=== PATIENT | male | born 1955 | race Caucasian/White ===

== ENCOUNTER 2019-05-27 17:24 | Inpatient (IN) | payer OTHER ==
[2019-05-27] MEDS ORDERED: CEFEPIME/SWI 2gm 2 GM/20 ML SYR IVP ONE (17:45)
[2019-05-27] MEDS ORDERED: VANCOMYCIN/NS 1 gm 1 GM/250 ML BAG IV ONE (17:45)
[2019-05-27 18:10] LABS: Basophils % 0.4 % (0-1.3); Hematocrit 23.3 % (39.6-49.0); Lymphocytes % 7.9 % (15.3-44.8); MPV 7.8 fL (7.6-11.3); RBC Red Blood Cell Count 2.83 M/uL (4.33-5.43)
--- NOTE | 2019-05-27 18:11 | ER ---
Nurse's Notes [facility] Name: Vikas Sharma Age: 63 yrs Sex: Male : 1955 Arrival Date: 05/27/2019 Time: 17:33 Bed 15 Private MD: Diagnosis: Severe sepsis without septic shock;Pneumonia, unspecified organism;Unspecified bacterial pneumonia;Hypotension;Anemia, unspecified;Gastrointestinal hemorrhage, unspecified Presentation: 05/27 17:30 Presenting complaint: EMS states: Decreased appetite, productive cough, generalized jl7 weakness x 2 to 3 weeks. Transition of care: patient was not received from another setting of care. Onset of symptoms was May 06, 2019. Risk Assessment: Do you want to hurt yourself or someone else? Patient reports no desire to harm self or others. Initial Sepsis Screen: Does the patient meet any 2 criteria? RR > 20 per min. HR > 90 bpm. Yes Does the patient have a suspected source of infection? Yes: Productive cough/pneumonia If YES to both, name of provider notified: Pablo Jack MD 17:30 Method Of Arrival: EMS: [facility] 7 17:30 Acuity: DAPHNE 2 jl7 17:30 Care prior to arrival: Medication(s) given: Normal saline infusion, 100 ml IV jl7 initiated. 18 GA, in the left antecubital area, Glucose check: 150. Triage Assessment: 17:30 General: Appears distressed, uncomfortable, ill, slender, Behavior is cooperative, jl7 restless. Pain: Complains of pain in all over Quality of pain is described as aching. Neuro: Level of Consciousness is awake, alert, obeys commands, Oriented to person, place, time, situation. Cardiovascular: Patient's skin is warm and dry. Respiratory: Airway is patent Respiratory effort is even, labored, with nasal flaring, Respiratory pattern is symmetrical, tachypnea Sputum is thick, Breath sounds are diminished in right middle lobe, right lower lobe and left posterior lower lobe. GI: Reports diarrhea. Derm: Skin is dry, Skin is pale, Skin temperature is warm. Historical: - Allergies: 19:14 No Known Allergies; jl7 - PMHx: 19:14 High Cholesterol; Hypertension; Psoriatic arthritis; jl7 - Immunization history:: Pneumococcal vaccine is up to date, Flu vaccine is up to date. - Coronavirus screen:: The patient has NOT traveled to [place] in the past 14 days. Proceed with normal triage process as indicated. - Family history:: not pertinent. - Social history:: Smoking status: Patient reports the use of cigarette tobacco products, smokes one pack cigarettes per day. "I quit 3 weeks ago.". - Ebola Screening: : No symptoms or risks identified at this time. Screenin:30 Abuse screen: Denies threats or abuse. Denies injuries from another. Nutritional jl7 screening: Had unintentional weight loss of 10 pounds or more. Intervention for positive screen: ED Physician notified. Tuberculosis screening: No symptoms or risk factors identified. 17:30 Fall Risk No fall in past 12 months (0 pts). No secondary diagnosis (0 pts). IV access jl7 (20 points). Ambulatory Aid- None/Bed Rest/Nurse Assist (0 pts). Gait- Weak (10 pts.). Mental Status- Oriented to own ability (0 pts). Total Liu Fall Scale indicates Low Risk Score (25-44 pts). Fall prevention measures have been instituted. Side Rails Up X 2 Placed close to Nursing Station Frequent Obs/Assesments occuring Family Present and informed to notify staff if they need to leave bedside As available Patient and Family Educated on Fall Prevention Program and strategies. Assessment: 17:30 General: See triage assessment. jl7 18:30 Reassessment: Patient appears in no apparent distress at this time. No changes from jl7 previously documented assessment. Patient and/or family updated on plan of care and expected duration. Pain level reassessed. Patient is alert, oriented x 3, equal unlabored respirations, skin warm/dry/pink. 20:21 Reassessment: ultrasound was done before taking the patient in the ICU. antibiotics are rv still infusing upon transfer. for blood transfusion after the antibiotics. patient is alert and oriented, GCS [address] Jack ordered additional medications and left, unable to verify the orders. Vital Signs: 17:30 BP 107 / 67; Pulse 109; Resp 28 S; Temp 98.6(O); Pulse Ox 95% on R/A; Weight 72.57 kg jl7 (R); 17:45 BP 99 / 60; Pulse 106; Resp 29 S; Pulse Ox 95% on R/A; jl7 19:00 BP 105 / 70; Pulse 93; Resp 18; Pulse Ox 100% on R/A; rv 20:00 BP 131 / 62; Pulse 104; Resp 24; Pulse Ox 99% on R/A; rv ED Course: 17:30 Arm band placed on right wrist. jl7 17:30 Patient has correct armband on for positive identification. Placed in gown. Bed in low jl7 position. Call light in reach. Side rails up X2. vehicle monitor technician on. Pulse ox on. NIBP on. Warm blanket given. 17:33 Patient arrived in ED. ae4 17:33 Pablo Jack MD is Attending Physician. ute 17:45 Initial lab(s) drawn, by wv, sent to lab. First set of blood cultures drawn by me. jl7 17:54 Sandro Infante RN is Primary Nurse. jl7 18:00 Second set of blood cultures drawn by lab staff. EKG done, by ED staff, reviewed by xiomy Jack MD. Maintain EMS IV. Dressing intact. Good blood return noted. Site clean \\T\\ dry. Gauge \\T\\ site: 18 left AC. 18:05 Radiology exam delayed due to lab results not completed at this time. (BUN/Creatinine). bq 18:07 Joel Manzano MD is Hospitalizing Provider. ute 18:15 Notified ED physician of a critical lab result(s). WBC 25.5, Hbg 7.5. sg 18:20 Notified ED physician of a critical lab result(s). Lac 2.2, AST 118, ALT 399. sg 18:35 Triage completed. jl7 18:35 Blood Blank, Deysi that orders for blood have been faxed, awaiting results from confirmation ABO/RH at this time per Katty. 19:00 Report given to EVELINA Thakur. jl7 19:00 Inserted saline lock: 20 gauge in right forearm, using aseptic technique. Blood jl7 collected. 19:02 CT completed. Patient tolerated procedure well. Patient moved back from CT. mw3 20:25 No provider procedures requiring assistance completed. Patient admitted, IV remains in rv place. Administered Medications: 17:58 Not Given (Duplicate Order): Cefepime 2 grams IVPB at 200 ml/hr once over 30 mins; (mix ute in NS 100 mL) 18:10 Drug: vancoMYCIN 1 grams Route: IVPB; Infused Over: 2 hrs; Site: right forearm; jl7 20:20 Follow up: IV Status: Infusion continued upon admission rv 18:15 Drug: Pepcid 20 mg Route: IVP; Site: left antecubital; jl7 19:12 Follow up: Response: No adverse reaction jl7 18:15 Drug: Xopenex 2.5 mg Route: Inhalation; jl7 18:15 Drug: AtroVENT Aerosol 0.5 mg Route: Inhalation; jl7 19:12 Follow up: Response: No adverse reaction jl7 18:20 Drug: NS 0.9% (30 ml/kg) 30 ml/kg Route: IV; Rate: bolus; Site: left antecubital; jl7 20:20 Follow up: IV Status: Completed infusion; IV Intake: 2000ml rv 18:20 Drug: Solu-CORTEF 100 mg Route: IVP; Site: right forearm; jl7 20:18 Follow up: Response: No adverse reaction rv 19:23 Drug: Zosyn 3.375 grams Route: IVPB; Infused Over: 60 mins; Site: left antecubital; rv 20:18 Follow up: IV Status: Infusion continued upon admission rv 19:44 Drug: ProTONIX 40 mg Route: IVP; Site: left antecubital; rv 20:15 Follow up: Response: No adverse reaction rv 19:46 Drug: Thiamine 100 mg Route: IV; Rate: per protocol; Site: right forearm; rv 20:17 Follow up: IV Status: Completed infusion rv 20:15 Not Given (unable to verify): vancoMYCIN 500 mg IVPB once over 1 hrs rv 20:17 Not Given (unable to verify): ProTONIX 40 mg IVP once rv Intake: 20:20 IV: 2000ml; Total: 2000ml. rv Outcome: 18:09 Decision to Hospitalize by Provider. ute 20:26 Admitted to Med/surg accompanied by nurse, via stretcher, room 3, on monitor, with rv chart, Report called to NATALI HOYT 20:26 Condition: stable 20:26 Discharge instructions given to patient, family, Instructed on the need for admit, Demonstrated understanding of instructions. 20:27 Patient left the ED. rv Signatures: Riaz Bolivar RN RN sg Anderson, Corey, MD MD cha Quilty, Betty bq Leal, Jahala, RN RN jl7 Roxanne Alvarez mw3 Clayton Modi, RN RN rv Mohan Wagner RN RN ae4
[2019-05-27] MEDS ORDERED: LEVALBUTEROL 1.25 MG/3 ML NEB ONE (18:12)
[2019-05-27] MEDS ORDERED: PIPER/TAZO/NS 3.375gm 3.375 GM/100 ML BAG ONE (18:12)
[2019-05-27] MEDS ORDERED: FAMOTIDINE 20 MG/2 ML VIAL IV ONE (18:12)
[2019-05-27] MEDS ORDERED: HYDROCORTISONE SUC 100 MG INJ ONE (18:12)
[2019-05-27] MEDS ORDERED: IPRATROPIUM BROM 0.5MG/2.5ML ONE (18:12)
[2019-05-27] MEDS ORDERED: NA CHLORIDE 0.9% 2,000 ML ONE (18:12)
--- NOTE | 2019-05-27 18:12 | EDPHYS ---
Physician Documentation [facility] Name: Vikas Sharma Age: 63 yrs Sex: Male : 1955 Arrival Date: 05/27/2019 Time: 17:33 Bed 15 Private MD: ED Physician Pablo Jack HPI: 05/27 17:36 This 63 yrs old Male presents to ER via Unassigned with complaints of weak, ute cough, anorexia and wt loss. 17:36 The patient or guardian reports cough, flu symptoms. Onset: The symptoms/episode ute began/occurred 14 day(s) ago. Modifying factors: The symptoms are alleviated by changing position, the symptoms are aggravated by nothing. fever, weak , hypotension x 14 days. Severity of symptoms: At their worst the symptoms were moderate, in the emergency department the symptoms are unchanged. Associated signs and symptoms: Pertinent positives: fever, rhinorrhea, sore throat. Historical: - Allergies: 19:14 No Known Allergies; jl7 - PMHx: 19:14 High Cholesterol; Hypertension; Psoriatic arthritis; jl7 - Immunization history:: Pneumococcal vaccine is up to date, Flu vaccine is up to date. - Coronavirus screen:: The patient has NOT traveled to [place] in the past 14 days. Proceed with normal triage process as indicated. - Family history:: not pertinent. - Social history:: Smoking status: Patient reports the use of cigarette tobacco products, smokes one pack cigarettes per day. "I quit 3 weeks ago.". - Ebola Screening: : No symptoms or risks identified at this time. ROS: 17:36 Constitutional: Negative for fever, chills, and weight loss, Eyes: Negative for injury, ute pain, redness, and discharge, ENT: Negative for injury, pain, and discharge, Neck: Negative for injury, pain, and swelling, Abdomen/GI: Negative for abdominal pain, nausea, vomiting, diarrhea, and constipation, Back: Negative for injury and pain, : Negative for injury, bleeding, discharge, and swelling, MS/Extremity: Negative for injury and deformity, Neuro: Negative for headache, weakness, numbness, tingling, and seizure. 17:36 Cardiovascular: Positive for palpitations. 17:36 Respiratory: Positive for cough, shortness of breath, at rest. Exam: 17:36 Constitutional: This is a well developed, well nourished patient who is awake, alert, ute and in no acute distress. Head/Face: Normocephalic, atraumatic. Eyes: Pupils equal round and reactive to light, extra-ocular motions intact. Lids and lashes normal. Conjunctiva and sclera are non-icteric and not injected. Cornea within normal limits. Periorbital areas with no swelling, redness, or edema. ENT: Nares patent. No nasal discharge, no septal abnormalities noted. Tympanic membranes are normal and external auditory canals are clear. Oropharynx with no redness, swelling, or masses, exudates, or evidence of obstruction, uvula midline. Mucous membranes moist. Neck: Trachea midline, no thyromegaly or masses palpated, and no cervical lymphadenopathy. Supple, full range of motion without nuchal rigidity, or vertebral point tenderness. No Meningismus. Chest/axilla: Normal chest wall appearance and motion. Nontender with no deformity. No lesions are appreciated. Abdomen/GI: Soft, non-tender, with normal bowel sounds. No distension or tympany. No guarding or rebound. No evidence of tenderness throughout. Back: No spinal tenderness. No costovertebral tenderness. Full range of motion. Male : Normal genitalia with no discharge or lesions. MS/ Extremity: Pulses equal, no cyanosis. Neurovascular intact. Full, normal range of motion. Neuro: Awake and alert, GCS 15, oriented to person, place, time, and situation. Cranial nerves II-XII grossly intact. Motor strength 5/5 in all extremities. Sensory grossly intact. Cerebellar exam normal. Normal gait. Psych: Awake, alert, with orientation to person, place and time. Behavior, mood, and affect are within normal limits. 17:36 Cardiovascular: Rate: tachycardic, Rhythm: regular, Pulses: Pulses are 4+ in bilateral radial, brachial, femoral, popliteal, posterior tibial and and dorsalis pedis arteries.. Heart sounds: normal, Edema: is not appreciated, JVD: is not appreciated. 18:07 Respiratory: the patient does not display signs of respiratory distress, Respirations: ute labored breathing, that is mild, Breath sounds: decreased breath sounds, rhonchi, that are moderate, are heard in the right middle lobe, right lower lobe, right posterior middle lobe and right posterior lower lobe, wheezing: expiratory 19:20 Abdomen/GI: Inspection: abdomen appears normal, Bowel sounds: normal, Palpation: soft, ute nontender, in all quadrants, Rectal exam: Stool: guaiac positive, hemorrhoid(s), are not appreciated, mass, is not appreciated, swelling, is not appreciated, tenderness, is not appreciated, fecal impaction, is not appreciated, the exam is chaperoned by the nurse, Liver: no appreciated palpable abnormalities, tenderness, is not appreciated, Hernia: not appreciated, no melena, no coffee ground emesis. Vital Signs: 17:30 BP 107 / 67; Pulse 109; Resp 28 S; Temp 98.6(O); Pulse Ox 95% on R/A; Weight 72.57 kg jl7 (R); 17:45 BP 99 / 60; Pulse 106; Resp 29 S; Pulse Ox 95% on R/A; jl7 19:00 BP 105 / 70; Pulse 93; Resp 18; Pulse Ox 100% on R/A; rv 20:00 BP 131 / 62; Pulse 104; Resp 24; Pulse Ox 99% on R/A; rv MDM: 17:39 Data reviewed: vital signs, nurses notes, old medical records, EKG, radiologic studies, [facility] CT scan, plain films. 17:39 Patient medically screened. [facility] 05/27 17:34 Order name: Basic Metabolic Panel [facility] 05/27 17:34 Order name: CBC with Diff [facility] 05/27 17:34 Order name: LFT's 05/27 17:34 Order name: Magnesium [facility] 05/27 17:34 Order name: NT PRO-BNP 05/27 17:34 Order name: PT-INR [facility] 05/27 17:34 Order name: Troponin (emerg Dept Use Only) ute 05/27 17:34 Order name: Amylase, Serum [facility] 05/27 17:34 Order name: Blood Culture Adult (2) [facility] 05/27 17:34 Order name: Ckmb [facility] 05/27 17:34 Order name: CPK [facility] 05/27 17:34 Order name: Lactate [facility] 05/27 17:34 Order name: Lipase [facility] 05/27 17:34 Order name: Procalcitonin 05/27 17:34 Order name: Ptt, Activated [facility] 05/27 17:34 Order name: Urine Microscopic Only 05/27 17:36 Order name: Flu [facility] 05/27 17:36 Order name: Type And Screen [facility] 05/27 18:02 Order name: Glucose, Ancillary Testing; Complete Time: 18:07 [facility] 05/27 18:22 Order name: Protime (+INR); Complete Time: 18:24 [facility] 05/27 18:22 Order name: PTT, Activated Partial Thromb; Complete Time: 18:24 [facility] 05/27 18:26 Order name: CBC with Automated Diff; Complete Time: 19:20 [facility] 05/27 18:29 Order name: Influenza Screen (A ; Complete Time: 18:31 [facility] 05/27 18:34 Order name: AMMONIA [facility] 05/27 18:39 Order name: Basic Metabolic Panel; Complete Time: 19:03 [facility] 05/27 18:39 Order name: Liver (Hepatic) Function; Complete Time: 19:03 [facility] 05/27 18:39 Order name: Creatine Phosphokinase; Complete Time: 19:03 [facility] 05/27 18:39 Order name: CKMB Creatine Kinase MB; Complete Time: 19:03 [facility] 05/27 18:39 Order name: Troponin (Emerg Dept Use Only); Complete Time: 19:03 [facility] 05/27 18:39 Order name: NT PRO-BNP; Complete Time: 19:03 [facility] 05/27 17:34 Order name: XRAY Chest (1 view) [facility] 05/27 17:34 Order name: EKG; Complete Time: 17:39 [facility] 05/27 17:34 Order name: Cardiac monitoring; Complete Time: 17:55 [facility] 05/27 18:00 Order name: CT Chest W/ Con [facility] 05/27 18:37 Order name: CT Abd/Pelvis - IV Contrast Only [facility] 05/27 18:39 Order name: Magnesium; Complete Time: 19:03 [facility] 05/27 18:39 Order name: Amylase Level; Complete Time: 19:03 [facility] 05/27 18:39 Order name: Lipase; Complete Time: 19:03 [facility] 05/27 18:39 Order name: Lactate; Complete Time: 19:03 [facility] 05/27 18:52 Order name: Type and Screen [facility] 05/27 18:52 Order name: Procalcitonin; Complete Time: 19:03 [facility] 05/27 18:55 Order name: ABO/RH no charge; Complete Time: 19:03 [facility] 05/27 19:06 Order name: US Abdomen Limited [facility] 05/27 19:16 Order name: Manual Differential; Complete Time: 19:20 [facility] 05/27 19:37 Order name: CT [facility] 05/27 19:47 Order name: RAD [facility] 05/27 20:01 Order name: Ammonia [facility] 05/27 20:06 Order name: Urine Dipstick--Ancillary (enter results) nj 05/27 20:16 Order name: Urine Dipstick-Ancillary [facility] 05/27 20:20 Order name: Urine Microscopic Only [facility] 05/27 17:34 Order name: EKG - Nurse/Tech; Complete Time: 18:36 [facility] 05/27 17:34 Order name: IV Saline Lock; Complete Time: 17:55 [facility] 05/27 17:34 Order name: Labs collected and sent; Complete Time: 17:55 [facility] 05/27 17:34 Order name: O2 Per Protocol; Complete Time: 17:55 [facility] 05/27 17:34 Order name: O2 Sat Monitoring; Complete Time: 17:55 [facility] 05/27 17:34 Order name: Accucheck; Complete Time: 17:55 [facility] 05/27 17:34 Order name: IV Saline Lock - Large Bore; Complete Time: 17:55 [facility] 05/27 17:34 Order name: Urine Dipstick-Ancillary (obtain specimen); Complete Time: 20:21 [facility] 05/27 18:25 Order name: Transfuse [facility] 05/27 18:38 Order name: IV Saline Lock - Large Bore; Complete Time: 19:01 [facility] Administered Medications: 17:58 Not Given (Duplicate Order): Cefepime 2 grams IVPB at 200 ml/hr once over 30 mins; (mix ute in NS 100 mL) 18:10 Drug: vancoMYCIN 1 grams Route: IVPB; Infused Over: 2 hrs; Site: right forearm; jl7 20:20 Follow up: IV Status: Infusion continued upon admission rv 18:15 Drug: Pepcid 20 mg Route: IVP; Site: left antecubital; jl7 19:12 Follow up: Response: No adverse reaction jl7 18:15 Drug: Xopenex 2.5 mg Route: Inhalation; jl7 18:15 Drug: AtroVENT Aerosol 0.5 mg Route: Inhalation; jl7 19:12 Follow up: Response: No adverse reaction jl7 18:20 Drug: NS 0.9% (30 ml/kg) 30 ml/kg Route: IV; Rate: bolus; Site: left antecubital; jl7 20:20 Follow up: IV Status: Completed infusion; IV Intake: 2000ml rv 18:20 Drug: Solu-CORTEF 100 mg Route: IVP; Site: right forearm; jl7 20:18 Follow up: Response: No adverse reaction rv 19:23 Drug: Zosyn 3.375 grams Route: IVPB; Infused Over: 60 mins; Site: left antecubital; rv 20:18 Follow up: IV Status: Infusion continued upon admission rv 19:44 Drug: ProTONIX 40 mg Route: IVP; Site: left antecubital; rv 20:15 Follow up: Response: No adverse reaction rv 19:46 Drug: Thiamine 100 mg Route: IV; Rate: per protocol; Site: right forearm; rv 20:17 Follow up: IV Status: Completed infusion rv 20:15 Not Given (unable to verify): vancoMYCIN 500 mg IVPB once over 1 hrs rv 20:17 Not Given (unable to verify): ProTONIX 40 mg IVP once rv Disposition: 05/27/19 18:09 Hospitalization ordered by Joel Manzano for Inpatient Admission. Preliminary diagnosis are Severe sepsis without septic shock, Pneumonia, unspecified organism, Unspecified bacterial pneumonia, Hypotension, Anemia, unspecified, Gastrointestinal hemorrhage, unspecified. - Bed requested for Intensive Care Unit. - Status is Inpatient Admission. rv - Condition is Fair. - Problem is new. - Symptoms have improved. Signatures: Dispatcher [employer] EDMS Gabby Franklin RN RN mw Anderson, Corey, MD MD cha Leal, Jahala, RN RN jl7 Clayton Modi RN RN rv Corrections: (The following items were deleted from the chart) 18:26 18:09 Hospitalization Ordered by Joel Manzano MD for Inpatient Admission. Preliminary [facility] diagnosis is Severe sepsis without septic shock; Pneumonia, unspecified organism; Unspecified bacterial pneumonia; Hypotension. Bed requested for Telemetry/MedSurg (Inpatient). Status is Inpatient Admission. Condition is Fair. Problem is new. Symptoms have improved. ute 18:38 18:26 05/27/2019 18:09 Hospitalization Ordered by Joel Manzano MD for Inpatient [facility] Admission. Preliminary diagnosis is Severe sepsis without septic shock; Pneumonia, unspecified organism; Unspecified bacterial pneumonia; Hypotension; Anemia, unspecified. Bed requested for Telemetry/MedSurg (Inpatient). Status is Inpatient Admission. Condition is Fair. Problem is new. Symptoms have improved. [facility] 19:07 18:38 05/27/2019 18:09 Hospitalization Ordered by Joel Manzano MD for Inpatient mw Admission. Preliminary diagnosis is Severe sepsis without septic shock; Pneumonia, unspecified organism; Unspecified bacterial pneumonia; Hypotension; Anemia, unspecified; Gastrointestinal hemorrhage, unspecified. Bed requested for Intensive Care Unit. Status is Inpatient Admission. Condition is Fair. Problem is new. Symptoms have improved. [facility] 20:27 19:07 05/27/2019 18:09 Hospitalization Ordered by Joel Manzano MD for Inpatient rv Admission. Preliminary diagnosis is Severe sepsis without septic shock; Pneumonia, unspecified organism; Unspecified bacterial pneumonia; Hypotension; Anemia, unspecified; Gastrointestinal hemorrhage, unspecified. Bed requested for Intensive Care Unit. Status is Inpatient Admission. Condition is Fair. Problem is new. Symptoms have improved. mw
[2019-05-27 18:13] LABS: Protime INR 1.65
[2019-05-27 18:33] LABS: Albumin 1.2 g/dL (3.4-5.0); Alkaline Phosphatase 446 U/L (45-117); Amylase Level 30 U/L (25-115); BUN Blood Urea Nitrogen 31 mg/dL (7-18); Bicarbonate 26 mmol/L (21-32); Bilirubin Direct 0.3 mg/dL (0-0.2); Bilirubin Total 0.5 mg/dL (0.2-1.0); CKMB Creatine Kinase MB < 1.0 ng/mL (0.3-3.6); Creatine Phosphokinase 22 U/L (39-308); Glucose Level 124 mg/dL (74-106); Lipase 101 U/L (73-393); Magnesium 2.2 mg/dL (1.8-2.4); NT PRO-BNP 426 pg/mL (<125); Potassium 3.7 mmol/L (3.5-5.1); Sodium Level 135 mmol/L (136-145); Troponin (Emerg Dept Use Only) < 0.02 ng/mL (0.0-0.045)
[2019-05-27 18:34] LABS: ALT/SGPT 399 U/L (12-78); AST/SGOT 518 U/L (15-37)
[2019-05-27 19:15] LABS: Anisocytosis 2+; Blood Morphology Comment NOTED (NOT SEEN); Platelet Estimate INCR
--- NOTE | 2019-05-27 19:30 | RAD REPORT ---
EXAM DESCRIPTION: CT - Chest Abdomen Pelvis W Cont - 05/27/2019 7:02 pm CLINICAL HISTORY: Chest and abdominal pain COMPARISON: None TECHNIQUE: Computed axial tomography of the chest, abdomen and pelvis was obtained. 100 cc Isovue-30 0 was administered intravenously. Oral contrast was not requested. This limits evaluation of bowel. All CT scans are performed using dose optimization technique as appropriate and may include automated exposure control or mA/KV adjustment according to patient size. FINDINGS: 12 centimeter right lower lobe opacity contains several small cavities can fluid. There is surrounding alveolar opacities. 5 centimeter right upper lobe opacity. Right lower lobe volume loss. Occlusion of a right lower lobe bronchus Calcified hilar and mediastinal lymph nodes. Several small noncalcified mediastinal and hilar lymph n odes are also present. No pericardial effusion. No pleural effusion Hepatic and splenic granulomata. The pancreas, adrenals and kidneys unremarkable Normal appendix. Bilateral hip arthroplasties. Artifact from the prostheses obscures adjacent detail. Moderate right inguinal hernia contains fat. IMPRESSION: 12 centimeter right lower lobe opacity may represent cavitary pneumonia. Neoplasm can al so have this appearance. Additional right lower lobe opacities may represent pneumonia or postobstruc tive pneumonitis. 5 centimeter right upper lobe opacity probably pneumonia. Again neoplasm can have this appearance. The right lung opacities should be followed until they have cleared to help exclude underlying mass.
--- NOTE | 2019-05-27 19:31 | RAD REPORT ---
EXAM DESCRIPTION: [place] Single View05/27/2019 5:50 pm CLINICAL HISTORY: cough COMPARISON: 2017 FINDINGS: A large right basilar opacity Moderate additional right lung opacities. Right lung volume loss Left lung appears clear. Heart is normal size IMPRESSION: Right lung opacities may represent pneumonia or mass with postobstructive atelectasis
[2019-05-27] MEDS ORDERED: PANTOPRAZOLE 40 MG INJ ONE (19:41)
[2019-05-27] MEDS ORDERED: THIAMINE 200 MG/2 ML INJ ONE (19:41)
[2019-05-27] MEDS ORDERED: SODIUM CHLORIDE 0.9% 10ML INJ IV PRN (19:45)
[2019-05-27] MEDS ORDERED: IPRATROPIUM BROM 0.5MG/2.5ML NEB PRN (19:45)
[2019-05-27] MEDS ORDERED: ONDANSETRON 4 MG/2 ML VIAL IV PRN (19:45)
[2019-05-27] MEDS ORDERED: ACETAMINOPHEN 500 MG TAB PO PRN (19:45)
[2019-05-27] MEDS ORDERED: VANCOMYCIN/NS 1 gm 1 GM/250 ML BAG IVPB SCH (19:45)
[2019-05-27] MEDS ORDERED: NA CHLORIDE 0.9% 1,000 ML IV SCH (19:45)
[2019-05-27] MEDS ORDERED: ALBUTEROL 2.5 MG/3 ML NEB SOL NEB PRN (19:45)
[2019-05-27 20:13] LABS: Urine Blood NEGATIVE (NEG); Urine Glucose NEGATIVE (NEG); Urine Protein 1+ (NEG); Urine Specific Gravity 1.015 (1.005-1.030)
[2019-05-27 20:19] LABS: Urine Amorphous Sediment 1+ /HPF (NONE SEEN); Urine Bacteria <20 /HPF (NONE SEEN); Urine Culture Reflex Order NOT NEEDED; Urine RBC NONE SEEN /HPF (NONE SEEN)
[2019-05-27] MEDS ORDERED: NA CHLORIDE 0.9% 250 ML ONE ×2 (20:51→23:05)
[2019-05-27 20:59] LABS: RBC Red Blood Cell Count 2.52 M/uL (4.33-5.43)
[2019-05-27] MEDS ORDERED: FAMOTIDINE 20 MG/2 ML VIAL IV SCH (21:00)
[2019-05-27] MEDS: HYDROCODONE/APAP 5/325 MG TAB PO PRN (21:10)
[2019-05-27 21:26] LABS: Transferrin 115 mg/dL (200-360); Troponin I < 0.02 ng/mL (0.0-0.045)
[2019-05-27] MEDS ORDERED: VANCOMYCIN 750 MG in NA CHLORIDE 0.9% 150 ML IVPB ONE (22:45)
[2019-05-27] MEDS ORDERED: VANCOMYCIN 1 GM/VIAL ONE (23:05)
[2019-05-27] MEDS ORDERED: NA CHLORIDE 0.9% 100 ML ONE (23:39)
[2019-05-27] MEDS ORDERED: PIPERACIL/TAZO 3.375 GM VIAL IV ONE (23:39)
[2019-05-28] MEDS: PIPER/TAZO/NS 3.375gm 3.375 GM/100 ML BAG IVPB SCH ×3 (00:14→17:01)
[2019-05-28] MEDS ORDERED: METHYLPREDNISOLONE 40 MG INJ IV SCH (01:00)
[2019-05-28 05:03] LABS: Absolute Lymphocytes (CBC) 1.2 K/uL (0.7-4.9); Basophils % 0.1 % (0-1.3); Hematocrit 23.4 % (39.6-49.0); Lymphocytes % 4.9 % (15.3-44.8); MPV 7.6 fL (7.6-11.3); RBC Red Blood Cell Count 2.79 M/uL (4.33-5.43)
[2019-05-28 05:20] LABS: BUN Blood Urea Nitrogen 18 mg/dL (7-18); Bicarbonate 25 mmol/L (21-32); Glucose Level 109 mg/dL (74-106); NT PRO-BNP 539 pg/mL (<125); Potassium 3.7 mmol/L (3.5-5.1); Sodium Level 138 mmol/L (136-145)
[2019-05-28] MEDS: HYDROCODONE/APAP 5/325 MG TAB PO PRN ×5 (05:20→23:10)
[2019-05-28 05:33] VITALS: BMI 26.3
[2019-05-28] MEDS ORDERED: NA CHLORIDE 0.9% 100 ML ONE (05:52)
[2019-05-28] MEDS ORDERED: PIPERACIL/TAZO 3.375 GM VIAL IV ONE (05:52)
--- NOTE | 2019-05-28 07:49 | RAD REPORT ---
EXAM DESCRIPTION: US - Abdomen Exam Limited - 05/27/2019 8:03 pm CLINICAL HISTORY: Abdominal pain. COMPARISON: None. FINDINGS: The gallbladder is mildly contracted. Gallbladder wall borderline thickened. A gallstone i s not seen The biliary tree is normal caliber. IMPRESSION: Mildly contracted gallbladder. Borderline gallbladder wall thickening may be the sequela of the gallbladder being contracted. Less likely patient has acalculous cholecystitis. This can be m onitored on a subsequent exam
--- NOTE | 2019-05-28 08:05 | P.CNS ---
Date of Consult: 05/28/19 Reason for Consult: Abnormal chest x-ray pneumonia Chief Complaint: Weakness cough chest pain History of Present Illness: Patient is 63 years of age admitted with a 3 week history of progressive weakness was not eating cough right-sided chest pain denies any fever or chills patient is an active smoker quit 2 weeks ago patient denies any history of hematemesis hematuria for any GI bleeding this found to have pneumonia on the right side Allergies No Known Allergies Allergy (Verified 05/04/16 08:26) Home Medications: Adalimumab [Humira 40 MG/0.8 ML] 40 mg SQ SEECOM 05/27/19 Celecoxib [Celebrex] 200 mg PO BID 05/27/19 Gabapentin [Neurontin] 800 mg PO TID 05/27/19 Hydrocodone Bit/Acetaminophen [Hydrocodon-Acetaminophn 10-325] 1 each PO QIDP PRN 05/27/19 Pravastatin Sodium [Pravachol] 40 mg PO BEDTIME 05/27/19 lisinopriL [Lisinopril] 10 mg PO DAILY 05/27/19 - Past Medical/Surgical History Diabetic: No -: Htn -: high Cholesterol -: psoriatic arthritis -: R Knee Surgery -: Gideon Hip repalcement -: Hernia Repair x2 - Social History Smoking Status: Current every day smoker Alcohol use: No CD- Drugs: No Caffeine use: Yes Place of Residence: Home Review of Systems 10-point ROS is otherwise unremarkable General: Weakness Respiratory: Cough, Shortness of Breath Physical Examination Temp Pulse Resp BP Pulse Ox 98 F 96 H 22 H 128/69 97 05/28/19 04:00 05/28/19 05:00 05/28/19 05:00 05/28/19 05:00 05/28/19 05:00 General: Alert, Oriented x3 HEENT: Normocephalic Neck: Supple Respiratory: Crackles/rales (Some crackles on the right side) Cardiovascular: No edema, Regular rate/rhythm, Normal S1 S2 Laboratory Data (last 24 hrs) 05/27/19 17:35: PT 19.1 H, INR 1.65, APTT 27.7 05/27/19 17:35: WBC 25.5 H*, Hgb 7.5 L*, Hct 23.3 L, Plt Count 693 H 05/27/19 17:35: Sodium 135 L, Potassium 3.7, BUN 31 H, Creatinine 0.89, Glucose 124 H, Magnesium 2.2, Total Bilirubin 0.5, AST 518 H*, ALT 399 H*, Alkaline Phosphatase 446 H, Amylase 30, Lipase 101 05/27/19 17:34: Lipase Cancelled - Problems (1) Pneumonia Current Visit: Yes Status: Acute Plan: Patient is 63 years of age admitted with weakness shortness of breath cough active smoker quit 2 weeks ago found to have consolidation pneumonia on the right side elevated white count continue with vancomycin and Zosyn for now cultures are pending is not any bronchodilators appears to have some volume loss on the right side appears to have necrosis in the right lower lobe may be an element of post obstruction continue with antibiotics he may need a bronchoscopy later pro calcitonin level elevated (2) Anemia Current Visit: Yes Status: Acute Plan: Patient has normocytic anemia with normal retic count was likely hypo proliferative type denies any evidence of bleeding is ferritin count is elevated reviewed related to his underlying illness Юлия function is normal Qualifiers: Anemia type: unspecified type Qualified Code(s): D64.9 - Anemia, unspecified
--- NOTE | 2019-05-28 08:09 | EKG ---
Test Date: 2019-05-28 Test Time: 08:01:02 Day Care Home Mother: STEVIE MEASUREMENT RESULTS: Intervals: Rate: 85 NC: 164 QRSD: 108 QT: 410 QTc: 487 [place]: P: 65 NC: 164 QRS: 57 T: 43 INTERPRETIVE STATEMENTS: Normal sinus rhythm Prolonged QT Abnormal ECG Compared to ECG 05/27/2019 18:36:35 No significant changes Electronically Signed On 05-28-19 08:08:28 COUNTRY MANAGER by Jonh Garnica
--- NOTE | 2019-05-28 08:10 | EKG ---
Test Date: 2019-05-27 Test Time: 18:36:35 Hand Sole Sewer: BRYANT MEASUREMENT RESULTS: Intervals: Rate: 92 NH: 154 QRSD: 106 QT: 418 QTc: 516 [place]: P: 64 NH: 154 QRS: 64 T: 70 INTERPRETIVE STATEMENTS: Normal sinus rhythm Prolonged QT Abnormal ECG Compared to ECG 05/04/2016 08:38:45 Prolonged QT interval now present Myocardial infarct finding no longer present Electronically Signed On 05-28-19 08:09:18 OUTDOOR ADVENTURE LEADER by Jonh Garnica
[2019-05-28] MEDS ORDERED: ALBUTEROL 2.5 MG/3 ML NEB SOL NEB PRN ×2 (08:11→18:00)
--- NOTE | 2019-05-28 08:12 | RAD REPORT ---
EXAM DESCRIPTION: [place] Single View05/28/2019 5:32 am CLINICAL HISTORY: Chest pain COMPARISON: May 27 FINDINGS: No change in the right lung opacities with volume loss Left lung appears clear. Heart is normal size IMPRESSION: No change in the right lung opacities with volume loss
[2019-05-28] MEDS ORDERED: PANTOPRAZOLE 40 MG INJ IVP SCH (09:00)
[2019-05-28] MEDS: ENOXAPARIN 40 MG/0.4 ML SQ SCH (09:32)
[2019-05-28] MEDS ORDERED: PIPER/TAZO/NS 3.375gm 3.375 GM/100 ML BAG IVPB SCH (11:00)
[2019-05-28] MEDS: VANCOMYCIN 1.25 GM in NA CHLORIDE 0.9% 250 ML IVPB SCH ×2 (11:21→22:14)
[2019-05-28] MEDS: ARFORMOTEROL TARTRATE 15 MCG/2 ML VIAL.NEB NEB SCH ×2 (13:59→19:25)
[2019-05-28] MEDS ORDERED: ACETAMINOPHEN 325 MG TABLET PO PRN ×2 (14:00→18:00)
[2019-05-28] MEDS ORDERED: VANCOMYCIN 1.25 GM in NA CHLORIDE 0.9% 250 ML IVPB SCH (16:00)
[2019-05-28] MEDS: PANTOPRAZOLE 40MG TABLET PO SCH (17:44)
[2019-05-28] MEDS ORDERED: ADALIMUMAB 40 MG SQ SCH (17:45)
--- NOTE | 2019-05-28 17:58 | P.HP ---
Certification for Inpatient Patient admitted to: Inpatient With expected LOS: >2 Midnights Practitioner: I am a practitioner with admitting privileges, knowledge of patient current condition, hospital course, and medical plan of care. Services: Services provided to patient in accordance with Admission requirements found in Title 42 Section 412.3 of the Code of Federal Regulations Patient History Date of Service: 05/28/19 Reason for admission: Weakness cough chest pain History of Present Illness: MR. SMITH IS A CHRONIC PAIN PATIENT WHO GOES TO PAIN MD REGULARLY, COMES TO HOSPITAL HE IS SICK FOR 3 WEEKS. HE HAS BEEN COUGHING, DYSPNEIC AND WHEN CAME TO ER HIS WBC IS 25K. HE HAS MULTIFOCAL LOBAR PNEUMONIA. HE DID NOT WANT TO COME TO ANYONE BUT HIS INSISTED. HE IS NOW IN ICU. Allergies No Known Allergies Allergy (Verified 05/04/16 08:26) Home Medications: Adalimumab [Humira 40 MG/0.8 ML] 40 mg SQ SEECOM 05/27/19 Celecoxib [Celebrex] 200 mg PO BID 05/27/19 Gabapentin [Neurontin] 800 mg PO TID 05/27/19 Hydrocodone Bit/Acetaminophen [Hydrocodon-Acetaminophn 10-325] 1 each PO QIDP PRN 05/27/19 Pravastatin Sodium [Pravachol] 40 mg PO BEDTIME 05/27/19 lisinopriL [Lisinopril] 10 mg PO DAILY 05/27/19 - Past Medical/Surgical History Has patient received pneumonia vaccine in the past: No Diabetic: No -: Htn -: high Cholesterol -: psoriatic arthritis -: R Knee Surgery -: Gideon Hip repalcement -: Hernia Repair x2 - Social History Smoking Status: Former smoker Alcohol use: No CD- Drugs: No Caffeine use: Yes Place of Residence: Home Review of Systems 10-point ROS is otherwise unremarkable General: Weakness, Malaise Respiratory: Shortness of Breath Physical Examination - Vital Signs Temperature: 98.5 F Blood Pressure: 106/55 Pulse: 105 Respirations: 18 Pulse Ox (%): 93 - Physical Exam General: Mild distress, Moderate distress HEENT: Atraumatic, PERRLA, Mucous membr. moist/pink, EOMI, Sclerae nonicteric Neck: Supple, 2+ carotid pulse no bruit, No LAD, Without JVD or thyroid abnormality Respiratory: Diminished Cardiovascular: Regular rate/rhythm, Normal S1 S2 Gastrointestinal: Normal bowel sounds, No tenderness Musculoskeletal: No tenderness Integumentary: No rashes Neurological: Normal gait, Normal speech, Normal strength at 5/5 x4 extr, Normal tone, Normal affect Lymphatics: No axilla or inguinal lymphadenopathy - Studies Laboratory Data (last 24 hrs) 05/27/19 17:35: PT 19.1 H, INR 1.65, APTT 27.7 05/27/19 17:35: WBC 25.5 H*, Hgb 7.5 L*, Hct 23.3 L, Plt Count 693 H 05/27/19 17:35: Sodium 135 L, Potassium 3.7, BUN 31 H, Creatinine 0.89, Glucose 124 H, Magnesium 2.2, Total Bilirubin 0.5, AST 518 H*, ALT 399 H*, Alkaline Phosphatase 446 H, Amylase 30, Lipase 101 05/27/19 17:34: Lipase Cancelled Microbiology Data (last 24 hrs): 05/27/19 17:50 Nasopharnyx Influenza Type A Antigen Screen - Final 05/27/19 17:50 Nasopharnyx Influenza Type B Antigen Screen - Final Assessment and Plan - Problems (Diagnosis) (1) Anemia Current Visit: Yes Status: Acute Plan: THIS IS NEW FOR HIM. HG WAS NORMAL LAST YEAR. HE HAS ANEMIA OF CHRONIC DISEASE. LOW IRON, LOW TIBC, VERY HIGH FERRITIN. CHECK SONYA AND RF. GI ANSARI WHEN IS STABLE. Qualifiers: Anemia type: unspecified type Qualified Code(s): D64.9 - Anemia, unspecified (2) Pneumonia Current Visit: Yes Status: Acute Plan: IV ABX VANCOMYCIN AND ZOSYN. IT IS A SEVERE PNEUMONIA AND SO NEED DUAL COVERAGE UNTIL ANY ANSWER FROM SPUTUM CULTURE. NEBS. DC STEROIDS. DR. SEGURA ON CASE. - Advance Directives Does patient have a Living Will: No Does patient have a Durable POA for Healthcare: No
[2019-05-28] MEDS ORDERED: IPRATROPIUM BROM 0.5MG/2.5ML NEB PRN (18:00)
[2019-05-28] MEDS: GABAPENTIN 400 MG CAP PO SCH (20:21)
[2019-05-28] MEDS ORDERED: HOME MED 1 EA UNK (Gabapentin [Neurontin] 800 MG) PO SCH (21:00)
[2019-05-28] MEDS ORDERED: NA CHLORIDE 0.9% 250 ML ONE (21:27)
[2019-05-28] MEDS ORDERED: VANCOMYCIN 1 GM/VIAL ONE (21:44)
[2019-05-29] MEDS: HYDROCODONE/APAP 5/325 MG TAB PO PRN ×2 (04:53→23:29)
[2019-05-29 06:29] LABS: Absolute Lymphocytes (CBC) 1.7 K/uL (0.7-4.9); Basophils % 1.2 % (0-1.3); Hematocrit 23.5 % (39.6-49.0); Lymphocytes % 7.3 % (15.3-44.8); MPV 7.8 fL (7.6-11.3); RBC Red Blood Cell Count 2.78 M/uL (4.33-5.43)
[2019-05-29 06:41] LABS: BUN Blood Urea Nitrogen 10 mg/dL (7-18); Bicarbonate 26 mmol/L (21-32); Glucose Level 86 mg/dL (74-106); Potassium 3.9 mmol/L (3.5-5.1); Sodium Level 135 mmol/L (136-145)
[2019-05-29] MEDS: GABAPENTIN 400 MG CAP PO SCH ×3 (08:21→21:08)
[2019-05-29] MEDS: PANTOPRAZOLE 40MG TABLET PO SCH (08:21)
[2019-05-29] MEDS: PIPER/TAZO/NS 3.375gm 3.375 GM/100 ML BAG IVPB SCH ×3 (08:21→16:46)
[2019-05-29] MEDS: ENOXAPARIN 40 MG/0.4 ML SQ SCH (08:21)
--- NOTE | 2019-05-29 08:49 | P.PN ---
Subjective Date of Service: 05/29/19 Chief Complaint: Pneumonia Subjective: Improving (Patient is improving feeling better denies any chest pain cough sputum hemoptysis no fever or chills) Review of Systems General: Weakness Respiratory: Shortness of Breath Physical Examination - Vital Signs Temperature: 99.4 F Blood Pressure: 112/61 Pulse: 90 Respirations: 20 Pulse Ox (%): 94 - Physical Exam General: Oriented x3 Respiratory: Diminished (Diminished air entry in the right side with crackles) Cardiovascular: No edema, Normal S1 S2 Assessment & Plan - Problems (Diagnosis) (1) Pneumonia Current Visit: Yes Status: Acute Plan: Patient is 63 years of age admitted with necrotizing pneumonia surprisingly has minimal symptoms white count is still elevated patient is on Zosyn vancomycin as a normocytic anemia probably anemia of chronic disorders patient has an autoimmune arthritis repeat chest x-ray schedule patient for bronchoscopy to rule out endobronchial obstruction chest x-ray shows some volume loss on the right side blood pressure is little low discuss with the patient start on IV fluids Qualifiers: Pneumonia type: due to unspecified organism (2) Anemia Current Visit: Yes Status: Acute Plan: Patient has normocytic anemia with normal retic count was likely hypo proliferative type denies any evidence of bleeding is ferritin count is elevated reviewed related to his underlying illness Юлия function is normal Qualifiers: Anemia type: unspecified type Qualified Code(s): D64.9 - Anemia, unspecified
[2019-05-29 09:40] LABS: Platelet Estimate INCR; Platelets, Giant PRESENT; Urine White Blood Cell Casts OK
[2019-05-29 09:41] LABS: Anisocytosis 2+; Blood Morphology Comment NOTED (NOT SEEN); Hypochromasia 1+
[2019-05-29] MEDS: NA CHLORIDE 0.9% 1,000 ML IV SCH ×2 (10:30→19:00)
--- NOTE | 2019-05-29 10:30 | RAD REPORT ---
EXAM DESCRIPTION: RAD - Chest Pa And Lat (2 Views) - 05/29/2019 10:14 am CLINICAL HISTORY: Pneumonia COMPARISON: Chest Single View dated 05/28/2019; Chest Single View dated 05/27/2019; Chest Abdomen Pelv is W Cont dated 05/27/2019 TECHNIQUE: Frontal and lateral views of the chest were obtained. FINDINGS: The lungs are normal volume. Left lung remains clear. Extensive right lung base opacificat ion is present. Cavitation component in the mid chest has not changed. Right hemidiaphragm is partial ly obscured. Opacification extending into the upper right lung field has not changed. Cavitary pneum onia remains a primary consideration. A cavitary or necrotic malignancy cannot be excluded until afte r medical management and clearing of the lung parenchymal opacities. Right upper lobe opacification h as not changed. Heart size is normal and central vasculature is within normal limits. No pleural effusion or pneumo thorax seen. No acute bony finding noted. No aortic abnormality. IMPRESSION: Extensive right lung parenchymal opacification with central right lung cavitation not gottlieb bstantially different from comparison imaging.
[2019-05-29] MEDS: HYDROCODONE/APAP 10/325 TAB PO PRN ×2 (11:07→17:05)
[2019-05-29] MEDS: VANCOMYCIN 1.25 GM in NA CHLORIDE 0.9% 250 ML IVPB SCH ×2 (11:50→23:29)
[2019-05-29] MEDS: ARFORMOTEROL TARTRATE 15 MCG/2 ML VIAL.NEB NEB SCH ×2 (14:42→19:55)
[2019-05-29] MEDS ORDERED: NA CHLORIDE 0.9% 250 ML IV ONE (20:32)
[2019-05-29] MEDS ORDERED: Meropenem 1000 MG/VIAL IV SCH (21:00)
[2019-05-29] MEDS: ALPRAZOLAM 0.25 MG TABLET PO PRN (21:22)
--- NOTE | 2019-05-29 23:03 | PN ---
Subjective: Mr. Dempsey is feeling lot better. Eating lot better now. Denies any chest pain, naus ea, vomiting. Objective: Vital Signs: Blood pressure 145/68, pulse is 103, temperature 98.5. HEENT: No JVD. No carotid bruits. Lungs: Decreased breath sounds bilaterally. Heart: Regular. Abdomen: No guardi ng. No rebound. No rigidity. Laboratory Data: White count is down to 23,000 from 25,000. Hemoglobin is stable at 7.5. Hypochrom ic anisocytosis in the peripheral smear. Reticulocyte count is low at 0.03. On further investigatio n of anemia, patient has low iron, low TIBC, low transferrin, low transferrin saturation, and high fe rritin level. SGOT, SGPT have been high and will be rechecked again. Procalcitonin 0.75. Assessment And Plan: 1.Large pneumonia. Consult Dr. Vidal. Patient is on medications, Zosyn and vancomycin. Sputum c ultures pending. Malignancy cannot be ruled out. He has been a heavy smoker all his life. We will have to follow with bronchoscopy per Dr. Vidal. 2.Anemia of chronic disease. The patient has been on Humira before for rheumatoid arthritis and rhe umatoid arthritis can give the anemia of chronic disease, but at the same time this hemoglobin is kyra n compared to about 6 or 8 months ago down from normal to this level. He needs upper and lower endos copy, which he has refused before and Dr. Mayfield has seen him. When clinically stable, he can do e ndoscopies. Currently, he is quite stable, hypoxic, and has a large pneumonia. Prognosis overall guarded. Patient does not really care much about his condition. He does not reall y want to evaluate anemia any further. I am going to get a automation qa analyst to see him if he is willing to. RVD/MODL Voice ID: [id number] Report ID: [id number]
[2019-05-29] MEDS ORDERED: NA CHLORIDE 0.9% 1,000 ML IV ONE (23:08)
[2019-05-30] MEDS: NA CHLORIDE 0.9% 1,000 ML IV SCH ×2 (05:00→14:07)
[2019-05-30] MEDS: HYDROCODONE/APAP 5/325 MG TAB PO PRN ×4 (05:27→23:27)
[2019-05-30 06:23] LABS: Absolute Lymphocytes (CBC) 1.9 K/uL (0.7-4.9); Basophils % 0.4 % (0-1.3); Hematocrit 22.3 % (39.6-49.0); Lymphocytes % 10.1 % (15.3-44.8); MPV 7.6 fL (7.6-11.3); RBC Red Blood Cell Count 2.64 M/uL (4.33-5.43)
[2019-05-30 06:38] LABS: BUN Blood Urea Nitrogen 8 mg/dL (7-18); Bicarbonate 27 mmol/L (21-32); Glucose Level 89 mg/dL (74-106); Potassium 3.7 mmol/L (3.5-5.1); Sodium Level 139 mmol/L (136-145)
[2019-05-30] MEDS ORDERED: Phenylephrine HCl 10 MG/ML 1 ML VIAL ONE (07:11)
[2019-05-30] MEDS ORDERED: GLYCOPYRROLATE 0.2 MG/ML SYR ONE (07:12)
[2019-05-30] MEDS: PANTOPRAZOLE 40MG TABLET PO SCH (07:30)
[2019-05-30] MEDS ORDERED: LIDOCAINE 1% MPF 30 ML VIAL ONE (07:32)
[2019-05-30] MEDS ORDERED: LIDOCAINE VISCOUS 2% SOLN 15 ML UDC ONE (07:32)
[2019-05-30] MEDS ORDERED: EPINEPHRINE/PF 1 MG/ML AMP ONE (07:32)
[2019-05-30] MEDS ORDERED: Ringers Lactate 1,000 ML IV ONE (07:39)
[2019-05-30] MEDS: GABAPENTIN 400 MG CAP PO SCH ×3 (07:46→20:14)
[2019-05-30] MEDS: Meropenem 1,000 MG in NA CHLORIDE 0.9% 100 ML IV SCH ×3 (07:46→20:14)
[2019-05-30] MEDS: ARFORMOTEROL TARTRATE 15 MCG/2 ML VIAL.NEB NEB SCH ×2 (08:06→19:55)
[2019-05-30] MEDS ORDERED: LIDOCAINE 1% MPF 5 ML VIAL ONE (08:21)
[2019-05-30] MEDS ORDERED: FENTANYL CITR 100 MCG/2 ML ONE (08:21)
[2019-05-30] MEDS ORDERED: propofoL 200 MG/20 ML VIAL IV ONE ×2 (08:21)
--- NOTE | 2019-05-30 08:46 | P.OP ---
Date of Service: 05/30/19 (Bronchoscopy with BAL and transbronchial biopsy) Findings and Operative Technique Patient is 63 years of age admitted with necrotizing pneumonia om volume loss on the right side bronchoscopy was done to rule out an obstruction Findings normal vocal cords normal trachea normal left-sided bronchial anatomy is some thickening of the right lower lobe naresh minor naresh in addition considerable amount of past was found bruising from the superior segment and the lower lobes no obvious mass multiple biopsies is specimens were obtained specimens were sent off for cytology and cultures Patient did not experience any hypertension or hypoxemia
--- NOTE | 2019-05-30 09:27 | RAD REPORT ---
EXAM DESCRIPTION: RAD - FLUORO-GUIDE FOR BRONCH UPT1HR - 05/30/2019 9:15 am CLINICAL HISTORY: RT LUNG BX COMPARISON: Chest Abdomen Pelvis W Cont dated 05/27/2019 FINDINGS: Fluoroscopy time 1.9 minutes.
[2019-05-30] MEDS ORDERED: NA CHLORIDE 0.9% 250 ML ONE ×2 (10:20→17:33)
--- NOTE | 2019-05-30 10:23 | RAD REPORT ---
EXAM DESCRIPTION: [place] Single View05/30/2019 9:56 am CLINICAL HISTORY: Bronchoscopy IMPRESSION: A right pneumothorax is not seen status post bronchoscopy
[2019-05-30] MEDS: VANCOMYCIN 1.25 GM in NA CHLORIDE 0.9% 250 ML IVPB SCH ×2 (11:00→15:32)
--- NOTE | 2019-05-30 17:40 | PN ---
Subjective: Mr. Sharma is doing lot better since here last night. Denies any chest pain, nausea, vomiting. He had an episode of low blood pressure down to 90 systolic and temperature elevation 101 last night when we switched his antibiotics from Zosyn to meropenem. He looks better already compare d to last night and described. Objective: Vital Signs: Blood pressure 117/68, pulse 104 which is after bronchoscopy today, and tem perature 98.7. HEENT: No JVD. No carotid bruits. Chest: Clear. Heart: Regular. Abdomen: No guarding, rebound, rigidity. Laboratory Data: White count 18,000 down from 23,000; hemoglobin down from 7.5 down to 7.1 g. Assessment: 1.Bacterial pneumonia. Bronchoscopy reveals the same. There are no signs of tumor according to Dr. Benjamin on bronchoscopy. Again, the visualization is poor because of extreme amount of pus. Dorothy nue vancomycin and meropenem currently. When able, will be discharging home with Levaquin and clinda mycin, may take a couple of more days to get him there. 2.Heavy smoker and rheumatoid patient. He does not do much preventive work except for going to pain management doctor. Sputum cultures negative so far. RVD/MODL Voice ID: [id number] Report ID: [id number]
[2019-05-30 23:52] LABS: Hematocrit 27.6 % (39.6-49.0)
[2019-05-31] MEDS: NA CHLORIDE 0.9% 1,000 ML IV SCH (01:00)
[2019-05-31] MEDS: VANCOMYCIN 1.25 GM in NA CHLORIDE 0.9% 250 ML IVPB SCH (02:28)
[2019-05-31] MEDS: HYDROCODONE/APAP 5/325 MG TAB PO PRN ×4 (05:22→23:10)
[2019-05-31 05:38] LABS: Absolute Lymphocytes (CBC) 1.7 K/uL (0.7-4.9); Basophils % 0.5 % (0-1.3); Hematocrit 27.5 % (39.6-49.0); Lymphocytes % 9.7 % (15.3-44.8); MPV 7.5 fL (7.6-11.3)
[2019-05-31 06:08] LABS: BUN Blood Urea Nitrogen 6 mg/dL (7-18); Bicarbonate 31 mmol/L (21-32); Glucose Level 96 mg/dL (74-106); Potassium 3.7 mmol/L (3.5-5.1); Sodium Level 135 mmol/L (136-145)
[2019-05-31] MEDS: PANTOPRAZOLE 40MG TABLET PO SCH ×2 (07:30→08:18)
[2019-05-31] MEDS: GABAPENTIN 400 MG CAP PO SCH ×3 (08:19→21:40)
[2019-05-31] MEDS: Meropenem 1,000 MG in NA CHLORIDE 0.9% 100 ML IV SCH ×2 (08:19→21:40)
[2019-05-31] MEDS: ENOXAPARIN 40 MG/0.4 ML SQ SCH (08:20)
[2019-05-31] MEDS: ARFORMOTEROL TARTRATE 15 MCG/2 ML VIAL.NEB NEB SCH ×2 (08:50→20:30)
--- NOTE | 2019-05-31 09:08 | P.PN ---
Subjective Date of Service: 05/31/19 Chief Complaint: Pneumonia shortness of breath Subjective: Improving (Patient is improving feels a whole lot better since admission although he complains of severe weakness and shortness of breath on mild exertion) Review of Systems General: Weakness, Malaise Respiratory: Shortness of Breath Physical Examination - Vital Signs Temperature: 97.0 F Blood Pressure: 126/70 Pulse: 104 Respirations: 17 Pulse Ox (%): 91 - Physical Exam General: Alert, In no apparent distress, Oriented x3 Respiratory: Clear to auscultation bilaterally Cardiovascular: No edema, Regular rate/rhythm, Normal S1 S2 Assessment & Plan - Problems (Diagnosis) (1) Pneumonia Current Visit: Yes Status: Acute Plan: Patient is 63 years of age admitted with a necrotizing and pneumonia of the right lower lobe is white count is declining possible anaerobic aspiration pneumonia he needs to see a dentist white count declining patient was transfused vital signs stable he remains afebrile plan for discharge tomorrow on levofloxacin and clindamycin his antibiotics will be adjusted according to sensitivities in my clinic follow-up with me next week Dc vancomycin evaluate for home O2 also fax in a prescription for Advair Qualifiers: Pneumonia type: due to unspecified organism (2) Anemia Current Visit: Yes Status: Acute Plan: Patient has normocytic anemia with normal retic count was likely hypo proliferative type denies any evidence of bleeding is ferritin count is elevated reviewed related to his underlying illness Юлия function is normal Qualifiers: Anemia type: unspecified type Qualified Code(s): D64.9 - Anemia, unspecified
--- NOTE | 2019-05-31 22:57 | PN ---
Subjective: Mr. Dempsey is doing really well. He is cranky as usual. He complains about everythin g around him. He complains about the telemetry wires and everything hooked up on him, which is imped ing his mobility. So, I am stopping his telemetry. He has been stable so far. I am stopping his IV to saline lock now. He is eating well, hydrating well and we will let him ambulate in the room at [facility]. Objective: Vital Signs: Blood pressure 117/72, pulse 118, temperature 100.9, which has worsened comp ared to last 24 to 48 hours. Chest: Clear. Heart: Regular. General: He is a cachectic gentleman, who has lost lot of weight recently since he has been sick for about 3 weeks. Laboratory Examination: White count is 17,200, down from 18,000 yesterday. Hemoglobin is up to 8.8 g, now up from 7.1 after 2 units of packed RBCs. Assessment And Plan: Severe lobar pneumonia. Continue antibiotics. Increasing fever today, slightl y concerning with that is after blood transfusion and that could be the cause of transfusion itself. I suspect clinically he is gradually improving. We will plan to discharge him on Levaquin and clind amycin once I see a white count down to normal. He also has anemia, which looks like anemia of chron ic disease. According to numbers of low iron, low TIBC, low iron saturation, high ferritin level. A fter transfusion, we will have to see how long his number stays stable and he will need an endoscopy later on outpatient basis. So far, he has refused to do so for last few years. GURDEEPD/MODL Voice ID: [id number] Report ID: [id number]
[2019-06-01 05:43] LABS: Absolute Lymphocytes (CBC) 1.6 K/uL (0.7-4.9); Basophils % 0.4 % (0-1.3); Hematocrit 28.2 % (39.6-49.0); Lymphocytes % 11.1 % (15.3-44.8); MPV 7.3 fL (7.6-11.3); RBC Red Blood Cell Count 3.35 M/uL (4.33-5.43)
[2019-06-01] MEDS: HYDROCODONE/APAP 10/325 TAB PO PRN ×4 (05:52→22:58)
[2019-06-01 06:03] LABS: BUN Blood Urea Nitrogen 6 mg/dL (7-18); Bicarbonate 32 mmol/L (21-32); Glucose Level 85 mg/dL (74-106); Sodium Level 137 mmol/L (136-145)
[2019-06-01] MEDS: PANTOPRAZOLE 40MG TABLET PO SCH (07:30)
[2019-06-01] MEDS: GABAPENTIN 400 MG CAP PO SCH ×3 (10:10→20:36)
[2019-06-01] MEDS: ENOXAPARIN 40 MG/0.4 ML SQ SCH (10:10)
[2019-06-01] MEDS: Meropenem 1,000 MG in NA CHLORIDE 0.9% 100 ML IV SCH ×2 (10:11→20:36)
[2019-06-01] MEDS: ARFORMOTEROL TARTRATE 15 MCG/2 ML VIAL.NEB NEB SCH (10:50)
--- NOTE | 2019-06-01 12:58 | P.PN ---
Subjective Date of Service: 06/01/19 Chief Complaint: Pneumonia shortness of breath Subjective: Improving (Patient is improving a 75% better since is being to the hospital still has some cough and congestion) Review of Systems General: Weakness Respiratory: Shortness of Breath Physical Examination - Vital Signs Temperature: 98.3 F Blood Pressure: 128/74 Pulse: 106 Respirations: 18 Pulse Ox (%): 98 - Physical Exam General: Alert, In no apparent distress, Oriented x3 Respiratory: Crackles/rales (Crackles at the right base) Cardiovascular: No edema, Regular rate/rhythm Assessment & Plan - Problems (Diagnosis) (1) Pneumonia Current Visit: Yes Status: Acute Plan: Patient admitted with severe necrotizing pneumonia is doing much better white count is declining the new with clindamycin and meropenem room-air sats a satisfactory will not qualify for home O2 although he is dyspnea on mild exertion vital signs stable change to her inhaled Dulera which she can go home on he will need an outpatient bronchodilator Qualifiers: Pneumonia type: due to unspecified organism (2) Anemia Current Visit: Yes Status: Acute Plan: Patient has normocytic anemia with normal retic count was likely hypo proliferative type denies any evidence of bleeding is ferritin count is elevated reviewed related to his underlying illness Юлия function is normal Qualifiers: Anemia type: unspecified type Qualified Code(s): D64.9 - Anemia, unspecified
[2019-06-01] MEDS: DULERA 200/5 (MOMETASONE/FORMOTEROL) INHALER IH SCH (20:35)
--- NOTE | 2019-06-02 01:20 | PN ---
Subjective: Mr. Dempsey is doing very well. Denies any chest pain, nausea, vomiting. He is still coughing and has short of breath, but is able to ambulate without much assistance now. Physical Examination: Vital Signs: Blood pressure 117/60, pulse is 98, temperature 98.6. HEENT: No JVD. No carotid bruits. Chest: Clear. Heart: Regular. Abdomen: No guarding. No rebound. No rigidity. [place]: [place] [address], hemoglobin 9, hematocrit 28, platelets 463,000. Assessment: Major pneumonia. Plan: Continue antibiotics IV for couple of more days and send him home on Levaquin, clindamycin p.o . Currently stable. With the extensiveness of the pneumonia, he is kept in hospital longer. Also w meliton count is not back to normal yet. SHANNAN/MODL Voice ID: [id number] Report ID: [id number]
[2019-06-02] MEDS: ALPRAZOLAM 0.25 MG TABLET PO PRN ×2 (04:08→21:14)
[2019-06-02] MEDS: HYDROCODONE/APAP 10/325 TAB PO PRN ×4 (05:06→23:40)
[2019-06-02 06:15] LABS: BUN Blood Urea Nitrogen 7 mg/dL (7-18); Bicarbonate 33 mmol/L (21-32); Glucose Level 100 mg/dL (74-106); Potassium 3.6 mmol/L (3.5-5.1); Sodium Level 136 mmol/L (136-145)
[2019-06-02 06:28] LABS: Absolute Lymphocytes (CBC) 1.5 K/uL (0.7-4.9); Basophils % 0.4 % (0-1.3); Hematocrit 25.9 % (39.6-49.0); Lymphocytes % 11.7 % (15.3-44.8); MPV 7.8 fL (7.6-11.3); RBC Red Blood Cell Count 3.08 M/uL (4.33-5.43)
[2019-06-02] MEDS: PANTOPRAZOLE 40MG TABLET PO SCH (08:22)
[2019-06-02] MEDS: DULERA 200/5 (MOMETASONE/FORMOTEROL) INHALER IH SCH ×2 (08:22→21:12)
[2019-06-02] MEDS: GABAPENTIN 400 MG CAP PO SCH ×3 (08:22→21:14)
[2019-06-02] MEDS: Meropenem 1,000 MG in NA CHLORIDE 0.9% 100 ML IV SCH (08:23)
[2019-06-02] MEDS: ENOXAPARIN 40 MG/0.4 ML SQ SCH (08:23)
[2019-06-02 11:29] LABS: Anisocytosis 1+; Blood Morphology Comment NOTED (NOT SEEN); Hypochromasia 1+; Platelet Estimate ADEQ; Urine White Blood Cell Casts OK
--- NOTE | 2019-06-02 11:32 | PN ---
Subjective: Mr. Dempsey is doing lot better. He is still coughing up sputum, but a lot lesser. Th is will get short of breath while eating food. Physical Examination: Vital Signs: Blood pressure 118/75, pulse 101, temperature 98.4. HEENT: No JVD. No carotid bruits. Chest: Left side clear. Right side has diffuse rales. Coarse crackles. Abdomen: No guarding, no rebound, no rigidity. Laboratory Data: White count is down to 12,000, hemoglobin 8.4, slightly lower than yesterday. Assessment And Plan: Extensive pneumonia. Dr. Vidal is planning to keep him on Augmentin and doxy cycline for home. This was provided coverage for anaerobic and methicillin-resistant Staphylococcus aureus, which he does not have. So far, oxygen requirement, will depend on oxygen saturations tomorr ow. SHANNAN/MODArianna Voice ID: [id number] Report ID: [id number]
[2019-06-02] MEDS: AMOX/K CLAV 875 MG TAB PO SCH (21:13)
[2019-06-02] MEDS: DOXYCYCLINE 100 MG CAP PO SCH (21:14)
[2019-06-03] MEDS: HYDROCODONE/APAP 10/325 TAB PO PRN ×4 (05:13→22:57)
[2019-06-03 06:01] LABS: Absolute Lymphocytes (CBC) 1.4 K/uL (0.7-4.9); Basophils % 0.8 % (0-1.3); Hematocrit 26.2 % (39.6-49.0); MPV 7.5 fL (7.6-11.3); RBC Red Blood Cell Count 3.18 M/uL (4.33-5.43)
[2019-06-03 07:06] LABS: BUN Blood Urea Nitrogen 7 mg/dL (7-18); Bicarbonate 33 mmol/L (21-32); Glucose Level 96 mg/dL (74-106); Potassium 4.1 mmol/L (3.5-5.1); Sodium Level 136 mmol/L (136-145)
[2019-06-03 07:47] LABS: Albumin 1.2 g/dL (3.4-5.0); Bilirubin Direct 0.1 mg/dL (0-0.2); Bilirubin Total 0.2 mg/dL (0.2-1.0); Protein, Total 6.8 g/dL (6.4-8.2)
[2019-06-03] MEDS: ENOXAPARIN 40 MG/0.4 ML SQ SCH (09:24)
[2019-06-03] MEDS: AMOX/K CLAV 875 MG TAB PO SCH ×2 (09:24→21:22)
[2019-06-03] MEDS: GABAPENTIN 400 MG CAP PO SCH ×3 (09:24→21:21)
[2019-06-03] MEDS: PANTOPRAZOLE 40MG TABLET PO SCH (09:24)
[2019-06-03] MEDS: DOXYCYCLINE 100 MG CAP PO SCH ×2 (09:24→21:21)
[2019-06-03] MEDS: DULERA 200/5 (MOMETASONE/FORMOTEROL) INHALER IH SCH ×2 (09:25→21:21)
--- NOTE | 2019-06-03 11:14 | P.PN ---
Subjective Date of Service: 06/03/19 Chief Complaint: Pneumonia shortness of breath [facility] HIS LABS ARE BETTER, HE IS STILL VERY FATIGUED AND GETS DYSPNEIC WHILE TALKING TO ME. Review of Systems 10-point ROS is otherwise unremarkable General: Weakness, Malaise Respiratory: Shortness of Breath Physical Examination - Vital Signs Temperature: 97.6 F Blood Pressure: 106/60 Pulse: 95 Respirations: 18 Pulse Ox (%): 95 - Physical Exam General: Mild distress, Moderate distress HEENT: Atraumatic, PERRLA, EOMI Neck: Supple, JVD not distended Respiratory: Diminished, Crackles/rales (R SIDE WHOLE LUNG HAS DIFFUSE COARSE RALES. ) Cardiovascular: Regular rate/rhythm, Normal S1 S2 Gastrointestinal: Normal bowel sounds, No tenderness Musculoskeletal: No tenderness Integumentary: No rashes Neurological: Normal speech, Normal tone, Normal affect Lymphatics: No axilla or inguinal lymphadenopathy - Studies Medications List Reviewed: Yes Assessment And Plan - Current Problems (Diagnosis) (1) Anemia Current Visit: Yes Status: Acute Plan: THIS IS NEW FOR HIM. HG WAS NORMAL LAST YEAR. HE HAS ANEMIA OF CHRONIC DISEASE. LOW IRON, LOW TIBC, VERY HIGH FERRITIN. CHECK SONYA AND RF. GI ANSARI WHEN IS STABLE. Qualifiers: Anemia type: unspecified type Qualified Code(s): D64.9 - Anemia, unspecified (2) Pneumonia Current Visit: Yes Status: Acute Plan: IV ABX VANCOMYCIN AND ZOSYN. IT IS A SEVERE PNEUMONIA AND SO NEED DUAL COVERAGE UNTIL ANY ANSWER FROM SPUTUM CULTURE. NEBS. DC STEROIDS. DR. SEGURA ON CASE. R UPPER AND LOWER LOBE CAVITARY PNEUMONIA. HOLD ONE MORE DAY AT [facility]. CT ANGIO ORDER GIVEN. HE IS VERY FATIGUED AND STAYS DYSPNEIC WITH ANY ACTIVITY LIKE TALKING. HE MAY DO FINE WITH ORAL ANTIBIOTICS BUT NEED TO REASSURE. Qualifiers: Pneumonia type: due to unspecified organism
--- NOTE | 2019-06-03 12:10 | RAD REPORT ---
EXAM DESCRIPTION: CT - Chest For Pe Angio - 06/03/2019 11:52 am CLINICAL HISTORY: cough COMPARISON: May 27, 2019 TECHNIQUE: Dynamically enhanced axial 3 mm thick images of the chest were obtained during administra tion of <100> mL Isovue 370 IV contrast. Coronal and oblique reconstruction images were generated and reviewed. Exam utilizes a protocol for optimal evaluation of pulmonary arterial tree. Maximum intensity projections 3D imaging was utilized All CT scans are performed using dose optimization technique as appropriate and may include automated exposure control or mA/KV adjustment according to patient size. FINDINGS: A pulmonary embolus is not seen. A thoracic aortic aneurysm is not noted. A minimal right pleural effusion. A pericardial effusion is not seen. Posterior right upper lobe consolidation mildly increased in size. Right lower lobe consolidation mil dly decreased in size. Mild progression in additional right lung opacities. Occlusion of a right lowe r lobe bronchus Mild mediastinal and hilar lymphadenopathy. Calcified hilar and calcified mediastinal lymph nodes. IMPRESSION: Negative for a pulmonary embolism. Mild increase in the size of the right upper lobe consolidation. Mild decrease in size of the right l ower lobe consolidation
[2019-06-03] MEDS: ALPRAZOLAM 0.25 MG TABLET PO PRN (21:20)
[2019-06-04 04:16] LABS: Absolute Lymphocytes (CBC) 1.7 K/uL (0.7-4.9); Basophils % 0.4 % (0-1.3); Hematocrit 26.3 % (39.6-49.0); Lymphocytes % 14.9 % (15.3-44.8); RBC Red Blood Cell Count 3.18 M/uL (4.33-5.43)
[2019-06-04 04:38] LABS: BUN Blood Urea Nitrogen 7 mg/dL (7-18); Bicarbonate 35 mmol/L (21-32); Glucose Level 110 mg/dL (74-106); Potassium 3.7 mmol/L (3.5-5.1); Sodium Level 138 mmol/L (136-145)
[2019-06-04] MEDS: HYDROCODONE/APAP 10/325 TAB PO PRN ×2 (04:48→10:58)
[2019-06-04] MEDS: GABAPENTIN 400 MG CAP PO SCH ×2 (08:23→13:14)
[2019-06-04] MEDS: DOXYCYCLINE 100 MG CAP PO SCH (08:23)
[2019-06-04] MEDS: AMOX/K CLAV 875 MG TAB PO SCH (08:23)
[2019-06-04] MEDS: PANTOPRAZOLE 40MG TABLET PO SCH (08:24)
[2019-06-04] MEDS: ENOXAPARIN 40 MG/0.4 ML SQ SCH (08:24)
[2019-06-04] MEDS: DULERA 200/5 (MOMETASONE/FORMOTEROL) INHALER IH SCH (08:29)
--- NOTE | 2019-06-04 08:51 | P.PN ---
Subjective Date of Service: 06/04/19 Chief Complaint: Pneumonia shortness of breath Subjective: Improving (Patient is improving still has dyspnea on exertion low saturation) Review of Systems Unremarkable General: Weakness Respiratory: Shortness of Breath Physical Examination - Vital Signs Temperature: 98.6 F Blood Pressure: 118/59 Pulse: 100 Respirations: 18 Pulse Ox (%): 95 - Physical Exam General: Alert, Oriented x3, Mild distress Respiratory: Expiratory wheezes Cardiovascular: No edema, Normal S1 S2 - Studies Medications List Reviewed: Yes Assessment & Plan - Problems (Diagnosis) (1) Pneumonia Current Visit: Yes Status: Acute Plan: Patient is 63 years of age admitted with chronic necrotizing right lower lobe pneumonia is clinically improving white count declining cultures all negative bronchoscopy shows neutrophilic predominance no evidence of cancer Qualifiers: Pneumonia type: due to unspecified organism (2) Anemia Current Visit: Yes Status: Acute Plan: Anemia stable Qualifiers: Anemia type: unspecified type Qualified Code(s): D64.9 - Anemia, unspecified (3) COPD (chronic obstructive pulmonary disease) Current Visit: Yes Status: Acute Plan: I strongly suspect that patient has underlying COPD he is an active smoker currently stable will need to be evaluated as an outpatient with pulmonary function testing the also need bronchodilators at home Qualifiers: Chronic bronchitis type: unspecified
[2019-06-04 09:03] VITALS: O2SAT 2
[2019-06-04 10:41] LABS: Arterial Blood Carboxyhemoglob 1.2 % (0-1.5); Blood Gas Oxyhemoglobin 90.4 % (94-97); Blood O2 Saturation 92.2 % (92-98.5)
[2019-06-04 13:37] VITALS: BP 117/65; TEMP 99.2
--- NOTE | 2019-06-04 18:08 | P.DS ---
Admission Date: 05/27/19 Discharge Date: 06/04/19 Disposition: ROUTINE DISCHARGE Discharge Condition: FAIR Reason for Admission: Pneumonia shortness of breath - Problems (1) Anemia Status: Acute Qualifiers: Anemia type: unspecified type Qualified Code(s): D64.9 - Anemia, unspecified (2) Pneumonia Status: Acute Qualifiers: Pneumonia type: due to unspecified organism Brief History of Present Illness: MR. SMITH IS A CHRONIC PAIN PATIENT WHO GOES TO PAIN MD REGULARLY, COMES TO HOSPITAL HE IS SICK FOR 3 WEEKS. HE HAS BEEN COUGHING, DYSPNEIC AND WHEN CAME TO ER HIS WBC IS 25K. HE HAS MULTIFOCAL LOBAR PNEUMONIA. HE DID NOT WANT TO COME TO ANYONE BUT HIS INSISTED. HE IS NOW IN ICU. Hospital Course: CESAR HAD SEVERE PNEUMONIA ON R SIDE. HE RECEIVED IV MERREM AND THAT HELPED. HE IS SENT HOME ON AUGMENTIN AND DOXYCYCLIN PER. DR LONDON. HE HAS SEVERE COPD AND IMMUNOSUPPRESSED STATUS FROM BEING ON HUMIRA. HE TOOK 7 DAYS TO IMPROVE. HE HAD BRONCHOSCOPY TO SEE IF HAS ANY CANCER AND NONE WAS VISIBLE. HE IS STABLE WITH FRAIL CONDITION. Vital Signs/Physical Exam: Temp Pulse Resp BP Pulse Ox 99.2 F 108 H 18 117/65 94 06/04/19 12:00 06/04/19 12:00 06/04/19 12:00 06/04/19 12:00 06/04/19 12:00 Laboratory Data at Discharge: WBC 11.3 K/uL (4.3-10.9) H 06/04/19 03:39 Hgb 8.5 g/dL (13.6-17.9) L 06/04/19 03:39 Hct 26.3 % (39.6-49.0) L 06/04/19 03:39 Plt Count 441 K/uL (152-406) H 06/04/19 03:39 PT 19.1 SECONDS (9.5-12.5) H 05/27/19 17:35 INR 1.65 05/27/19 17:35 APTT 27.7 SECONDS (24.3-36.9) 05/27/19 17:35 Sodium 138 mmol/L (136-145) 06/04/19 03:39 Potassium 3.7 mmol/L (3.5-5.1) 06/04/19 03:39 BUN 7 mg/dL (7-18) 06/04/19 03:39 Creatinine 0.48 mg/dL (0.55-1.3) L 06/04/19 03:39 Glucose 110 mg/dL (74-106) H 06/04/19 03:39 Magnesium 2.2 mg/dL (1.8-2.4) 05/27/19 17:35 Total Bilirubin 0.2 mg/dL (0.2-1.0) 06/03/19 05:48 AST 20 U/L (15-37) D 06/03/19 05:48 ALT 53 U/L (12-78) D 06/03/19 05:48 Alkaline Phosphatase 169 U/L (45-117) H 06/03/19 05:48 Troponin I < 0.02 ng/mL (0.0-0.045) 05/28/19 00:36 Amylase 30 U/L (25-115) 05/27/19 17:35 Lipase 101 U/L (73-393) 05/27/19 17:35 Home Medications: Adalimumab [Humira 40 MG/0.8 ML*] 40 mg SQ SEECOM 05/27/19 Gabapentin [Neurontin] 800 mg PO TID 05/27/19 Hydrocodone Bit/Acetaminophen [Hydrocodon-Acetaminophn 10-325] 1 each PO QIDP PRN 05/27/19 Pravastatin Sodium [Pravachol] 40 mg PO BEDTIME 05/27/19 lisinopriL [Lisinopril] 10 mg PO DAILY 05/27/19 Fluticasone/Salmeterol [Advair 250-50 Diskus] 1 each IH BID 30 Days #60 blst.w.dev 05/31/19 Amox/Clavulanate [Augmentin 875-125 Tab*] 875 mg PO BID #28 tab 06/04/19 Doxycycline Hyclate 100 mg PO BID #28 tablet 06/04/19 New Medications: Amox/Clavulanate [Augmentin 875-125 Tab*] 875 mg PO BID #28 tab Doxycycline Hyclate 100 mg PO BID #28 tablet Fluticasone/Salmeterol [Advair 250-50 Diskus] 1 each IH BID 30 Days #60 blst.w.dev Diet: Regular Activity: Ad jose Followup: Sourav,Akil K, MD [ACTIVE - CAN ADMIT] - Joel Manzano MD [Primary Care Provider] -
== END 2019-06-04 14:07 | disposition home or self-care (01) | DRG 871 ==
LOC: ER 17:24 → ERHOLD 18:13 → 3RD-ICU 19:54 → 2ND 05-28 09:49 → 4TH 05-31 17:29
PROVIDERS: ADMIT Internal Medicine; ATTEND Internal Medicine
PROC: 0BD68ZX Extraction of Right Lower Lobe Bronchus, Via Natural or Artificial Opening Endoscopic, Diagnostic (ICD-10-PCS; 2019-05-30)
PROC: 0B9F8ZX Drainage of Right Lower Lung Lobe, Via Natural or Artificial Opening Endoscopic, Diagnostic (ICD-10-PCS; principal; 2019-05-30 08:00)
DX: A41.9 Sepsis, unspecified organism (principal); J18.9 Pneumonia, unspecified organism; J44.0 Chronic obstructive pulmonary disease with (acute) lower respiratory infection; R64 Cachexia; D64.9 Anemia, unspecified; Z68.26 Body mass index [BMI] 26.0-26.9, adult; R94.5 Abnormal results of liver function studies; R09.02 Hypoxemia; I10 Essential (primary) hypertension; E78.00 Pure hypercholesterolemia, unspecified; M06.9 Rheumatoid arthritis, unspecified; Z96.643 Presence of artificial hip joint, bilateral; Z87.891 Personal history of nicotine dependence
CPT/HCPCS: 36415; 36430; 71045; 71046; 71260; 71275; 74177; 76000; 76705; 80048; 80076; 80202; 81003; 81015; 82140; 82150; 82550; 82553; 82607; 82728; 82805; 82947; 83540; 83605; 83690; 83735; 83880; 84145; 84466; 84484; 85014; 85018; 85025; 85027; 85044; 85610; 85730; 86850; 86900; 86901; 87015; 87040; 87070; 87116; 87205; 87206; 87804; 88108; 88305; 88312; 93005; 94640; 94760; 96365; 96366; 96367; 96368; 96375; 97112; 97116; 97161; 97530; 99285; C9113; J0171; J0692; J1650; J1720; J2370; J2543; J2704; J3010; J3370; J3411; J7030; J7120; J7605; J7606; P9016; Q9967

== ENCOUNTER 2020-08-31 10:36 | Emergency (ER) | payer OTHER ==
[2020-08-31] MEDS ORDERED: HYDROCODONE/APAP 5/325 MG TAB ONE (11:22)
--- NOTE | 2020-08-31 12:08 | RAD REPORT ---
EXAM DESCRIPTION: RAD - Wrist Right 3 View - 08/31/2020 11:53 am CLINICAL HISTORY: Right wrist pain status post injury FINDINGS: No acute fracture or dislocation is seen. If the patient continues to have symptoms to sug gest an occult fracture then a followup plain film series in 7 days would be recommended.
--- NOTE | 2020-08-31 12:12 | RAD REPORT ---
EXAM DESCRIPTION: RAD - Hip Right 2 View - 08/31/2020 11:53 am CLINICAL HISTORY: Right hip pain FINDINGS: Right hip arthroplasty has been performed. No evidence of loosening of prosthesis Horizontal lucency is present within the lateral subtrochanteric right femur. I am uncertain if this represents a nondisplaced fracture. CT could obtained for further evaluation
--- NOTE | 2020-08-31 13:13 | RAD REPORT ---
EXAM DESCRIPTION: CT - Hip Right Wo Con - 08/31/2020 12:52 pm CLINICAL HISTORY: Right hip pain status post fall COMPARISON: X-rays on the same date. TECHNIQUE: Computed axial tomography of the right hip were obtained. Coronal and sagittal reconstruc tion was performed. All CT scans are performed using dose optimization technique as appropriate and may include automated exposure control or mA/KV adjustment according to patient size. FINDINGS: A right hip arthroplasty. No evidence of loosening of prosthesis Minimally displaced fracture involves the anterolateral aspect of the subtrochanteric right femur. No dislocation The surrounding muscles of the right hip are normal size and density. Moderate right inguinal hernia IMPRESSION: Minimally displaced fracture involves the anterolateral aspect of the subtrochanteric ri ght femur.
--- NOTE | 2020-08-31 13:43 | EDPHYS ---
Physician Documentation [facility] Name: Vikas Sharma Age: 64 yrs Sex: Male : 1955 Arrival Date: 08/31/2020 Time: 10:41 Bed 6 Private MD: Joel Manzano V ED Physician Sergio Sabillon HPI: 08/31 16:04 This 64 yrs old Male presents to ER via Wheelchair with complaints of Fall kb Injury, Hip Pain. 16:04 Details of fall: The patient fell from an upright position, while standing. Onset: The kb symptoms/episode began/occurred yesterday, at 01:30. Associated injuries: The patient sustained right hip, painful injury. Severity of symptoms: At their worst the symptoms were mild, moderate, in the emergency department the symptoms are unchanged. The patient has not experienced similar symptoms in the past. The patient has not recently seen a physician. Pt states he dropped something and when he leaved down to pick it up he fell. Hit right eye, right wrist and right hip. Only c/o pain to right hip, states everything else is ok, but he is sure he fractured his hip again. Historical: - Allergies: 10:58 No Known Allergies; hb - Home Meds: 10:58 Lisinopril Oral [Active]; hb - PMHx: 10:58 High Cholesterol; Hypertension; Psoriatic Arthritis; hb - PSHx: 10:58 Hip Replacement - Bilat; Shoulder - Right; Knee - Right; Hernia repair; hb - Immunization history:: Adult Immunizations up to date. - Social history:: Smoking status: Patient denies any tobacco usage or history of. ROS: 15:59 Constitutional: Negative for fever, chills, and weight loss. kb 15:59 Eyes: Positive for swelling, of the right upper eyelid and right lower eyelid, ecchymosis, contusion. 15:59 MS/extremity: Positive for pain, of the right wrist and lateral aspect of right thigh. 15:59 Skin: Positive for abrasion(s), ecchymosis, of the right eye. Exam: 16:01 Constitutional: This is a well developed, well nourished patient who is awake, alert, kb and in no acute distress. ENT: Moist Mucous membranes Cardiovascular: Regular rate and rhythm with a normal S1 and S2. No gallops, murmurs, or rubs. No pulse deficits. Respiratory: Respirations even and unlabored. No increased work of breathing, no retractions or nasal flaring. Abdomen/GI: Soft, non-tender. No distention Neuro: Awake and alert, GCS 15, oriented to person, place, time, and situation. Moves all extremities. Normal gait. Psych: Awake, alert, with orientation to person, place and time. Behavior, mood, and affect are within normal limits. 16:01 Eyes: Periorbital structures: swelling, contusion, ecchymosis, Pupils: equal, round, and reactive to light and accomodation, Extraocular movements: intact throughout, Conjunctiva: subconjunctival hemorrhage(s), seen in the right eye, at 3 o'clock. 16:01 Musculoskeletal/extremity: Extremities: grossly normal except: noted in the right wrist: pain, swelling, noted in the right hip: pain, tenderness, ROM: intact in all extremities, Circulation is intact in all extremities. Sensation intact. Weight bearing: can bear weight with assistance only, uses walker. 16:01 Skin: injury, abrasion(s), small abrasion noted, of the right supraorbital ridge, contusion(s), that are superficial, of the right eye. Vital Signs: 10:57 BP 121 / 77; Pulse 105; Resp 16; Temp 97.8(TE); Pulse Ox 99% on R/A; Pain 8/10; hb 12:02 BP 104 / 64; Pulse 94; Resp 18; Pulse Ox 97% on R/A; em 13:20 BP 112 / 71; Pulse 87; Resp 17; Pulse Ox 95% on R/A; Pain 3/10; em Mcloud Coma Score: 11:00 Eye Response: spontaneous(4). Verbal Response: oriented(5). Motor Response: obeys em commands(6). Total: 15. 12:02 Eye Response: spontaneous(4). Verbal Response: oriented(5). Motor Response: obeys em commands(6). Total: 15. Trauma Score (Adult): 11:00 Eye Response: spontaneous(1); Verbal Response: oriented(1); Motor Response: obeys em commands(2); Systolic BP: > 89 mm Hg(4); Respiratory Rate: 10 to 29 per min(4); Fernanda Score: 15; Trauma Score: 12 12:02 Eye Response: spontaneous(1); Verbal Response: oriented(1); Motor Response: obeys em commands(2); Systolic BP: > 89 mm Hg(4); Respiratory Rate: 10 to 29 per min(4); Fernanda Score: 15; Trauma Score: 12 MDM: 10:49 Patient medically screened. kb 11:05 ED course: Pt only wants hip evaluated. States wrist is fine, but agrees to have x-ray. kb Refuses CT scan . 13:34 Physician consultation: Jatin Machado MD was called at 13:15, no answer, message sent. kb 13:38 ED course: Pt wants to go home. States "I have a walker at home, I'm not going to hurt kb myself. I will call Dr Machado tomorrow. This isn't something that is going to be fixed today so I will just go stircridy in here." Educated on risks of leaving AMA. Pt states he still wants to go . 15:53 Data reviewed: vital signs, nurses notes. Data interpreted: Pulse oximetry: on room air kb is 95 %. Interpretation: normal. 08/31 11:00 Order name: Hip Right 2 View XRAY; Complete Time: 12:14 kb 08/31 11:00 Order name: Wrist Right 3 View XRAY; Complete Time: 12:14 kb 08/31 12:38 Order name: Hip Right Wo Con; Complete Time: 13:13 EDMS Administered Medications: 11:06 Drug: Girard (HYDROcodone-acetaminophen) 5 mg-325 mg 1 tabs Route: PO; em 13:20 Follow up: Response: No adverse reaction em Disposition: 08/31/20 13:42 Patient has left against medical advice. Impression: Displaced fracture subtrochanteric right femur. - Patients states they are going to Home. - Condition is Stable. - Prescriptions for Tramadol 50 mg Oral Tablet - take 1 tablet by ORAL route every 8 hours as needed; 12 tablet. Follow up: Emergency Department; When: As needed; Reason: Worsening of condition. Follow up: Jatin Machado MD; When: Tomorrow; Reason: Recheck today's complaints, Re-evaluation by your physician. - Problem is new. - Symptoms are unchanged. Addendum: 09/04/2020 06:57 Co-signature as Attending Physician, Sergio Sabillon MD. m a2 Signatures: Dispatcher [employer] EDHI Veronica Valles, SHELDON ODOM-Gilles Zafar, RN RN Michelle Camacho, RN RN Sergio Sabillon MD MD ma2 Corrections: (The following items were deleted from the chart) 08/31 12:38 12:23 CT RIGHT HIP WO CONTRAST ordered. EDHI EDHI 13:42 13:42 08/31/2020 13:42 Patients has left against medical advice. Patient states they kb are going to Home. Condition is Stable. Follow up: Emergency Department; When: As needed; Reason: Worsening of condition. Follow up: Jatin Machado; When: Tomorrow; Reason: Recheck today's complaints, Re-evaluation by your physician. Problem is new. Symptoms are unchanged. kb 13:55 13:42 08/31/2020 13:42 Patients has left against medical advice. Impression: Displaced em fracture subtrochanteric right femur. Patient states they are going to Home. Condition is Stable. Prescriptions for Tramadol 50 mg Oral Tablet - take 1 tablet by ORAL route every 8 hours as needed; 12 tabletFollow up: Emergency Department; When: As needed; Reason: Worsening of condition. Follow up: Jatin Machado; When: Tomorrow; Reason: Recheck today's complaints, Re-evaluation by your physician. Problem is new. Symptoms are unchanged. kb
--- NOTE | 2020-08-31 13:43 | ER ---
Nurse's Notes [facility] Name: Vikas Sharma Age: 64 yrs Sex: Male : 1955 Arrival Date: 08/31/2020 Time: 10:41 Bed 6 Private MD: Joel Manzano V Diagnosis: Displaced fracture subtrochanteric right femur Presentation: 08/31 10:56 Chief complaint: Right hip and right ankle pain after fall from standing 2 night ago. hb Coronavirus screen: At this time, the client does not indicate any symptoms associated with coronavirus-19. Ebola Screen: No symptoms or risks identified at this time. Initial Sepsis Screen: Does the patient meet any 2 criteria? No. Patient's initial sepsis screen is negative. Does the patient have a suspected source of infection? No. Patient's initial sepsis screen is negative. Risk Assessment: Do you want to hurt yourself or someone else? Patient reports no desire to harm self or others. Onset of symptoms was August 29, 2020. 10:56 Method Of Arrival: Wheelchair hb 10:56 Acuity: DAPHNE 3 hb Historical: - Allergies: 10:58 No Known Allergies; hb - Home Meds: 10:58 Lisinopril Oral [Active]; hb - PMHx: 10:58 High Cholesterol; Hypertension; Psoriatic Arthritis; hb - PSHx: 10:58 Hip Replacement - Bilat; Shoulder - Right; Knee - Right; Hernia repair; hb - Immunization history:: Adult Immunizations up to date. - Social history:: Smoking status: Patient denies any tobacco usage or history of. Screenin:00 Abuse screen: Denies threats or abuse. Nutritional screening: No deficits noted. em Tuberculosis screening: No symptoms or risk factors identified. Fall Risk None identified. Primary Survey: 11:00 NO uncontrolled hemorrhage observed. A: The patient is alert. Airway: patent. em Breathing/Chest: Respiratory pattern: regular, Respiratory effort: spontaneous. Circulation: Skin color: pink. Disability Alert. Exposure/Environment: There is no evidence of uncontrolled external bleeding. Assessment: 11:00 General: Appears in no apparent distress. comfortable, Behavior is calm, cooperative, em appropriate for age. Pain: Complains of pain in right hip, dorsal aspect of right wrist and palmar aspect of right wrist Pain currently is 8 out of 10 on a pain scale. Pain began 2-3 days ago. 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 Cardiovascular: Capillary refill < 3 seconds Patient's skin is warm and dry. Respiratory: Airway is patent Respiratory effort is even, unlabored, Respiratory pattern is regular, symmetrical. GI: Patient currently denies nausea, vomiting. Derm: Skin is intact, is fragile, is thin, Skin is pink, warm \T\ dry. Musculoskeletal: Capillary refill < 3 seconds, Range of motion: intact in all extremities, Swelling present in dorsal aspect of right wrist and palmar aspect of right wrist. 11:22 Reassessment: x-ray at bedside. em 12:20 Reassessment: Patient appears in no apparent distress at this time. Patient and/or em family updated on plan of care and expected duration. Pain level reassessed. Patient is alert, oriented x 3, equal unlabored respirations, skin warm/dry/pink. 13:15 Reassessment: pt states he is ready to go, reports that he is ready to go and no one is em going to do anything for him today, Dr. Machado has not called back and spoke with provider, provider notified. Vital Signs: 10:57 BP 121 / 77; Pulse 105; Resp 16; Temp 97.8(TE); Pulse Ox 99% on R/A; Pain 8/10; hb 12:02 BP 104 / 64; Pulse 94; Resp 18; Pulse Ox 97% on R/A; em 13:20 BP 112 / 71; Pulse 87; Resp 17; Pulse Ox 95% on R/A; Pain 3/10; em Fernanda Coma Score: 11:00 Eye Response: spontaneous(4). Verbal Response: oriented(5). Motor Response: obeys em commands(6). Total: 15. 12:02 Eye Response: spontaneous(4). Verbal Response: oriented(5). Motor Response: obeys em commands(6). Total: 15. Trauma Score (Adult): 11:00 Eye Response: spontaneous(1); Verbal Response: oriented(1); Motor Response: obeys em commands(2); Systolic BP: > 89 mm Hg(4); Respiratory Rate: 10 to 29 per min(4); Fernanda Score: 15; Trauma Score: 12 12:02 Eye Response: spontaneous(1); Verbal Response: oriented(1); Motor Response: obeys em commands(2); Systolic BP: > 89 mm Hg(4); Respiratory Rate: 10 to 29 per min(4); Fernanda Score: 15; Trauma Score: 12 ED Course: 10:41 Patient arrived in ED. mr 10:41 Joel Manzano MD is Private Physician. mr 10:49 Veronica Valles FNP-C [facility]. kb 10:49 Sergio Sabillon MD is Attending Physician. kb 10:51 Gilles Higgins, RN is Primary Nurse. em 10:57 Triage completed. hb 10:58 Arm band placed on. hb 11:00 Patient has correct armband on for positive identification. Bed in low position. Call em light in reach. Adult w/ patient. Pulse ox on. NIBP on. 11:00 Patient maintains SpO2 saturation greater than 95% on room air. em 11:53 Hip Right 2 View XRAY In Process Unspecified. EDMS 11:53 Wrist Right 3 View XRAY In Process Unspecified. EDMS 12:52 Hip Right Wo Con In Process Unspecified. EDMS 13:27 Gilles Higgins, RN is Primary Nurse. em 13:42 Jatin Machado MD is Referral Physician. kb 13:53 No provider procedures requiring assistance completed. Patient did not have IV access em during this emergency room visit. Administered Medications: 11:06 Drug: Edgard (HYDROcodone-acetaminophen) 5 mg-325 mg 1 tabs Route: PO; em 13:20 Follow up: Response: No adverse reaction em Outcome: 13:53 AMA AMA form signed em 13:53 Condition: stable 13:53 Instructed on the need for admit, Demonstrated understanding of instructions, follow-up care, medications, Prescriptions given X 1. 13:55 Patient left the ED. em Signatures: Dispatcher [employer] EDMS Veronica Valles FNP-C FNP-Ckb Leeann Tsai mr Gilles Higgins, RN RN em Michelle Camacho RN RN
[2020-08-31 14:23] VITALS: TEMP 97.8
[2020-08-31 14:25] VITALS: BP 112/71; O2SAT 95
== END 2020-08-31 13:55 | disposition left against medical advice (07) ==
LOC: ER 10:36
DX: S72.21XA Displaced subtrochanteric fracture of right femur, initial encounter for closed fracture (principal); M25.531 Pain in right wrist; W18.39XA Other fall on same level, initial encounter; Y93.89 Activity, other specified; I10 Essential (primary) hypertension; Z96.643 Presence of artificial hip joint, bilateral
CPT/HCPCS: 73700; 99284

== ENCOUNTER 2020-11-28 14:54 | Emergency (ER) | payer OTHER ==
--- OUTSIDE RECORDS SUMMARY | 2020-11-28 14:57 | XMS REPORT | Continuity of Care Document ---
:1955 Author Organization [facility] t Address [address] [place] [address] [address] [place] [address] Care Team Providers Name Role Phone Melissa Kimball Attending Clinician Doctor Unassigned, Name Attending Clinician Unavailable Problems This patient has no known problems. Allergies, Adverse Reactions, Alerts This patient has no known allergies or adverse reactions. Medications This patient has no known medications. Procedures This patient has no known procedures. Encounters Start End Encounter Admission Attending Care Care Encounter Source Date/Time Date/Time Type Type Clinicians Facility Department ID 2020-09-04 2020-09-04 Telephone MORALES Thompson [id number] 00:00:00 00:00:00 [facility] [id number] Surgical [id number] Specialti [id number] [address] 2020-09-04 2020-09-04 Orders Doctor MICHELLE [id number] 00:00:00 00:00:00 Only Unassigned, SHEL[place] [id number] [place] [facility] [id number] 2020-09-03 2020-09-03 Telephone MORALES Thompson [id number] 00:00:00 00:00:00 [facility] [id number] Surgical [id number] Specialti [id number] [address] 2020-09-01 2020-09-01 Office MORALES Thompson [id number] 15:08:01 15:23:01 Visit [facility] [id number] Surgical [id number] Specialti [id number] [address] 2020-09-01 2020-09-01 [facility] [id number] 00:00:00 00:00:00 [facility] [id number] Surgical [id number] Specialti [id number] [address] 2020-09-01 2020-09-01 [facility] [id number] 00:00:00 00:00:00 [facility] [id number] Surgical [id number] Specialti [id number] [address] Results This patient has no known results.
[2020-11-28 15:13] LABS: Absolute Lymphocytes (CBC) 1.7 K/uL (0.7-4.9); Basophils % 0.4 % (0-1.3); Hematocrit 33.7 % (39.6-49.0); Lymphocytes % 25.8 % (15.3-44.8); RBC Red Blood Cell Count 3.85 M/uL (4.33-5.43)
--- NOTE | 2020-11-28 15:19 | RAD REPORT ---
EXAM DESCRIPTION: CT - Ct Stroke Brain Wo Cont - 11/28/2020 3:06 pm CLINICAL HISTORY: Slurred speech COMPARISON: none TECHNIQUE: Computed axial tomography of the head was obtained. All CT scans are performed using dose optimization technique as appropriate and may include automated exposure control or mA/KV adjustment according to patient size. FINDINGS: An intracranial bleed is not seen . The ventricles are normal in caliber. No extra-axial fluid collection is noted. Fluid within the sinuses/ mastoids is not seen. IMPRESSION: No acute intracranial abnormality is seen. If patient's symptoms persist MRI of the bra in would be recommended. Raheem of the emergency room was notified at 3:10 p.m. November 28, 2020
[2020-11-28 15:20] LABS: Protime INR 1.02
[2020-11-28 15:28] LABS: BUN Blood Urea Nitrogen 22 mg/dL (7-18); Bicarbonate 33 mmol/L (21-32); Glucose Level 118 mg/dL (74-106); Potassium 3.6 mmol/L (3.5-5.1); Sodium Level 142 mmol/L (136-145)
--- NOTE | 2020-11-28 15:33 | RAD REPORT ---
EXAM DESCRIPTION: [place] Single View11/28/2020 3:18 pm CLINICAL HISTORY: CVA COMPARISON: 2019 FINDINGS: Moderate right lung opacities are present. Right lung volume loss. Left lung appears clear of acute infiltrate. The heart is borderline enlarged IMPRESSION: Moderate right lung opacities probably a combination of atelectasis and pneumonia or mas s.
[2020-11-28] MEDS ORDERED: ALTEPLASE 100 ML IV ONE (15:39)
--- NOTE | 2020-11-28 17:43 | ER ---
Nurse's Notes [facility] Name: Vikas Sharma Age: 64 yrs Sex: Male : 1955 Arrival Date: 11/28/2020 Time: 14:55 Bed 3 Private MD: Diagnosis: Presentation: 11/28 14:55 Chief complaint: Patient states: R sided weakness, facial droop, and slurred speech ll1 onset at 1405. Patient states he is fine, just has a dry mouth, denies pain. Refused life flight. EMS states: EMS was called after patient was pulled over by the police for erratic driving and found to be altered. 93%RA, BP 110/50. 20 G L Arm. Pupils non reactive. Fingerstick 156. Coronavirus screen: Client denies travel out of the [place] in the last 14 days. At this time, the client does not indicate any symptoms associated with coronavirus-19. Ebola Screen: Patient denies travel to an Ebola-affected area in the 21 days before illness onset. An acute neurological deficit is present. The charge nurse has been notified. Initial Sepsis Screen: Does the patient meet any 2 criteria? No. Patient's initial sepsis screen is negative. Does the patient have a suspected source of infection? No. Patient's initial sepsis screen is negative. Risk Assessment: Do you want to hurt yourself or someone else? Patient reports no desire to harm self or others. Onset of symptoms was November 28, 2020. 14:55 Method Of Arrival: EMS ll1 14:55 Acuity: DAPHNE 2 ll1 Triage Assessment: 15:00 The onset of the patients symptoms was November 28, 2020 at 14:20. General: Appears in no bp apparent distress. comfortable, Behavior is cooperative, drowsy. Pain: Denies pain. EENT: No deficits noted. Neuro: Level of Consciousness is obeys commands, lethargic, Oriented to person, place, Tipple Tender are weak on right Weakness in right arm(s) leg(s) Speech is slurred, Facial droop on right, Intact Reports weakness. Cardiovascular: Rhythm is sinus tachycardia. Respiratory: No deficits noted. GI: No signs and/or symptoms were reported involving the gastrointestinal system. : No signs and/or symptoms were reported regarding the genitourinary system. Derm: No deficits noted. Musculoskeletal: No deficits noted. Stroke Activation: Symptom onset < 3 hours Physician: Stroke Attending; Name: ; Notified At: ; Arrived At: Physician: Chief Stroke Resident; Name: ; Notified At: ; Arrived At: Physician: Stroke Resident; Name: ; Notified At: ; Arrived At: Physician: ED Attending; Name: ; Notified At: ; Arrived At: Physician: ED Resident; Name: ; Notified At: ; Arrived At: Historical: - Allergies: 14:59 No Known Allergies; ll1 - PMHx: 14:59 Hypertension; High Cholesterol; Psoriatic Arthritis; ll1 - Immunization history:: Adult Immunizations up to date. - Social history:: Smoking status: Patient denies any tobacco usage or history of. Screenin:11 Abuse screen: Denies threats or abuse. Denies injuries from another. Nutritional bp screening: No deficits noted. Tuberculosis screening: No symptoms or risk factors identified. Assessment: 15:13 Reassessment: radiology at the bedside. ap3 15:15 The patient has not been NPO before screening. The patient is not alert and/or unable bp to follow commands. Bedside swallow screen discontinued. Patient kept NPO until cleared by Speech Therapy or Physician. The patient exhibits slurred or garbled speech. The patient is exhibiting difficulty speaking. The patient does not exhibit difficulty understanding words. The patient is able to swallow own secretions with no drooling or need for suction. Patient tolerated one teaspoon of water. No drooling, immediate coughing, gurgling, or clearing of the throat was noted. The patient tolerated 90mL of water. No drooling, immediate coughing, gurgling, or clearing of the throat was noted. The patient failed the bedside swallow screening. The patient will be kept NPO until cleared by Speech Therapy or Physician. Provider notified of bedside swallow screening results: Arcadio Thompson MD. T-PA (Activase) Screening:. Reassessment: PT RETURN FROM CT. PER RAD, NO S/S ACUTE ICH. 15:15 VAN Scoring: Arm Drift: Patients demonstrates NO arm weakness. Patient is VAN Negative. bp 15:45 Reassessment: PT SPOUSE CONSENTED FOR TPA. bp 16:00 Reassessment: TPA INITIATED. bp 17:00 Reassessment: TPA COMPLETED. PT SHOWS COMPLETE RESOLUTION OF S/S. bp 17:15 Reassessment: PT STATING THAT HE WISHES TO LEAVE, BUT AGREES TO REMAIN TO SPEAK WITH MD.bp 17:45 Reassessment: PT D/C OWN PIV, OUT OF BED WITH STEADY GAIT. PT INSISTS HE IS UNWILLING bp TO REMAIN. PT SIGN OUT AMA, LEFT WITH STEADY GAIT, AOX4, STEADY GAIT. PT RELEASED TO HIS . Vital Signs: 14:55 Pain 0/10; ll1 15:30 BP 138 / 73; Pulse 90; Resp 16; Temp 97.9; Pulse Ox 93% ; Weight 74.84 kg; bp 16:00 BP 116 / 93; Pulse 85; Resp 16; Pulse Ox 96% ; bp 17:00 BP 124 / 80; Pulse 89; Resp 19; Pulse Ox 94% ; bp NIH Stroke Scale Scores: 15:15 NIHSS Score: 4 bp 16:00 NIHSS Score: 4 bp 17:00 NIHSS Score: 0 bp ED Course: 14:55 Patient arrived in ED. ll1 14:55 Arm band placed on Patient placed in an exam room, on a stretcher. ll1 14:59 Triage completed. ll1 14:59 Arcadio Thompson MD is Attending Physician. kdr 15:03 Efra Keller, EVELINA is Primary Nurse. bp 15:04 CT Stroke Brain w/o Contrast In Process Unspecified. EDMS 15:09 Maintain EMS IV. Good blood return noted. Site clean \T\ dry. Gauge \T\ site: 20 GAUGE LEFT bp AC. 15:11 ED physician to see patient. Pt visited by . ap3 15:11 Patient has correct armband on for positive identification. Bed in low position. Call bp light in reach. Side rails up X2. cardiac monitor on. Pulse ox on. NIBP on. 15:18 Stroke CXR 1 View In Process Unspecified. EDMS 17:45 No provider procedures requiring assistance completed. intact, bleeding controlled, No bp redness/swelling at site. Pressure dressing applied, PT D/C OWN PIV. Administered Medications: 16:00 Drug: ACTIvase (alteplase) {Co-Signature: ap3 (Mishel Kauffman RN).} Route: IV bp Thrombolytics; Rate: calculated rate; Infused Over: 60 mins; 17:00 Follow up: Response: No adverse reaction; Marked relief of symptoms bp 17:19 Follow up: Response: No adverse reaction bp Point of Care Testing: Blood Glucose: 15:13 Blood Glucose: 113 mg/dL; ap3 Ranges: Outcome: 17:45 AMA AMA form signed bp 17:45 Condition: stable bp 18:02 Patient left the ED. ll1 NIH Stroke Scale - NIH Stroke Score Date: 11/28/2020 Time: 15:15 Total Score = 4 1a. Level of Consciousness (LOC) - 1(Not Alert) 1b. Level of Consciousness (LOC) (Month \T\ Age) - 0(Both) 1c. LOC Commands (Open \T\ Closes Eyes/Heel Edge Inker Machine) - 0(Both) 2. Best Gaze (Lateral Gaze Paresis) - 0(Normal) 3. Visual Field Loss - 0(No visual loss) 4. Facial Palsy - 1(Minor Paralysis) 5a. Left Arm: Motor (10-second hold) - 0(No drift) 5b. Right Arm: Motor (10-second hold) - 0(No drift) 6a. Left Leg: Motor (5-second hold - always test supine) - 0(No drift) 6b. Right Leg: Motor (5-second hold - always test supine) - 1(Drift) 7. Limb Ataxia (finger/nose \T\ heel/cisneros - test with eyes open) - 0(Absent) 8. Sensory Loss (pinprick arms/legs/face) - 0(Normal) 9. Best Language: Aphasia (description/naming/reading) - 0(No aphasia) 10. Dysarthria (speech clarity - read or repeat words) - 1(Mild to Moderate) 11. Extinction and Inattention (visual/tactile/auditory/spatial/personal) - 0(No abnormality) Initials: bp NIH Stroke Scale - NIH Stroke Score Date: 11/28/2020 Time: 16:00 Total Score = 4 1a. Level of Consciousness (LOC) - 1(Not Alert) 1b. Level of Consciousness (LOC) (Month \T\ Age) - 0(Both) 1c. LOC Commands (Open \T\ Closes Eyes/Heel Edge Inker Machine) - 0(Both) 2. Best Gaze (Lateral Gaze Paresis) - 0(Normal) 3. Visual Field Loss - 0(No visual loss) 4. Facial Palsy - 1(Minor Paralysis) 5a. Left Arm: Motor (10-second hold) - 0(No drift) 5b. Right Arm: Motor (10-second hold) - 0(No drift) 6a. Left Leg: Motor (5-second hold - always test supine) - 0(No drift) 6b. Right Leg: Motor (5-second hold - always test supine) - 1(Drift) 7. Limb Ataxia (finger/nose \T\ heel/cisneros - test with eyes open) - 0(Absent) 8. Sensory Loss (pinprick arms/legs/face) - 0(Normal) 9. Best Language: Aphasia (description/naming/reading) - 0(No aphasia) 10. Dysarthria (speech clarity - read or repeat words) - 1(Mild to Moderate) 11. Extinction and Inattention (visual/tactile/auditory/spatial/personal) - 0(No abnormality) Initials: bp NIH Stroke Scale - NIH Stroke Score Date: 11/28/2020 Time: 17:00 Total Score = 0 1a. Level of Consciousness (LOC) - 0(Alert) 1b. Level of Consciousness (LOC) (Month \T\ Age) - 0(Both) 1c. LOC Commands (Open \T\ Closes Eyes/Heel Edge Inker Machine) - 0(Both) 2. Best Gaze (Lateral Gaze Paresis) - 0(Normal) 3. Visual Field Loss - 0(No visual loss) 4. Facial Palsy - 0(Normal) 5a. Left Arm: Motor (10-second hold) - 0(No drift) 5b. Right Arm: Motor (10-second hold) - 0(No drift) 6a. Left Leg: Motor (5-second hold - always test supine) - 0(No drift) 6b. Right Leg: Motor (5-second hold - always test supine) - 0(No drift) 7. Limb Ataxia (finger/nose \T\ heel/cisneros - test with eyes open) - 0(Absent) 8. Sensory Loss (pinprick arms/legs/face) - 0(Normal) 9. Best Language: Aphasia (description/naming/reading) - 0(No aphasia) 10. Dysarthria (speech clarity - read or repeat words) - 0(Normal) 11. Extinction and Inattention (visual/tactile/auditory/spatial/personal) - 0(No abnormality) Initials: bp Signatures: Dispatcher [employer] EDMS Arcadio Thompson MD MD Efra Higgins, RN RN bp Mishel Kauffman, EVELINA RN ap3 Boyd Draper RN RN ll1 Mishel Kauffman RN ap3
[2020-11-28 18:46] VITALS: TEMP 97.9
[2020-11-28 18:49] VITALS: BP 124/80; O2SAT 94
--- NOTE | 2020-11-30 10:44 | EKG ---
Test Date: 2020-11-28 Test Time: 15:06:38 Assistant Infant Toddler Teacher: PANFILO MEASUREMENT RESULTS: Intervals: Rate: 92 PA: 166 QRSD: 106 QT: 404 QTc: 499 [place]: P: 66 PA: 166 QRS: 36 T: 57 INTERPRETIVE STATEMENTS: Normal sinus rhythm Normal ECG Compared to ECG 05/28/2019 08:01:02 Prolonged QT interval no longer present Electronically Signed On 11-30-20 10:40:14 CDT by Justin Forrest
== END 2020-11-28 18:02 | disposition left against medical advice (07) ==
LOC: ER 14:54
DX: R47.81 Slurred speech (principal); R29.810 Facial weakness; R53.1 Weakness; I10 Essential (primary) hypertension; E78.00 Pure hypercholesterolemia, unspecified
CPT/HCPCS: 92977; 93005; 85025; 80048; 36415; 80320; 85610; 82947; 85730; 70450; 71045; 99291; 99292; 96374; J2997

== ENCOUNTER 2021-07-13 16:01 | Inpatient (IN) | payer OTHER ==
--- OUTSIDE RECORDS SUMMARY | 2021-07-13 16:07 | XMS REPORT | Continuity of Care Document ---
:1955 Author Organization [facility] t Address [address] [place] [address] [address] [place] [address] Care Team Providers Name Role Phone Arianna MORE Attending Clinician Unavailable Melissa Kimball Attending Clinician Doctor Unassigned, Name Attending Clinician Unavailable Melissa THOMPSON Attending Clinician Unavailable Payers Payer Name Policy Type Policy Number Effective Date Expiration Date Melissa murry MEDICARE PART A [id number] 2008 \T\ B 00:00:00 Problems Condition Condition Condition Status Onset Resolution Last Treating Co mments Source Name Details Category Date Date Treatment Clinician Date No known No known Disease Unive rs active active ity of problems problems [facility] Allergies, Adverse Reactions, Alerts Allergy Allergy Status Severity Reaction(s) Onset Inactive Treating Comm ents Source Name Type Date Date Clinician NO KNOWN Drug Active Univers ALLERGIE Class ity of S [facility] Social History Social Habit Start Date Stop Date Quantity Comments Source Exposure to Not sure [facility] SARS-CoV-2 (event) [facility] Tobacco use and 2020-09-01 2020-09-01 Never used [facility] exposure 00:00:00 00:00:00 [facility] Sex Ass[birth year] [facility] 00:00:00 00:00:00 [facility] Smoking Status Start Date Stop Date Source Current every day smoker 2020-09-01 00:00:[address] [facility] Medications Ordered Filled Start Stop Current Ordering Indication Dosage Frequency Signature Comments Components Source Medication Medication Date Date Medication? Clinician (SIG) Name Name HYDROcodone Yes Univer s -acetaminop 6-12 ity of hen 10-325 00:00: [place] mg tablet 00 [facility] HYDROcodone 2017-0 Yes Univer s -acetaminop 6-12 ity of hen 10-325 00:00: [place] mg tablet 00 [facility] HYDROcodone 2017-0 Yes Univer s -acetaminop 6-12 ity of hen 10-325 00:00: [place] mg tablet 00 [facility] HYDROcodone 2017-0 Yes Univer s -acetaminop 6-12 ity of hen 10-325 00:00: [place] mg tablet 00 [facility] HYDROcodone 2017-0 Yes Univer s -acetaminop 6-12 ity of hen 10-325 00:00: [place] mg tablet 00 [facility] HYDROcodone 2017-0 Yes Univer s -acetaminop 6-12 ity of hen 10-325 00:00: [place] mg tablet [facility] Branch HYDROcodone 2017-0 Yes Univer s -acetaminop 6-12 ity of hen 10-325 00:00: [place] mg tablet 00 Medical Branch HUMIRA 40 2017-0 Yes Univers mg/0.8 mL 6-05 ity of injection 00:00: [place] 00 [facility] HUMIRA 40 2017-0 Yes Univers mg/0.8 mL 6-05 ity of injection 00:00: [place] [facility] HUMIRA 40 2017-0 Yes Univers mg/0.8 mL 6-05 ity of injection 00:00: [place] [facility] HUMIRA 40 2017-0 Yes Univers mg/0.8 mL 6-05 ity of injection 00:00: [place] [facility] HUMIRA 40 2017-0 Yes Univers mg/0.8 mL 6-05 ity of injection 00:00: [place] [facility] HUMIRA 40 2017-0 Yes Univers mg/0.8 mL 6-05 ity of injection 00:00: [place] 00 [facility] HUMIRA 40 2017-0 Yes Univers mg/0.8 mL 6-05 ity of injection 00:00: [place] [facility] celecoxib 2017-0 Yes Univers 200 mg 5-09 ity of capsule 00:00: [place] [facility] celecoxib 2017-0 Yes Univers 200 mg 5-09 ity of capsule 00:00: [place] [facility] celecoxib 2017-0 Yes Univers 200 mg 5-09 ity of capsule 00:00: [place] [facility] celecoxib 2017-0 Yes Univers 200 mg 5-09 ity of capsule 00:00: [place] [address] Medical Branch celecoxib 2017-0 Yes Univers 200 mg 5-09 ity of capsule 00:00: [place] [facility] celecoxib 2017-0 Yes Univers 200 mg 5-09 ity of capsule 00:00: [place] [address] Medical Branch celecoxib 2017-0 Yes Univers 200 mg 5-09 ity of capsule 00:00: [place] [address] Medical Branch gabapentin 2017-0 Yes Univers 600 mg 4-24 ity of tablet 00:00: [place] [facility] gabapentin 2017-0 Yes Univers 600 mg 4-24 ity of tablet 00:00: [place] [address] [facility] Branch gabapentin 2017-0 Yes Univers 600 mg 4-24 ity of tablet 00:00: [place] [address] [facility] Branch gabapentin 2017-0 Yes Univers 600 mg 4-24 ity of tablet 00:00: [place] [address] Medical Branch gabapentin 2017-0 Yes Univers 600 mg 4-24 ity of tablet 00:00: [place] [address] Medical Branch gabapentin 2017-0 Yes Univers 600 mg 4-24 ity of tablet 00:00: [place] [address] Medical Branch gabapentin 2017-0 Yes Univers 600 mg 4-24 ity of tablet 00:00: [address] Vital Signs Vital Name Observation Time Observation Value Comments Source Systolic blood 2020-09-01 20:17:00 134 mm[Hg] Univer sity [facility] Diastolic blood 2020-09-01 20:17:00 69 [facility]Hg[facility] 2020-09-01 20:17:00 99 /min Universi ty [facility] Body height 2020-09-01 20:17:00 167.6 cm Universi ty [facility] Body weight 2020-09-01 20:17:00 73.483 [address] [facility]i ty [facility] BMI 2020-09-01 20:17:00 26.15 kg/m2 Universi ty [facility] Systolic blood 2020-09-01 20:17:00 134 mm[Hg] Univer sity [facility] Diastolic blood 2020-09-01 20:17:00 69 mm[Hg] [facility] 2020-09-01 20:17:00 99 /min Universi ty [facility] Body height 2020-09-01 20:17:00 167.6 cm [facility] Body weight 2020-09-01 20:17:00 73.483 kg [facility] BMI 2020-09-01 20:17:00 26.15 kg/m2 [facility] Procedures Procedure Date / Time Performing Clinician Source Performed DME/SUPPLY JUSTIFICATION 2020-09-04 05:01:00 Doctor Sarkis, No [facility] Encounters Start End Encounter Admission Attending Care Care Encounter Source Date/Time Date/Time Type Type Clinicians Facility Department ID 2020-09-12 2020-09-12 Outpatient James MORE [facility] [id number] Univers 09:45:00 09:45:00 JENNIFER [id number] [facility] [place] 2020-09-12 2020-09-12 [facility] [id number] Univers 09:45:00 09:45:00 JENNIFER [facility] [place] 2020-09-10 2020-09-10 Outpatient James MORE [facility] [id number] Univers 13:30:00 13:30:00 JENNIFER [id number] [facility] [place] 2020-09-10 2020-09-10 [facility] [id number] Univers 13:30:00 13:30:00 [facility] 2020-09-04 2020-09-04 Telephone Jay NYDEIDRA [id number] 00:00:00 00:00:00 Chris S [facility] [id number] Surgical [id number] Specialti [id number] [address] [place] 2020-09-04 2020-09-04 Orders Doctor MICEHLLE [id number] 00:00:00 00:00:00 Only Unassigned, SHEL[place] [id number] [place] [facility] [id number] 2020-09-04 2020-09-04 [facility] [id number] Univers 00:00:00 00:00:00 Chris S Health [id number] it y of Surgical [id number] [place] as Specialti [id number] Me dical es 198 [facility] 2020-09-04 2020-09-04 Orders Doctor MICHELLE [id number] Univers 00:00:00 00:00:00 Only Unassigned, SHELBY [id number] ity of [place] [facility] [id number] Corey as [id number] [address] 2020-09-03 2020-09-03 [facility]phone [facility] [id number] Univers 00:00:00 00:00:00 [facility] S Health [id number] it y of Surgical [id number] Corey as Specialti [id number] Me dical es 198 [facility] 2020-09-03 2020-09-03 Telephone [facility] [id number] 00:00:00 00:00:00 [facility] S Health [id number] Surgical [id number] Specialti [id number] es [address] [place] 2020-09-01 2020-09-01 Office [facility] [id number] Univers 15:08:01 15:23:01 Visit [facility] S Health [id number] it y of Surgical [id number] Corey as Specialti [id number] Me dical es 198 [facility] 2020-09-01 2020-09-01 Office [facility] [id number] 15:08:01 15:23:01 Visit [facility] Health [id number] Surgical [id number] Specialti [id number] es [address] [place] 2020-09-01 2020-09-01 Outpatient James THOMPSON [facility] [id number] Univers 15:00:00 15:00:00 CHRIS [id number] [facility] [place] 2020-09-01 2020-09-01 Outpatient James THOMPSON [facility] [id number] Univers 15:00:00 15:00:00 CHRIS [facility] [place] 2020-09-01 2020-09-01 Telephone [facility] [id number] 00:00:00 00:00:00 Chris S Health [id number] Surgical [id number] Specialti [id number] es [address] [place] 2020-09-01 2020-09-01 Telephone [facility] [id number] [facility] 00:00:00 00:00:00 Chris S Health [id number] it y of Surgical [id number] Corey as Specialti [id number] Wy dical es [address] [place] 2020-09-01 2020-09-01 Telephone [facility] [id number] Univers 00:00:00 00:00:00 [facility] Health [id number] it y of Surgical [id number] Corey as Specialti [id number] Wy dical es 198 [facility] 2020-09-01 2020-09-01 Telephone [facility] [id number] 00:00:00 00:00:00 [facility] Health [id number] Surgical [id number] Specialti [id number] [address] [place] Results This patient has no known results.
[2021-07-13 16:51] LABS: Absolute Lymphocytes (CBC) 0.9 K/uL (0.7-4.9); Hematocrit 38.1 % (39.6-49.0); Lymphocytes % 12.6 % (15.3-44.8); MPV 8.8 fL (7.6-11.3); RBC Red Blood Cell Count 4.24 M/uL (4.33-5.43)
--- NOTE | 2021-07-13 16:59 | RAD REPORT ---
EXAM DESCRIPTION: CT - Head Brain Wo Cont - 07/13/2021 4:52 pm CLINICAL HISTORY: Alteration of awareness/confusion COMPARISON: 2020 TECHNIQUE: Computed axial tomography of the head was obtained. IV contrast was not requested. All CT scans are performed using dose optimization technique as appropriate and may include automated exposure control or mA/KV adjustment according to patient size. FINDINGS: An intracranial bleed is not seen . The ventricles are normal in caliber. No extra-axial fluid collection is noted. Fluid within the sinuses/ mastoids is not seen. IMPRESSION: No acute intracranial abnormality is seen. If patient's symptoms persist MRI of the bra in would be recommended.
[2021-07-13 17:08] LABS: Protime INR 1.15
[2021-07-13 17:12] LABS: Potassium 4.1 mmol/L (3.5-5.1)
[2021-07-13 17:41] LABS: Albumin 2.9 g/dL (3.4-5.0); Bilirubin Direct 0.3 mg/dL (0-0.2); Bilirubin Total 0.6 mg/dL (0.2-1.0); Protein, Total 6.8 g/dL (6.4-8.2)
[2021-07-13] MEDS ORDERED: NA CHLORIDE 0.9% 1,000 ML ONE (18:06)
--- NOTE | 2021-07-13 18:36 | RAD REPORT ---
EXAM DESCRIPTION: CT - Abdomen Pelvis W Contrast - 07/13/2021 6:20 pm CLINICAL HISTORY: Abdominal pain/abnormal liver function test enzymes COMPARISON: 2019 TECHNIQUE: Computed axial tomography of the abdomen pelvis was obtained. 100 cc Isovue-300 was admin istered intravenously. Oral contrast was not requested which limits evaluation of bowel. All CT scans are performed using dose optimization technique as appropriate and may include automated exposure control or mA/KV adjustment according to patient size. FINDINGS: Right lower lobe consolidation Hepatic and splenic granulomata. Dilatation of the biliary tree not noted. Atrophic pancreas. The adrenals and kidneys unremarkable. The infrarenal abdominal aorta is ectatic. There is no evidence of diverticulitis. Surgical clips right inguinal region. Moderate to large right inguinal hernia contains fat. Bilateral hip arthroplasties. IMPRESSION: Moderate to large right inguinal hernia Right lower lobe consolidation presumably pneumonia
--- NOTE | 2021-07-13 18:37 | RAD REPORT ---
EXAM DESCRIPTION: [place] Single View07/13/2021 6:00 pm CLINICAL HISTORY: Confusion COMPARISON: none FINDINGS: Right lower lobe consolidation presumably pneumonia. Right lung volume loss Left lung appears clear of acute infiltrate The heart is moderately enlarged.
--- NOTE | 2021-07-13 18:46 | ER ---
Nurse's Notes [facility] Name: Vikas Sharma Age: 65 yrs Sex: Male : 1955 Arrival Date: 07/13/2021 Time: 16:04 Bed 28 Private MD: Joel Manzano V Diagnosis: Pneumonia, unspecified organism;Altered mental status, unspecified;Muscle weakness (generalized) Presentation: 07/13 16:18 Chief complaint: Spouse and/or significant other states: states that pt has been ph confused and lethargic since Tuesday, presents to ED w/ difficulty following commands, slurred speech, confusion and generalized weakness. Pt denies chest pain or headache, oriented to person and place only. Coronavirus screen: Vaccine status: Patient reports being unvaccinated. Ebola Screen: No symptoms or risks identified at this time. An acute neurological deficit is present. Pre-hospital glucose is not applicable to this patient. Initial Sepsis Screen: Does the patient meet any 2 criteria? Altered Mental Status. Does the patient have a suspected source of infection? No. Patient's initial sepsis screen is negative. Risk Assessment: Do you want to hurt yourself or someone else? Patient reports no desire to harm self or others. 16:18 Method Of Arrival: Wheelchair ph 16:18 Acuity: DAPHNE 2 ph Stroke Activation: Symptom onset > 6 hours Physician: Stroke Attending; Name: ; Notified At: ; Arrived At: Physician: Chief Stroke Resident; Name: ; Notified At: ; Arrived At: Physician: Stroke Resident; Name: ; Notified At: ; Arrived At: Physician: ED Attending; Name: ; Notified At: ; Arrived At: Physician: ED Resident; Name: ; Notified At: ; Arrived At: Historical: - Allergies: 16:21 No Known Allergies; ph - PMHx: 16:21 High Cholesterol; Hypertension; Psoriatic Arthritis; ph - Immunization history:: Adult Immunizations unknown. - Social history:: Smoking status: Patient reports the use of cigarette tobacco products, smokes one pack cigarettes per day. - Family history:: not pertinent. - Hospitalizations: : No recent hospitalization is reported. Screenin:07 Abuse screen: Denies threats or abuse. Denies injuries from another. Nutritional ww screening: Unable to evaluate at this time. Tuberculosis screening: No symptoms or risk factors identified. patients spouse denies. Assessment: 16:48 Reassessment: Pt taken to CT from triage. ph 18:07 General: Appears in no apparent distress. Behavior is calm, drowsy. Pain: Denies pain. ww Neuro: Level of Consciousness is lethargic, Oriented to none Patient states he is in [place] in a brick building, States he is 27 years old and Yannick Cates is the president. . Cardiovascular: Capillary refill Patient's skin is warm and dry. Rhythm is regular Chest pain is denied. Respiratory: Airway is patent Respiratory effort is even, unlabored, Respiratory pattern is regular, symmetrical, When patient is sleeping his oxygen dropped down to 80%. Placed on NC. Dr. Martínez at bedside and aware. GI: Abdomen is non-distended. Derm: Skin is intact, Skin is pink, warm \T\ dry. 20:00 General: Appears in no apparent distress. Behavior is agitated, restless. Pain: Denies al4 pain. Neuro: Level of Consciousness is awake, confused, Oriented to person. Cardiovascular: Capillary refill < 3 seconds Patient's skin is warm and dry. Respiratory: Airway is patent Respiratory effort is unlabored, Respiratory pattern is regular. Musculoskeletal: Circulation, motion, and sensation intact. 21:51 Reassessment: Patient is upset and agitated. Patient threatening to take the IV al4 catheter out of arm. Patient calling 911 multiple times. Patient is yelling and pacing around room. RN attempted education on the need for admit and also about leaving AMA. Patient is not alert and oriented. 22:00 Reassessment: Patient refusing to give urine sample. Patient agitated and confused. al4 Pacing ED trying to leave. 22:42 Reassessment: patient walking around ED stating he is trying to find his . security al4 called to the ED. Patient is confused and will not follow commands. 22:46 Reassessment: Report given to EVELINA Dennis. al4 Vital Signs: 16:18 BP 108 / 65; Pulse 89; Resp 18; Temp 98.3; Pulse Ox 92% on R/A; ph 18:07 BP 111 / 69; Pulse 81; Resp 16; Pulse Ox 91% on 3 lpm NC; ww 19:30 BP 110 / 82; Pulse 74; Resp 14 S; Pulse Ox 91% on R/A; al4 20:30 BP 130 / 89; Pulse 72; Resp 18 S; Pulse Ox 97% on R/A; al4 21:30 BP 132 / 89; Pulse 87; Resp 18 S; Pulse Ox 98% on R/A; al4 ED Course: 16:04 Patient arrived in ED. mr 16:04 Joel Manzano MD is Private Physician. mr 16:21 Triage completed. ph 16:22 Arm band placed on left wrist. ph 16:25 Christopher Martínez MD is Attending Physician. rn 16:45 Initial lab(s) drawn, by vt, sent to lab. Inserted saline lock: 22 gauge in right ph forearm, using aseptic technique. Blood collected. 16:54 Head Brain Wo Cont In Process Unspecified. EDMS 17:50 Bere Dupree, EVELINA is Primary Nurse. ww 18:02 Stroke CXR 1 View In Process Unspecified. EDMS 18:07 Patient has correct armband on for positive identification. Bed in low position. Call ww light in reach. Side rails up X2. Adult w/ patient. cargo and ramp services manager on. Pulse ox on. NIBP on. Warm blanket given. 18:07 EKG done. Oxygen administration via nasal cannula \T\ 3L/min. ww 18:22 CT Abd/Pelvis - IV Contrast Only In Process Unspecified. EDMS 18:44 Joel Manzano MD is Hospitalizing Provider. rn 18:55 US Abdomen Limited In Process Unspecified. EDMS Administered Medications: 18:06 Drug: NS 0.9% 1000 ml Route: IV; Rate: 1000 ml; Site: right forearm; 21:55 Follow up: Response: No adverse reaction al4 22:52 Follow up: IV Status: Completed infusion al4 19:02 Drug: Rocephin (cefTRIAXone) 1 grams Route: IV; Rate: calculated rate; Site: right forearm; 21:54 Follow up: Response: No adverse reaction; IV Status: Completed infusion al4 21:11 Drug: Zithromax (azithromycin) 500 mg Route: IVPB; Infused Over: 1 hrs; Site: right al4 antecubital; 21:54 Follow up: Response: No adverse reaction; IV Status: Completed infusion al4 Outcome: 18:45 Decision to Hospitalize by Provider. rn 22:45 Admitted to ER Hold. Please see [facility] for further documentation. al4 22:45 Condition: stable 22:45 Instructed on the need for admit. 07/14 09:20 Patient left the ED. vg1 Signatures: Dispatcher [employer] DARIO TsaiLeeann Mauricio, MD MD evelina White Patricia, RN RN ph Garcia, Flor RN RN vg1 Lalo Duarte Whitney RN RN
--- NOTE | 2021-07-13 18:46 | EDPHYS ---
Physician Documentation [facility] Name: Vikas Sharma Age: 65 yrs Sex: Male : 1955 Arrival Date: 07/13/2021 Time: 16:04 Bed 28 Private MD: Joel Manzano V ED Physician Christopher Martínez HPI: 07/13 17:08 This 65 yrs old Male presents to ER via Wheelchair with complaints of S/S of Possible rn Stroke. 17:08 The patient's problem is reported as altered mental status, disoriented to place, time, rn confused. Onset: The symptoms/episode began/occurred 3 day(s) ago. Duration: This was a single incident. Context:. The symptoms are alleviated by nothing. The symptoms are aggravated by nothing. Associated signs and symptoms: Pertinent positives: confusion, Pertinent negatives: abdominal pain, chest pain, seizure. Severity of symptoms: At their worst the symptoms were moderate in the emergency department the symptoms are unchanged. The patient has not experienced similar symptoms in the past. The patient has not recently seen a physician. states AMS and disorientation for 3 days, now, noticed it began on Tuesday, no known trauma. Reports generalized weakness, difficulty walking, confusion. . Historical: - Allergies: 16:21 No Known Allergies; ph - PMHx: 16:21 High Cholesterol; Hypertension; Psoriatic Arthritis; ph - Immunization history:: Adult Immunizations unknown. - Social history:: Smoking status: Patient reports the use of cigarette tobacco products, smokes one pack cigarettes per day. - Family history:: not pertinent. - Hospitalizations: : No recent hospitalization is reported. ROS: 17:08 Constitutional: Negative for fever, chills, and weight loss, Eyes: Negative for injury, rn pain, redness, and discharge, ENT: Negative for injury, pain, and discharge, Neck: Negative for injury, pain, and swelling, Cardiovascular: Negative for chest pain, palpitations, and edema, Respiratory: Negative for shortness of breath, cough, wheezing, and pleuritic chest pain, Abdomen/GI: Negative for abdominal pain, nausea, vomiting, diarrhea, and constipation, Back: Negative for injury and pain, : Negative for injury, bleeding, discharge, and swelling, MS/Extremity: Negative for injury and deformity, Skin: Negative for injury, rash, and discoloration, Neuro: + confusion and AMS, + weakness Exam: 17:08 Constitutional: This is a well developed, well nourished patient who is awake, alert, rn agitated and difficult to redirect Head/Face: Normocephalic, atraumatic. Eyes: Periorbital areas with no swelling, redness, or edema. Cardiovascular: Regular rate and rhythm. No pulse deficits. Respiratory: No increased work of breathing, no retractions or nasal flaring. Abdomen/GI: Soft, non-tender Skin: Warm, dry, no cyanosis MS/ Extremity: Pulses equal, no cyanosis. Neuro: Awake, somnolent, GCS 15, + RUE and RLE weakness with drift but also weak on left side, R> L, + slurred speech, not oriented to time. Difficult to keep on task. Unable to stand on his own, required assistance out of vehicle. Vital Signs: 16:18 BP 108 / 65; Pulse 89; Resp 18; Temp 98.3; Pulse Ox 92% on R/A; ph 18:07 BP 111 / 69; Pulse 81; Resp 16; Pulse Ox 91% on 3 lpm NC; ww 19:30 BP 110 / 82; Pulse 74; Resp 14 S; Pulse Ox 91% on R/A; al4 20:30 BP 130 / 89; Pulse 72; Resp 18 S; Pulse Ox 97% on R/A; al4 21:30 BP 132 / 89; Pulse 87; Resp 18 S; Pulse Ox 98% on R/A; al4 MDM: 16:27 ED course: Pt with AMS since Tuesday per . Outside of TPA window. . rn 18:05 Patient medically screened. rn 18:38 ED course: Pt denies overdose on tylenol. states takes pain medication. Previous government affairs fellow list includes norco 10mg. . 18:42 Differential diagnosis: CVA, TIA, metabolic disorder, pneumonia, UTI. Data reviewed: rn vital signs, nurses notes, lab test result(s), radiologic studies, CT scan, plain films, and as a result, I will admit patient. Counseling: I had a detailed discussion with the patient and/or guardian regarding: the historical points, exam findings, and any diagnostic results supporting the discharge/admit diagnosis, lab results, radiology results, the need for further work-up and treatment in the hospital. Response to treatment: the patient's symptoms have mildly improved after treatment, and as a result, I will admit patient. Admission orders: after a detailed discussion of the patient's condition and case, the admit orders are written by me. 07/13 16:23 Order name: Basic Metabolic Panel; Complete Time: 17:15 ph 07/13 16:23 Order name: CBC with Diff; Complete Time: 17:15 ph 07/13 16:23 Order name: Protime (+inr); Complete Time: 17:15 ph 07/13 16:23 Order name: Ptt, Activated; Complete Time: 17:15 ph 07/13 16:26 Order name: Acetaminophen; Complete Time: 17:48 rn 07/13 16:26 Order name: ETOH Level; Complete Time: 17:48 rn 07/13 16:26 Order name: Hepatic Function; Complete Time: 17:48 rn 07/13 16:26 Order name: Salicylate; Complete Time: 17:48 rn 07/13 16:26 Order name: Urine Drug Screen rn 07/13 16:26 Order name: AMMONIA; Complete Time: 17:15 rn 07/13 18:46 Order name: COVID-19/FLU A+B (Document "Date of Onset" if Symptomatic) rn 07/14 06:54 Order name: CBC with Automated Diff EDMS 07/14 07:07 Order name: Basic Metabolic Panel EDMS 07/13 16:23 Order name: Stroke CXR 1 View; Complete Time: 18:45 ph 07/13 16:23 Order name: EKG; Complete Time: 16:24 ph 07/13 16:23 Order name: Accucheck; Complete Time: 18:00 ph 07/13 16:23 Order name: Cardiac monitoring; Complete Time: 18:01 ph 07/13 16:23 Order name: EKG - Nurse/Tech; Complete Time: 18:01 ph 07/13 16:23 Order name: IV Saline Lock; Complete Time: 16:49 ph 07/13 16:23 Order name: Labs collected and sent; Complete Time: 16:49 ph 07/13 16:23 Order name: NPO; Complete Time: 16:49 ph 07/13 16:23 Order name: O2 Per Protocol; Complete Time: 16:49 ph 07/13 16:23 Order name: O2 Sat Monitoring; Complete Time: 16:48 ph 07/13 16:41 Order name: Head Brain Wo Cont; Complete Time: 17:15 EDMS 07/13 17:49 Order name: CT Abd/Pelvis - IV Contrast Only; Complete Time: 18:45 rn 07/13 17:49 Order name: US Abdomen Limited rn Administered Medications: 18:06 Drug: NS 0.9% 1000 ml Route: IV; Rate: 1000 ml; Site: right forearm; ww 21:55 Follow up: Response: No adverse reaction al4 22:52 Follow up: IV Status: Completed infusion al4 19:02 Drug: Rocephin (cefTRIAXone) 1 grams Route: IV; Rate: calculated rate; Site: right ww forearm; 21:54 Follow up: Response: No adverse reaction; IV Status: Completed infusion al4 21:11 Drug: Zithromax (azithromycin) 500 mg Route: IVPB; Infused Over: 1 hrs; Site: right al4 antecubital; 21:54 Follow up: Response: No adverse reaction; IV Status: Completed infusion al4 Disposition Summary: 07/13/21 18:45 Hospitalization Ordered Hospitalization Status: Inpatient Admission rn Provider: Joel Manzano rn Condition: Stable rn Problem: new rn Symptoms: are unchanged rn Bed/Room Type: Standard rn Location: Telemetry/MedSurg (Inpatient)(07/14/21 07:49) Room Assignment: 403(07/14/21 07:49) Diagnosis - Pneumonia, unspecified organism rn - Altered mental status, unspecified rn - Muscle weakness (generalized) rn Forms: - Medication Reconciliation Form rn - SBAR form rn Signatures: Dispatcher [employer] [facility] Mamie Wei Christopher Martínez MD MD rn Hall, Patricia, RN RN ph Garcia, Cindy, RN Lalo Pettit al4 Bere Dupree RN RN ww Corrections: (The following items were deleted from the chart) 16:41 16:24 CT-STROKE BRAIN W/O CONTRAST+CT.RAD.BRZ ordered. [facility] EDPR 18:29 17:08 Constitutional: This is a well developed, well nourished patient who is awake, rn alert, agitated and difficult to redirect Head/Face: Normocephalic, atraumatic. Eyes: Periorbital areas with no swelling, redness, or edema. Cardiovascular: Regular rate and rhythm. No pulse deficits. Respiratory: No increased work of breathing, no retractions or nasal flaring. Abdomen/GI: Soft, non-tender Skin: Warm, dry, no cyanosis MS/ Extremity: Pulses equal, no cyanosis. Neuro: Awake, alert, GCS 15, + RUE and RLE weakness with drift, + slurred speech, not oriented to time. Difficult to keep on task. Unable to stand on his own, required assistance out of vehicle. rn 18:29 17:08 Constitutional: This is a well developed, well nourished patient who is awake, rn alert, agitated and difficult to redirect Head/Face: Normocephalic, atraumatic. Eyes: Periorbital areas with no swelling, redness, or edema. Cardiovascular: Regular rate and rhythm. No pulse deficits. Respiratory: No increased work of breathing, no retractions or nasal flaring. Abdomen/GI: Soft, non-tender Skin: Warm, dry, no cyanosis MS/ Extremity: Pulses equal, no cyanosis. Neuro: Awake, alert, GCS 15, + RUE and RLE weakness with drift but also weak on left side, R> L, + slurred speech, not oriented to time. Difficult to keep on task. Unable to stand on his own, required assistance out of vehicle. rn 18:45 Telemetry/MedSurg (Inpatient) rn cg : 18:45 estrella cg 07/14 07:49 07/13 21:52 [facility] ER HOLD cg bd 07/14 07:49 07[facility]13 [facility]
[2021-07-13] MEDS ORDERED: CEFTRIAXONE 1000 MG/VIAL ONE ×2 (18:59→23:36)
[2021-07-13] MEDS ORDERED: NA CHLORIDE 0.9% 250 ML ONE ×2 (18:59→20:32)
[2021-07-13] MEDS ORDERED: NA CHLORIDE 0.9% 100 ML IV ONE (18:59)
[2021-07-13] MEDS ORDERED: AZITHROMYCIN 500 MG INJ IVPB ONE ×2 (18:59→20:32)
--- NOTE | 2021-07-13 19:07 | RAD REPORT ---
EXAM DESCRIPTION: US - Abdomen Exam Limited - 07/13/2021 6:54 pm CLINICAL HISTORY: Abdominal pain. COMPARISON: 2019 FINDINGS: The gallbladder wall is not thickened. A gallstone is not seen. The biliary tree is normal caliber. IMPRESSION: Unremarkable gallbladder ultrasound.
[2021-07-13 20:19] LABS: SARS-COV-2 RT PCR NEGATIVE (NEGATIVE)
[2021-07-13] MEDS ORDERED: ACETAMINOPHEN 500 MG TAB PO PRN (21:49)
[2021-07-13] MEDS ORDERED: IPRATROPIUM BROM 0.5MG/2.5ML NEB PRN (21:49)
[2021-07-13] MEDS ORDERED: ONDANSETRON 4 MG/2 ML VIAL IV PRN (21:49)
[2021-07-13] MEDS ORDERED: ALBUTEROL 2.5 MG/3 ML NEB SOL NEB PRN (21:49)
[2021-07-13] MEDS ORDERED: HALOPERIDOL LACT 5 MG/ML INJ IV PRN (21:57)
[2021-07-13] MEDS ORDERED: HALOPERIDOL LACT 5 MG/ML INJ ONE (21:57)
[2021-07-13] MEDS ORDERED: ZIPRASIDONE MESYLA 20 MG/VIAL IM ONE (22:39)
[2021-07-13] MEDS ORDERED: WATER FOR INJ,STERILE 10 ML IM PRN (22:47)
[2021-07-13] MEDS ORDERED: ZIPRASIDONE MESYLA 20 MG/VIAL IM PRN (22:47)
[2021-07-13] MEDS ORDERED: CEFTRIAXONE 1,000 MG in NA CHLORIDE 0.9% 50 ML IVPB SCH (23:00)
[2021-07-13] MEDS ORDERED: NA CHLORIDE 0.9% 0 ML ONE (23:37)
[2021-07-14 02:38] VITALS: BMI 25.5
[2021-07-14 03:42] VITALS: BP 121/76; TEMP 98.8
[2021-07-14] MEDS ORDERED: CEFTRIAXONE 1,000 MG in NA CHLORIDE 0.9% 50 ML IVPB SCH (06:00)
[2021-07-14 06:53] LABS: Absolute Lymphocytes (CBC) 0.9 K/uL (0.7-4.9); Hematocrit 33.7 % (39.6-49.0); Lymphocytes % 14.2 % (15.3-44.8); MPV 8.2 fL (7.6-11.3); RBC Red Blood Cell Count 3.76 M/uL (4.33-5.43)
[2021-07-14 07:07] LABS: BUN Blood Urea Nitrogen 25 mg/dL (7-18); Bicarbonate 29 mmol/L (21-32); Glucose Level 93 mg/dL (74-106); Potassium 3.9 mmol/L (3.5-5.1); Sodium Level 143 mmol/L (136-145)
--- NOTE | 2021-07-14 08:24 | P.SSS ---
Patient History Date of Service: 07/14/21 Reason for admission: HE DOES NOT KNOW WHY HE IS HERE History of Present Illness: MR. SMITH WAS BROUGHT TO HOSPITAL BY . HE DOES NOT KNOW WHY. HE FOUGHT NURSES ALL NIGHT WALKING AROUND IN THE ER, THEY CALLED ME A FEW TIMES TO CONTROL HIM. HALDOL DID NOT WORK, LATER I TRIED GEODON. HE HAS BEEN ON NARCOTICS FOR LONG TIME, HE IS A HEAVY SMOKER AND IN THE PAST HAS NOT CARED MUCH ABOUT COMPLICATIONS OF SMOKING. HE DOES NOT COME TO OFFICE MUCH BUT GOES TO HIS PAIN DOCTOR MONTHLY. I AM TRYING TO GET HOLD OF HE WANTS TO HO HOME. HE IS ANGRY AND UNCOOPERATIVE. HE KNOWS WHERE HE IS AND WANTS TO GO HOME. HE IS MORE DANGEROUS AT HOSPITAL THAN AT HOME. IS WILLING TO TAKE HIM HOME ON LEVAAQIN. Allergies No Known Allergies Allergy (Verified 05/04/16 08:26) Home medications list reviewed: Yes Home Medications: Adalimumab [Humira 40 MG/0.8 ML*] 40 mg SQ SEECOM 05/27/19 Gabapentin [Neurontin] 800 mg PO TID 05/27/19 Hydrocodone Bit/Acetaminophen [Hydrocodon-Acetaminophn 10-325] 1 each PO QIDP PRN 05/27/19 Pravastatin Sodium [Pravachol] 40 mg PO BEDTIME 05/27/19 lisinopriL [Lisinopril] 10 mg PO DAILY 05/27/19 Fluticasone/Salmeterol [Advair 250-50 Diskus] 1 each IH BID 30 Days #60 blst.w.dev 05/31/19 Amox/Clavulanate [Augmentin 875-125 Tab*] 875 mg PO BID #28 tab 06/04/19 Doxycycline Hyclate 100 mg PO BID #28 tablet 06/04/19 - Past Medical/Surgical History Diabetic: No -: Htn -: high Cholesterol -: psoriatic arthritis -: R Knee Surgery -: Gideon Hip repalcement -: Hernia Repair x2 - Social History Smoking Status: Unknown if ever smoked Alcohol use: No CD- Drugs: No Caffeine use: Yes Place of Residence: Home Review of Systems 10-point ROS is otherwise unremarkable Physical Examination - Vital Signs Temperature: 98.8 F Blood Pressure: 121/76 Pulse: 74 Respirations: 19 Pulse Ox (%): 97 - Physical Exam General: In no apparent distress, Oriented x3 HEENT: Atraumatic, PERRLA, Mucous membr. moist/pink, EOMI, Sclerae nonicteric Neck: Supple, 2+ carotid pulse no bruit, No LAD, Without JVD or thyroid abnormality Respiratory: Clear to auscultation bilaterally, Normal air movement Cardiovascular: Regular rate/rhythm, Normal S1 S2 Gastrointestinal: Normal bowel sounds, No tenderness Musculoskeletal: No tenderness Integumentary: No rashes Neurological: Normal gait, Normal speech, Normal strength at 5/5 x4 extr, Normal tone, Normal affect Lymphatics: No axilla or inguinal lymphadenopathy - Studies Laboratory Data (last 24 hrs) 07/13/21 16:35: Total Bilirubin 0.6, AST 690 H*, ALT 2040 H*, Alkaline Phos phatase 94 07/13/21 16:35: PT 12.7 H, INR 1.15, APTT 27.5 07/13/21 16:35: WBC 6.8, Hgb 12.4 L, Hct 38.1 L, Plt Count 157 07/13/21 16:35: Sodium 142, Potassium 4.1, BUN 39 H, Creatinine 1.03, Glucose 116 H - Diagnosis (Problem(s)) (1) COPD (chronic obstructive pulmonary disease) Current Visit: No Status: Chronic Plan: SMOKER AND REFUSES TO QUIT. HE HAS MEDS FROM DR SEGURA. Qualifiers: Chronic bronchitis type: unspecified (2) Pneumonia Current Visit: No Status: Acute Plan: LEVAQUIN PO STOP IV. HE HAS NOT ALLOWED IV ABX ANYWAY. LEVAQIN IS GOOD IV ABX FOR COPD RELATE PNEUMONIA. Qualifiers: Pneumonia type: due to unspecified organism - Disposition Disposition: ROUTINE DISCHARGE
--- NOTE | 2021-07-14 08:30 | EKG ---
Test Date: 2021-07-13 Test Time: 17:54:15 Entertainment Agent: BRITTANY MEASUREMENT RESULTS: Intervals: Rate: 80 WI: 162 QRSD: 114 QT: 440 QTc: 507 [place]: P: 66 WI: 162 QRS: 35 T: 46 INTERPRETIVE STATEMENTS: Normal sinus rhythm Cannot rule out Inferior infarct, age undetermined Prolonged QT Abnormal ECG Compared to ECG 11/28/2020 15:06:38 Myocardial infarct finding now present Prolonged QT interval now present Electronically Signed On 07-14-21 08:27:58 CDT by Justin Forrest
[2021-07-14 08:56] VITALS: O2SAT 98
[2021-07-14] MEDS ORDERED: AZITHROMYCIN IV 250 MG in NA CHLORIDE 0.9% 250 ML IVPB SCH (18:00)
== END 2021-07-14 09:22 | disposition home or self-care (01) | DRG 194 ==
LOC: ER 16:01 → ERHOLD 20:37
PROVIDERS: ADMIT Internal Medicine; ATTEND Internal Medicine
DX: J18.9 Pneumonia, unspecified organism (principal); J44.0 Chronic obstructive pulmonary disease with (acute) lower respiratory infection; I10 Essential (primary) hypertension; F17.200 Nicotine dependence, unspecified, uncomplicated; Z79.899 Other long term (current) drug therapy; Z96.643 Presence of artificial hip joint, bilateral; Z20.822 Contact with and (suspected) exposure to COVID-19
CPT/HCPCS: 0240U; 36415; 70450; 71045; 74177; 76705; 80048; 80076; 80320; 80329; 82140; 85025; 85610; 85730; 93005; 94760; 99285; J0456; J1630; J3486; J7030; J7050; Q9967

== ENCOUNTER 2022-10-07 12:36 | Observation (INO) | payer OTHER ==
--- OUTSIDE RECORDS SUMMARY | 2022-10-07 13:53 | XMS REPORT | Continuity of Care Document ---
:1955 Author Organization [facility] t Address [address] [place] [address] [place] [id number] Care Team Providers Name Role Phone ANKURALLENJAYCOB Primary Care Physician Unavailable Albert Attending Clinician Unavailable JENNIFER SCHERER Attending Clinician Unavailable ASHLEY AYALA Attending Clinician Unavailable Ashley Ayala MD Attending Clinician LINNEA TORRES Attending Clinician Unavailable Jennifer Scherer MD Attending Clinician Linnea Kimball Attending Clinician Doctor Unassigned, [place] Attending Clinician Unavailable Albert Admitting Clinician Unavailable ASHLEY AYALA Admitting Clinician Unavailable Payers Payer Name Policy Type Policy Number Effective Date Expiration Date S jeanmarie MEDICARE [place]: [id number] 2008 [employer] 00:00:00 MEDICARE PART A [id number] 2008 \T\ B 00:00:00 Problems Condition Condition Condition Status Onset Resolution Last Treating Co mments Source Name Details Category Date Date Treatment Clinician Date No known No known Disease Unive rs active active ity of problems problems [facility] Allergies, Adverse Reactions, Alerts Allergy Allergy Status Severity Reaction(s) Onset Inactive Treating Comm ents Source Name Type Date Date Clinician NO KNOWN Drug Active Univers ALLERGIE Class ity of S [facility] Social History Social Habit Start Date Stop Date Quantity Comments Source History of Smokes tobacco University of tobacco use daily [facility] Exposure to 2022-06-08 2022-06-18 Not sure [facility] SARS-CoV-2 00:00:00 10:08:00 [facility] (event) Branch Tobacco use and 2020-09-01 2020-09-01 Smokeless tobacco Un iversity of exposure 00:00:00 00:00:00 non-user [facility] Sex Ass[birth year] Universit y of 00:00:00 00:00:00 [facility] Smoking Status Start Date Stop Date Source Smokes tobacco daily 2020-09-01 00:00:00 Univers ity of [facility] Medications Ordered Filled Start Stop Current Ordering Indication Dosage Frequency Signature Comments Components Source Medication Medication Date Date Medication? Clinician (SIG) Name Name dexamethaso 2022- No 10mg 10 mg, Uni vers ne sod phos 06-18 Intramuscu i ty of PF 18:00: 18:09 lar, ONCE, [place] injection 00 :00 1 dose, On Medi willian 10 mg [facility] 06/18/22 at 1200, 1 mL ketorolac 2022- No 10mg 10 mg, Unive rs (TORADOL) 06-1810 Oral, ONCE ity of tablet 10 18:00: 16:57 NOW, 1 [place] mg 00 :00 dose, On Medical [facility] 06/18/22 at 1200, ANGÉLICA acetaminoph 2022- No 975mg 975 mg, U nivers en 06-1810 Oral, ONCE ity of (TYLENOL) 18:00: 16:57 NOW, 1 [place] tablet 975 00 :00 dose, On Medic al mg [facility] 06/18/22 at 1200, ANGÉLICA FENTanyl PF 2022- No 50ug 50 mcg, Un joleen (SUBLIMAZE 06-18 Intramuscu it y of (PF)) 17:00: 16:50 lar, ONCE, [place] injection 00 :00 1 dose, On Medi willian 50 mcg [facility] 06/18/22 at 1100, STAT meloxicam 2022- Yes [id number] 15mg Take 1 Univers 15 mg 06-18 9109 tablet by ity of tablet 00:00: mouth in [place] 00 the Medical morning. Branch predniSONE 2022-0 Yes [id number] Take 2 Univers 20 mg 3-10 9109 tablets PO ity of tablet 00:00: daily [place] 00 Medical Branch acetaminoph 2022-0 Yes [id number] 650mg Take 1 Univers en (TYLENOL 3-10 9109 tablet by ity of ARTHRITIS 00:00: mouth [place] PAIN) 650 00 every 8 Medical mg CR (eight) Branch tablet hours as needed for Pain. HYDROcodone 2016-0 Yes Univer s -acetaminop 6-12 ity of hen 10-325 00:00: [place] mg tablet 00 Medical Branch HYDROcodone 2016-0 Yes Univer s -acetaminop 6-12 ity of hen 10-325 00:00: [place] mg tablet 00 Medical Branch HYDROcodone 2016-0 Yes Univer s -acetaminop 6-12 ity of hen 10-325 00:00: [place] mg tablet 00 Medical Branch HYDROcodone 2016-0 Yes Univer s -acetaminop 6-12 ity of [...] mg/0.8 mL 6-05 ity of injection 00:00: [place] 00 [facility] Branch HUMIRA 40 2017-0 Yes Univers mg/0.8 mL 6-05 ity of injection 00:00: [address] 40 2017-0 Yes Univers mg/0.8 mL 6-05 ity of injection 00:00: [address] 40 2017-0 Yes Univers mg/0.8 mL 6-05 ity of injection 00:00: [address] 40 2017-0 Yes Univers mg/0.8 mL 6-05 ity of injection 00:00: [facility] 40 2017-0 Yes Univers mg/0.8 mL 6-05 ity of injection 00:00: [address] 40 2017-0 Yes Univers mg/0.8 mL 6-05 ity of injection 00:00: [address] 40 2017-0 Yes Univers mg/0.8 mL 6-05 ity of injection 00:00: [address] 40 2017-0 Yes Univers mg/0.8 mL 6-05 ity of injection 00:00: [address] 40 2017-0 Yes Univers mg/0.8 mL 6-05 ity of injection 00:00: [address] 40 2017-0 Yes Univers mg/0.8 mL 6-05 ity of injection 00:00: [place] [address] Medical Branch celecoxib 2017-0 Yes Univers 200 mg 5-09 ity of capsule 00:00: [place] [address] Medical Branch celecoxib 2017-0 Yes Univers 200 mg 5-09 ity of capsule 00:00: [place] [address] Medical Branch celecoxib 2017-0 Yes Univers 200 mg 5-09 ity of capsule 00:00: [place] [address] Medical Branch celecoxib 2017-0 Yes Univers 200 mg 5-09 ity of capsule 00:00: [place] [address] Medical Branch celecoxib 2017-0 Yes Univers 200 mg 5-09 ity of capsule 00:00: [place] [address] Medical Branch celecoxib 2017-0 Yes Univers 200 mg 5-09 ity of capsule 00:00: [place] [facility] celecoxib 2017-0 Yes Univers 200 mg 5-09 ity of capsule 00:00: [place] [address] Medical Branch celecoxib 2017-0 Yes Univers 200 mg 5-09 ity of capsule 00:00: [place] [address] Medical Branch celecoxib 2017-0 Yes Univers 200 mg 5-09 ity of capsule 00:00: [place] [address] Medical Branch celecoxib 2017-0 Yes Univers 200 mg 5-09 ity of capsule 00:00: [address] Branch celecoxib 2017-0 Yes Univers 200 mg 5-09 ity of capsule 00:00: [place] [address] Medical Branch gabapentin 2017-0 Yes Univers 600 mg 4-24 ity of tablet 00:00: [place] [address] Medical Branch gabapentin 2017-0 Yes Univers 600 mg 4-24 ity of tablet 00:00: [place] [address] Medical Branch gabapentin 2017-0 Yes Univers 600 mg 4-24 ity of tablet 00:00: [place] [address] Medical Branch gabapentin 2017-0 Yes Univers 600 mg 4-24 ity of tablet 00:00: [place] [address] Medical Branch gabapentin 2017-0 Yes Univers 600 mg 4-24 ity of tablet 00:00: [place] [address] Medical Branch gabapentin 2017-0 Yes Univers 600 mg 4-24 ity of tablet 00:00: [place] [address] Medical Branch gabapentin 2017-0 Yes Univers 600 mg 4-24 ity of tablet 00:00: [place] [address] Medical Branch gabapentin 2017-0 Yes Univers 600 mg 4-24 ity of tablet 00:00: [place] [address] Medical Branch gabapentin 2017-0 Yes Univers 600 mg 4-24 ity of tablet 00:00: [address] Branch gabapentin 2017-0 Yes Univers 600 mg 4-24 ity of tablet 00:00: [address] Branch gabapentin 2017-0 Yes Univers 600 mg 4-24 ity of tablet 00:00: [address] Vital Signs Vital Name Observation Time Observation Value Comments Source Systolic blood 2022-06-18 16:08:00 152 mm[Hg] Univer sity of pressure [facility] Diastolic blood 2022-06-18 16:08:00 99 mm[Hg] Unive rsity of pressure [facility] Heart rate 2022-06-18 16:08:00 96 /min [facility] Body temperature 2022-06-18 16:08:00 36.89 Johanna [facility] Res[facility] rate 2022-06-18 16:08:00 18 /min [facility] Body height 2022-06-18 16:08:00 167.6 cm [facility] Body weight 2022-06-18 16:08:00 73.483 kg [facility] BMI 2022-06-18 16:08:00 26.15 kg/m2 [facility] Oxygen saturation in 2022-06-18 16:08:00 94 /min [facility] blood by [facility] Pulse oximetry Branch Systolic blood 2020-09-01 20:17:00 134 mm[Hg] Univer sity of pressure [facility] Diastolic blood 2020-09-01 20:17:00 69 mm[Hg] Unive rsity of [facility] Heart rate 2020-09-01 20:17:00 99 /min Universi ty of [facility] Body height 2020-09-01 20:17:00 167.6 cm Universi ty of [facility] Body weight 2020-09-01 20:17:00 73.483 kg Universi ty [facility] BMI 2020-09-01 20:17:00 26.15 kg/m2 Universi ty [facility] Systolic blood 2020-09-01 20:17:00 134 mm[Hg] Univer sity of [facility] Diastolic blood 2020-09-01 20:17:00 69 mm[Hg] Unive rsity of [facility] Heart rate 2020-09-01 20:17:00 99 /min Universi ty of [facility] Body height 2020-09-01 20:17:00 167.6 cm Universi ty of [facility] Body weight 2020-09-01 20:17:00 73.483 kg Universi ty [facility] BMI 2020-09-01 20:17:00 26.15 kg/m2 Universi [facility] Procedures Procedure Date / Time Performing Clinician Source Performed XR KNEE 3 VW RIGHT 2022-06-18 17:40:38 Ashley [facility]ala [facility] CONSENT/REFUSAL FOR 2022-06-18 16:08:32 Doctor Unassigned, No Un [facility] DIAGNOSIS AND TREATMENT Name [facility] DME/SUPPLY JUSTIFICATION 2020-09-04 05:01:00 Doctor Unassigned, No [facility] Name [facility] Encounters Start End Encounter Admission Attending Care Care Encounter Source Date/Time Date/Time Type Type Clinicians Facility Department ID 2022-09-14 2022-09-14 Outpatient Lapin[facility] [id number] [place] 00:00:00 00:00:00 [id number] [facility] 2022-06-25 2022-06-25 Outpatient James SCHERER [facility] [id number] Univers 08:15:00 08:15:00 JENNIFER pham [facility] 2022-06-18 2022-06-18 Emergency X LUCY, [facility] ERT [id number] Univers 10:07:00 13:27:00 ASHLEY pham [facility] 2022-06-18 2022-06-18 [facility] [id number] Univers 10:07:00 13:27:00 Ashley CALIX [id number] i ty [facility] 4.2.7.2.[place] [id number] [address] 2022-06-18 2022-06-18 [facility] [id number] Univers 09:45:00 09:45:00 LINNEA vero [facility] 2022-06-18 2022-06-18 Telephone [facility] [id number] Univers 00:00:00 00:00:00 Jennifer PlateJoy [id number] it y of [place] 4.2.7.2.686 Corey as PIEDAD?BLEA [id number] [place] BAKER [address] [place] [address] 2022-06-16 2022-06-16 [facility]phone [facility] [id number] Univers 00:00:00 00:00:00 Jennifer PlateJoy [id number] it y of [place] 4.2.7.2.686 Corey as PIEDAD?BLEA [id number] [place] sa[place] BAKER [address] [place] [address] 2022-06-15 2022-06-15 Telephone [facility] [id number] Univers 00:00:00 00:00:00 Jennifer [employer] HEALTH [id number] it y of [place] 4.2.7.2.686 Corey as PIEDAD?BLEA [id number] Co saiar BAKER [address] [place] [address] 2020-09-12 2020-09-12 [facility] [id number] Univers 09:45:00 09:45:00 JENNIFER pham [facility] 2020-09-10 2020-09-10 Outpatient R DERIK, [facility] [id number] Univers 13:30:00 13:30:00 JENNIFER pham [facility] 2020-09-04 2020-09-04 Telephone [facility] [id number] 00:00:00 00:00:00 Linnea S Health [id number] Surgical 4.2.7.2.686 Specialti [id number] es [address] 2020-09-04 2020-09-04 Orders Doctor MICHELLE [id number] 00:00:00 00:00:00 Only Unassigned, SHELBY [id number] [place] [facility] 4.2.7.2.686 [id number] [facility] 2020-09-04 2020-09-04 Telephone [facility] [id number] Univers 00:00:00 00:00:00 Linnea S Health [id number] it y of Surgical 4.2.7.2.686 Corey as Specialti [phone] Co dical es 198 [facility] 2020-09-04 2020-09-04 Orders Doctor MICHELLE [id number] Univers 00:00:00 00:00:00 Only Unassigned, SHELBY 350.1.13.10 ity of [place] [facility] 4.2.7.2.686 Corey as [id number] [address] 2020-09-03 2020-09-03 Telephone [facility] [id number] Univers 00:00:00 00:00:00 Linnea S Health [id number] it y of Surgical 4.2.7.2.686 Corey as Specialti [id number] Co dical es 198 [facility] 2020-09-03 2020-09-03 Telephone [facility] [id number] 00:00:00 00:00:00 Linnea S Health [id number] Surgical 4.2.7.2.686 Specialti [id number] es [address] 2020-09-01 2020-09-01 Office [facility] [id number] Univers 15:08:01 15:23:01 Visit Linnea S Health [id number] it y of Surgical 4.2.7.2.686 Corey as Specialti [id number] Co dical es 198 [facility] 2020-09-01 2020-09-01 Office [facility] [id number] 15:08:01 15:23:01 Visit Linnea S Health [id number] Surgical 4.2.7.2.686 Specialti [id number] es [address] 2020-09-01 2020-09-01 [facility] [id number] Univers 15:00:00 15:00:00 [facility] 2020-09-01 2020-09-01 Telephone [facility] [id number] Univers 00:00:00 00:00:00 Linnea S Health 350.1.13.10 it y of Surgical 4.2.7.2.686 Corey as Specialti [id number] Co dical es 198 [facility] 2020-09-01 2020-09-01 [place] [facility] [id number] Univers 00:00:00 00:00:00 Linnea S Health 350.1.13.10 it y of Surgical 4.2.7.2.686 Corey as Specialti [id number] Co dical es 198 [facility] 2020-09-01 2020-09-01 [place] [facility] [id number] 00:00:00 00:00:00 Linnea S Health [id number] Surgical 4.2.7.2.686 Specialti [id number] es [address] 2020-09-01 2020-09-01 [place] [facility] [id number] 00:00:00 00:00:00 Linnea S Health [id number] Surgical 4.2.7.2.686 Specialti [id number] [address] Results This patient has no known results.
[2022-10-07 14:30] VITALS: BMI 27.3
[2022-10-07] MEDS ORDERED: ALBUTEROL 2.5 MG/3 ML NEB SOL IH PRN (14:54)
[2022-10-07] MEDS ORDERED: PNEUMOCOCCAL VACCINE 0.5 ML IMVAC ONE (15:00)
[2022-10-07] MEDS ORDERED: POLYETHYL GLY 3350 17 GM/DOSE PO PRN (15:00)
[2022-10-07] MEDS ORDERED: LOPERAMIDE HCL 2 MG CAPSULE PO PRN (15:00)
[2022-10-07] MEDS ORDERED: ONDANSETRON 4 MG (ODT) TAB PO PRN (15:00)
[2022-10-07] MEDS ORDERED: DIPHENHYDRAMINE 25 MG TAB/CAP PO PRN (15:00)
[2022-10-07] MEDS ORDERED: ACETAMINOPHEN 325 MG TABLET PO PRN (15:00)
[2022-10-07] MEDS ORDERED: ONDANSETRON 4 MG/2 ML VIAL IV PRN (15:00)
[2022-10-07 15:10] LABS: Absolute Lymphocytes (CBC) 0.7 K/uL (0.7-4.9); Hematocrit 35.7 % (39.6-49.0); Lymphocytes % 11.5 % (15.3-44.8); MCV 85.4 fL (80-100); MPV 7.6 fL (7.6-11.3); RBC Red Blood Cell Count 4.18 M/uL (4.33-5.43)
[2022-10-07 15:28] LABS: Albumin 2.8 g/dL (3.4-5.0); Bilirubin Direct 0.3 mg/dL (0-0.2); Bilirubin Indirect, Calculated 0.2 mg/dL (0.2-0.8); Bilirubin Total 0.5 mg/dL (0.2-1.0); Potassium 4.2 mEq/L (3.5-5.1); Protein, Total 6.6 g/dL (6.4-8.2)
[2022-10-07 15:43] LABS: Protime INR 0.95
[2022-10-07] MEDS: NACHLORIDE 0.45% 1,000 ML IV SCH (15:44)
--- NOTE | 2022-10-07 16:06 | RAD REPORT ---
[facility] DES[facility]07[facility]2022 3:19 pm CLINICAL HISTORY: inguinal hernia COMPARISON: Chest Single View dated 07/13/2021; Chest Single View dated 11/28/2020; Chest Single View d ated 05/30/2019; Chest Pa And Lat (2 Views) dated 05/29/2019; Abdomen Pelvis W Contrast dated 2 TECHNIQUE: Portable AP view of the chest. FINDINGS: Mildly progressive right basilar opacities, with background stable atelectasis. No pneumo thorax or effusion. The cardiomediastinal contours are unremarkable. IMPRESSION: Mildly progressive right basilar opacities, may indicate progressive atelectasis or supe rimposed pneumonia.
[2022-10-07] MEDS: ALBUTEROL 2.5 MG/3 ML NEB SOL IH SCH (20:30)
[2022-10-07] MEDS: IPRATROPIUM BROM 0.5MG/2.5ML IH SCH (20:30)
[2022-10-07] MEDS ORDERED: HYDROCODONE/APAP 10/325 TAB PO PRN (21:24)
[2022-10-08] MEDS: ALBUTEROL 2.5 MG/3 ML NEB SOL IH SCH ×4 (02:00→20:00)
[2022-10-08] MEDS: IPRATROPIUM BROM 0.5MG/2.5ML IH SCH ×4 (02:00→20:00)
[2022-10-08 04:06] LABS: Absolute Lymphocytes (CBC) 0.9 K/uL (0.7-4.9); Lymphocytes % 15.1 % (15.3-44.8); MCV 85.7 fL (80-100); MPV 7.6 fL (7.6-11.3); RBC Red Blood Cell Count 3.97 M/uL (4.33-5.43)
[2022-10-08 04:19] LABS: Magnesium 2.1 mg/dL (1.6-2.4); Potassium 4.1 mEq/L (3.5-5.1)
[2022-10-08] MEDS: GABAPENTIN 400 MG CAP PO SCH ×3 (07:37→20:49)
[2022-10-08] MEDS ORDERED: Ringers Lactate 1,000 ML IV ONE ×2 (08:46→11:48)
[2022-10-08] MEDS ORDERED: CEFAZOLIN SODIUM 2 GM/VIAL ONE (09:05)
[2022-10-08] MEDS ORDERED: ROCURONIUM 50 MG/5 ML VIAL IV ONE (10:08)
[2022-10-08] MEDS ORDERED: propofoL 200 MG/20 ML VIAL IV ONE (10:08)
[2022-10-08] MEDS ORDERED: LIDOCAINE 2% MPF 5 ML VIAL ONE (10:08)
[2022-10-08] MEDS ORDERED: ONDANSETRON 4 MG/2 ML VIAL ONE (10:08)
[2022-10-08] MEDS ORDERED: FENTANYL CITR 100 MCG/2 ML ONE ×2 (10:08→13:19)
[2022-10-08] MEDS ORDERED: dexAMETHasone 4 MG/ML VIAL ONE (10:10)
[2022-10-08] MEDS ORDERED: GLYCOPYRROLATE 0.2 MG/ML SYR ONE (11:36)
[2022-10-08] MEDS ORDERED: EPINEPHRINE/PF 1 MG/ML AMP ONE (11:36)
--- NOTE | 2022-10-08 12:30 | P.OP ---
Date of Service: 10/08/22 Preop diagnosis: Incarcerated, recurrent right inguinal hernia Postop diagnosis: Same Procedure performed: Laparoscopic assisted repair of incarcerated recurrent right inguinal hernia Surgeon: Padilla Krueger MD Project Control Manager: None Estimated blood loss: Minimal Specimen: Hernia contents Findings: As above Anesthesia: General Complications: None Drains: None Fluids and blood products: Nonapplicable Disposition: Recovery room Operative note: Patient brought to the OR and placed in supine position. General anesthesia begun. Patient prepped and draped in the usual sterile fashion. Marcaine 0.5% infiltrated locally. 1 cm incision made with a 15 blade in the supraumbilical midline incision. Subcu tissue divided. Fascia id entified and divided. #1 Vicryl stay suture placed. Peritoneal cavity entered with sharp and blunt dissection. 12 mm trocar placed into the peritoneal cavity under direct vision. Pneumoperitoneum established. 5 mm trocar placed in the left lower quadrant. And another 5 mm trocar placed in the right middle quadrant. Laparoscopy revealed incarcerated right inguinal hernia with omentum present in it. Majority of the omentum was reduced into the peritoneal cavity without difficulty. There were attachments inside the hernia that were difficult to dissect. At this point, LigaSure was used to divide the omentum that was stuck into the hernia. The bowel was healthy and there was no other evidence of injury or bleeding noted in the peritoneal cavity. A 4 cm oblique incision was made in the right groin over the hernia site. Subcutaneous tissue divided. Tio's fascia identified and divided. Previous hernia repair mesh identified. The mesh was opened. Portion of the mesh was excised to expose the internal ring and the hernia site. Hernia was a direct defect near the pubic tubercle. A large Marlex mesh plug was placed in the hernia defect and secured to the conjoined tendon, pubic tubercle and the shelving edge with VersaTack stapler. The mesh defect was closed with a running #1 Prolene suture. Then laparoscopy with was performed. Peritoneum from the lateral aspect of the abdominal wall was mobilized to cover the mesh. Sorber tack was used to secure the mesh to the superficial peritoneum on the medial aspect. Complete coverage was accomplished. Subsequently all trocars were removed under direct vision. There was no evidence of bleeding or bowel injury prior to removal of the trocars. Stay sutures were tied to each other to reapproximate the fascial defe ct. Subcutaneous was irrigated and bleeding controlled with cautery. 3-0 chromic used to reapproximate subcutaneous tissue. Leanne used to close skin. Sterile dressing applied and patient awakened. Patient taken to recovery room in good general condition. CC: Dr. Manzano's office
[2022-10-08] MEDS ORDERED: HYDROMORPHONE HCL 1 MG/ML INJ IV PRN (12:36)
[2022-10-08] MEDS ORDERED: HYDROCODONE/APAP 7.5/325 MG TAB PO PRN (12:36)
--- NOTE | 2022-10-08 15:18 | EKG ---
Test Date: 2022-10-07 Test Time: 16:12:08 Gelatin Powder Mixer: ROGERS MEASUREMENT RESULTS: Intervals: Rate: 81 NE: 182 QRSD: 108 QT: 466 QTc: 541 [place]: P: 73 NE: 182 QRS: -9 T: 52 INTERPRETIVE STATEMENTS: Normal sinus rhythm Cannot rule out Anterior infarct, age undetermined Prolonged QT Abnormal ECG Compared to ECG 07/13/2021 17:54:15 No significant changes Electronically Signed On 10-08-22 15:17:53 CDT by Haider Pereira
[2022-10-08] MEDS ORDERED: dexAMETHasone 4 MG/ML VIAL IM ONE (15:49)
[2022-10-08] MEDS ORDERED: levoFLOXacin 500 MG TAB PO SCH (17:00)
[2022-10-08] MEDS ORDERED: ATORVASTATIN 10 MG TAB PO SCH (21:00)
[2022-10-09] MEDS: NACHLORIDE 0.45% 1,000 ML IV SCH (00:20)
[2022-10-09] MEDS: ALBUTEROL 2.5 MG/3 ML NEB SOL IH SCH (01:40)
[2022-10-09] MEDS: IPRATROPIUM BROM 0.5MG/2.5ML IH SCH (01:40)
[2022-10-09 04:11] LABS: Absolute Lymphocytes (CBC) 0.2 K/uL (0.7-4.9); Hematocrit 35.5 % (39.6-49.0); Lymphocytes % 3.1 % (15.3-44.8); MCV 85.1 fL (80-100); MPV 7.7 fL (7.6-11.3); RBC Red Blood Cell Count 4.18 M/uL (4.33-5.43)
[2022-10-09 04:24] LABS: Magnesium 2.2 mg/dL (1.6-2.4); Potassium 4.6 mEq/L (3.5-5.1)
[2022-10-09 04:53] VITALS: BP 100/55; TEMP 97.9
--- NOTE | 2022-10-09 10:33 | P.DS ---
Admission Date: 10/07/22 Discharge Date: 10/09/22 Disposition: AMA-LEFT AGAINST MEDICAL ADVIC Discharge Condition: GOOD Hospital Course: REYNOLD IS AN ANXIOUS, HYPER, UNCONTROLLABLE MAN WHO DOES NOT LISTEN TO YOU UNLESS YOU REPEAT A SENTENCE 3 TIMES. HE HAD LARGE HERNIA SO WE HAD TO DO URGENT SURGERY AND HE WANTED TO GO HOME RIGHT AWAY. HE HAD HYPOXIA AND SMALL PNEUMONIA IN ADDITION TO SEVERE COPD FROM HEAVY SMOKING. PARACTE DID NOT SEND ME FORM TO SIGN UNTIL ABOUT 1025 THIS AM. HE WAS ASKED TO STAY UNTIL THEN BUT HE SIGNED AGAINST MEDICAL ADVISE. I CALLED HIM NOW TO LET HIM KNOW THAT I CALLED IN [facility] FOR HIM AND HE WILL GET OXYGEN. HE WILL COME TO OFFICE NEXT WEEK. Vital Signs/Physical Exam: Temp Pulse Resp BP Pulse Ox 97.9 F 86 18 100/55 L 95 10/09/22 04:00 10/09/22 04:00 10/09/22 04:00 10/09/22 04:00 10/09/22 04:00 Laboratory Data at Discharge: WBC 7.60 thou/uL (4.3-10.9) 10/09/22 03:34 Hgb 11.1 g/dL (13.6-17.9) L 10/09/22 03:34 Hct 35.5 % (39.6-49.0) L 10/09/22 03:34 Plt Count 183 thou/uL (152-406) 10/09/22 03:34 PT 11.3 SECONDS (9.2-12.8) 10/07/22 14:52 INR 0.95 10/07/22 14:52 APTT 23.0 SECONDS (21.7-34.4) 10/07/22 14:52 Sodium 133 mEq/L (136-145) L 10/09/22 03:34 Potassium 4.6 mEq/L (3.5-5.1) 10/09/22 03:34 BUN 18 mg/dL (7-18) 10/09/22 03:34 Creatinine 0.78 mg/dL (0.70-1.30) 10/09/22 03:34 Glucose 152 mg/dL (74-106) H 10/09/22 03:34 Magnesium 2.2 mg/dL (1.6-2.4) 10/09/22 03:34 Total Bilirubin 0.5 mg/dL (0.2-1.0) 10/07/22 14:52 AST 25 U/L (15-37) 10/07/22 14:52 ALT 22 U/L (16-61) 10/07/22 14:52 Alkaline Phosphatase 119 U/L (45-117) H 10/07/22 14:52 Home Medications: Adalimumab [Humira 40 MG/0.8 ML*] 40 mg SQ SEECOM 05/27/19 Gabapentin [Neurontin] 800 mg PO TID 05/27/19 Hydrocodone Bit/Acetaminophen [Hydrocodon-Acetaminophn 10-325] 1 each PO QIDP PRN 05/27/19 Pravastatin Sodium [Pravachol] 40 mg PO BEDTIME 05/27/19 Levofloxacin [Levaquin] 500 mg PO DAILY #14 tablet 07/14/21 levoFLOXacin [Levaquin] 500 mg PO DAILY #10 tab 10/08/22 New Medications: levoFLOXacin [Levaquin] 500 mg PO DAILY #10 tab Physician Discharge Instructions: Remove outer dressing in 2 days and shower Dry gauze and Band-Aid to wound daily Follow-up my office next , call for appointment Patient given prescription for George 7.5 and Colace called into the pharmacy Scrotal support as ordered Incentive spirometry as directed Ice pack No heavy lifting or strenuous exercise Diet: AHA Activity: No lifting more than 10 lbs Followup: Padilla Krueger MD [ACTIVE - CAN ADMIT] - 10/14/22 (call to schedule an appointment)
[2022-10-09 14:43] VITALS: O2SAT 97
[2022-10-14] MEDS ORDERED: ADALIMUMAB SQ SCH (09:00)
== END 2022-10-09 08:31 | disposition left against medical advice (07) ==
LOC: 4TH 13:50
PROVIDERS: ADMIT Internal Medicine; ATTEND Internal Medicine
PROC: 0YU54JZ Supplement Right Inguinal Region with Synthetic Substitute, Percutaneous Endoscopic Approach (ICD-10-PCS; principal; 2022-10-08 10:00)
DX: K40.31 Unilateral inguinal hernia, with obstruction, without gangrene, recurrent (principal)
CPT/HCPCS: 93005; 85025 ×3; 80048 ×3; 36415 ×2; 83735 ×2; 85610; 80076; 88302; 85730; 71046; 94640; 49651; J2704; J1100 ×2; J0171; J7613 ×2; J7644 ×2; J2001; J3010 ×2; J2405; J7120 ×2; G0378

== ENCOUNTER 2022-11-26 11:24 | Inpatient (IN) | payer OTHER ==
--- OUTSIDE RECORDS SUMMARY | 2022-11-26 11:43 | XMS REPORT | Continuity of Care Document ---
:1955 Author Organization [facility] t Address [address] [place] [address] [place] [id number] Care Team Providers Name Role Phone ANKURALLENJAYCOB Primary Care Physician Unavailable Albert Attending Clinician Unavailable JENNIFER SCHERER Attending Clinician Unavailable ASHLEY AYALA Attending Clinician Unavailable Ashley Ayala MD Attending Clinician LINNEA TORRES Attending Clinician Unavailable Jennifer Scherer MD Attending Clinician Linnea Kimball Attending Clinician Doctor Unassigned, [place] Attending Clinician Unavailable Albert Admitting Clinician Unavailable ASHLEY AYALA Admitting Clinician Unavailable Payers Payer Name Policy Type Policy Number Effective Date Expiration Date S jeanmarie MEDICARE [place]: [id number] 2008 [place] 00:00:00 MEDICARE PART A [id number] 2008 \T\ B 00:00:00 Problems Condition Condition Condition Status Onset Resolution Last Treating Co mments Source Name Details Category Date Date Treatment Clinician Date No known No known Disease Unive rs active active ity of problems problems [facility] Allergies, Adverse Reactions, Alerts Allergy Allergy Status Severity Reaction(s) Onset Inactive Treating Comm ents Source Name Type Date Date Clinician NO KNOWN Drug Active Univers ALLERGIE Class ity of S [facility] Social History Social Habit Start Date Stop Date Quantity Comments Source History of Smokes tobacco University of tobacco use daily [facility] Exposure to 2022-06-08 2022-06-18 Not sure [facility] SARS-CoV-2 00:00:00 10:08:00 [facility] (event) Branch Tobacco use and 2020-09-01 2020-09-01 Smokeless tobacco Un iversity of exposure 00:00:00 00:00:00 non-user [facility] Sex Ass[birth year] Universit y of 00:00:00 00:00:00 [facility] Smoking Status Start Date Stop Date Source Smokes tobacco daily 2020-09-01 00:00:00 Univers ity of [facility] Medications Ordered Filled Start Stop Current Ordering Indication Dosage Frequency Signature Comments Components Source Medication Medication Date Date Medication? Clinician (SIG) Name Name dexamethaso 2022- No 10mg 10 mg, Uni vers ne sod phos 06-18 Intramuscu i ty of PF 18:00: 18:09 lar, ONCE, [place] injection 00 :00 1 dose, On Medi willian 10 mg [facility] 06/18/22 at 1200, 1 mL ketorolac 2022- No 10mg 10 mg, Unive rs (TORADOL) 06-1810 Oral, ONCE ity of tablet 10 18:00: 16:57 NOW, 1 [place] mg 00 :00 dose, On Medical [facility] 06/18/22 at 1200, ANGÉLICA acetaminoph 2022- No 975mg 975 mg, U nivers en 06-1810 Oral, ONCE ity of (TYLENOL) 18:00: 16:57 NOW, 1 [place] tablet 975 00 :00 dose, On Medic al mg [facility] 06/18/22 at 1200, ANGÉLICA FENTanyl PF 2022- No 50ug 50 mcg, Un joleen (SUBLIMAZE 06-18 Intramuscu it y of (PF)) 17:00: 16:50 lar, ONCE, [place] injection 00 :00 1 dose, On Medi willian 50 mcg [facility] 06/18/22 at 1100, STAT meloxicam 2022- Yes [id number] 15mg Take 1 Univers 15 mg 06-18 9109 tablet by ity of tablet 00:00: mouth in [place] 00 the Medical morning. Branch predniSONE 2022-0 Yes [id number] Take 2 Univers 20 mg 3-10 9109 tablets PO ity of tablet 00:00: daily [place] 00 Medical Branch acetaminoph 2022-0 Yes [id number] 650mg Take 1 Univers en (TYLENOL 3-10 [...] 6-05 ity of injection 00:00: [place] [facility] HUMIRA 40 2017-0 Yes Univers mg/0.8 mL 6-05 ity of injection 00:00: [address] 40 2017-0 Yes Univers mg/0.8 mL 6-05 ity of injection 00:00: [address] 40 2017-0 Yes Univers mg/0.8 mL 6-05 ity of injection 00:00: [address] 40 2017-0 Yes Univers mg/0.8 mL 6-05 ity of injection 00:00: [facility] 40 2017-0 Yes Univers mg/0.8 mL 6-05 ity of injection 00:00: [address] 40 2017-0 Yes Univers mg/0.8 mL 6-05 ity of injection 00:00: [address] 40 2017-0 Yes Univers mg/0.8 mL 6-05 ity of injection 00:00: [address] 40 2017-0 Yes Univers mg/0.8 mL 6-05 ity of injection 00:00: [address] 40 2017-0 Yes Univers mg/0.8 mL 6-05 ity of injection 00:00: [address] 40 2017-0 Yes Univers mg/0.8 mL 6-05 ity of injection 00:00: [place] [address] Medical Branch celecoxib 2017-0 Yes Univers 200 mg 5-09 ity of capsule 00:00: [place] [address] Medical Branch celecoxib 2017-0 Yes Univers 200 mg 5-09 ity of capsule 00:00: [place] [address] Medical Branch celecoxib 2017-0 Yes Univers 200 mg 5-09 ity of capsule 00:00: [place] [address] Medical Branch celecoxib 2017-0 Yes Univers 200 mg 5-09 ity of capsule 00:00: [place] [address] Medical Branch celecoxib 2017-0 Yes Univers 200 mg 5-09 ity of capsule 00:00: [place] [address] Medical Branch celecoxib 2017-0 Yes Univers 200 mg 5-09 ity of capsule 00:00: [place] [facility] celecoxib 2017-0 Yes Univers 200 mg 5-09 ity of capsule 00:00: [place] [address] Medical Branch celecoxib 2017-0 Yes Univers 200 mg 5-09 ity of capsule 00:00: [place] [address] Medical Branch celecoxib 2017-0 Yes Univers 200 mg 5-09 ity of capsule 00:00: [place] [address] Medical Branch celecoxib 2017-0 Yes Univers 200 mg 5-09 ity of capsule 00:00: [address] Branch celecoxib 2017-0 Yes Univers 200 mg 5-09 ity of capsule 00:00: [place] [address] Medical Branch gabapentin 2017-0 Yes Univers 600 mg 4-24 ity of tablet 00:00: [place] [address] Medical Branch gabapentin 2017-0 Yes Univers 600 mg 4-24 ity of tablet 00:00: [place] [address] Medical Branch gabapentin 2017-0 Yes Univers 600 mg 4-24 ity of tablet 00:00: [place] [address] Medical Branch gabapentin 2017-0 Yes Univers 600 mg 4-24 ity of tablet 00:00: [place] [address] Medical Branch gabapentin 2017-0 Yes Univers 600 mg 4-24 ity of tablet 00:00: [place] [address] Medical Branch gabapentin 2017-0 Yes Univers 600 mg 4-24 ity of tablet 00:00: [place] [address] Medical Branch gabapentin 2017-0 Yes Univers 600 mg 4-24 ity of tablet 00:00: [place] [address] Medical Branch gabapentin 2017-0 Yes Univers 600 mg 4-24 ity of tablet 00:00: [place] [address] Medical Branch gabapentin 2017-0 Yes Univers 600 mg 4-24 ity of tablet 00:00: [address] Branch gabapentin 2017-0 Yes Univers 600 mg 4-24 ity of tablet 00:00: [address] Branch gabapentin 2017-0 Yes Univers 600 mg 4-24 ity of tablet 00:00: [address] Vital Signs Vital Name Observation Time Observation Value Comments Source Systolic blood 2022-06-18 16:08:00 152 mm[Hg] Univer sity of pressure [facility] Diastolic blood 2022-06-18 16:08:00 99 mm[Hg] Unive rsity of pressure [facility] Heart rate 2022-06-18 16:08:00 96 /min [facility] Body temperature 2022-06-18 16:08:00 36.89 Johanna [facility] [place] [facility] Res[facility] rate 2022-06-18 16:08:00 18 /min [facility] [place] [facility] Body height 2022-06-18 16:08:00 [facility] Body weight 2022-06-18 16:08:00 73.483 [facility] BMI 2022-06-18 16:08:00 26.15 kg/m2 [facility] Oxygen saturation in 2022-06-18 16:08:00 94 /min [facility] blood by [facility] Pulse oximetry Branch Systolic blood 2020-09-01 20:17:00 134 mm[Hg] Univer sity of pressure [facility] Diastolic blood 2020-09-01 20:17:00 69 mm[Hg] Unive rsity of [facility] Heart rate 2020-09-01 20:17:00 99 /min Universi ty of [facility] Body height 2020-09-01 20:17:00 167.6 cm Universi ty of [facility] Body weight 2020-09-01 20:17:00 73.483 kg Universi ty [facility] BMI 2020-09-01 20:17:00 26.15 kg/m2 Universi ty [facility] Systolic blood 2020-09-01 20:17:00 134 mm[Hg] Univer sity of [facility] Diastolic blood 2020-09-01 20:17:00 69 mm[Hg] Unive rsity of [facility] Heart rate 2020-09-01 20:17:00 99 /min Universi ty of [facility] Body height 2020-09-01 20:17:00 167.6 cm Universi ty of [facility] Body weight 2020-09-01 20:17:00 73.483 kg Universi ty [facility] BMI 2020-09-01 20:17:00 26.15 kg/m2 Universi [facility] Procedures Procedure Date / Time Performing Clinician Source Performed XR KNEE 3 VW RIGHT 2022-06-18 17:40:38 Ashley Ayala [facility] CONSENT/REFUSAL FOR 2022-06-18 16:08:32 Doctor Unassigned, No Un [facility] DIAGNOSIS AND TREATMENT Name [facility] DME/SUPPLY JUSTIFICATION 2020-09-04 05:01:00 Doctor Unassigned, No [facility] Name [facility] Encounters Start End Encounter Admission Attending Care Care Encounter Source Date/Time Date/Time Type Type Clinicians Facility Department ID 2022-09-14 2022-09-14 Outpatient Lapin[facility] [id number] [place] 00:00:00 00:00:00 [id number] [facility] 2022-06-25 2022-06-25 Outpatient James SCHERER [facility] [id number] Univers 08:15:00 08:15:00 JENNIFER pham [facility] 2022-06-18 2022-06-18 Emergency X LUCY, [facility] ERT [id number] Univers 10:07:00 13:27:00 ASHLEY pham [facility] 2022-06-18 2022-06-18 [facility] [id number] Univers 10:07:00 13:27:00 Ashley CALIX [id number] i ty [facility] [place] [id number] [address] 2022-06-18 2022-06-18 [facility] [id number] Univers 09:45:00 09:45:00 LINNEA vero [facility] 2022-06-18 2022-06-18 Telephone [facility] [id number] Univers 00:00:00 00:00:00 Jennifer [employer] [id number] it y of [place] 4.2.7.2.686 Corey as PIEDAD?BLEA [id number] Vt saira BAKER [address] [place] [address] 2022-06-16 2022-06-16 Telephone [facility] [id number] Univers 00:00:00 00:00:00 Jennifer [employer] [id number] it y of [place] [id number] Corey as PIEDAD?BLEA [id number] Vt saira BAKER [address] [place] [address] 2022-06-15 2022-06-15 Telephone [facility] [id number] Univers 00:00:00 00:00:00 Jennifer Ivaldi [facility]ALTH [id number] it y of [place] 4.2.7.2.686 Corey as PIEDAD?BLEA [phone] Vt saira BAKER [address] [place] [address] 2020-09-12 2020-09-12 [facility] [id number] Univers 09:45:00 09:45:00 JENNIFER pham [facility] 2020-09-10 2020-09-10 Outpatient R DERIK, [facility] [id number] Univers 13:30:00 13:30:00 JENNIFER pham [facility] 2020-09-04 2020-09-04 Telephone [facility] [id number] 00:00:00 00:00:00 Linnea S Health [id number] Surgical 4.2.7.2.686 Specialti [id number] es [address] [place] 2020-09-04 2020-09-04 Orders Doctor MICHELLE [id number] 00:00:00 00:00:00 Only Unassigned, SHEL[place] 350.1.13.10 [place] [facility] 4.2.7.2.686 [id number] [facility] 2020-09-04 2020-09-04 Telephone [facility] [id number] Univers 00:00:00 00:00:00 Linnea S Health [id number] it y of Surgical 4.2.7.2.686 Corey as Specialti [id number] Vt dical es 198 [facility] 2020-09-04 2020-09-04 Orders Doctor MICHELLE 1.2.840.114 [id number] Univers 00:00:00 00:00:00 Only Unassigned, SHELBY 350.1.13.10 ity of [place] [facility] 4.2.7.2.686 Corey as [id number] [address] 2020-09-03 2020-09-03 Telephone [facility] [id number] Univers 00:00:00 00:00:00 Linnea S Health [id number] it y of Surgical 4.2.7.2.686 [place] as Specialti [id number] Vt dical es 198 [facility] 2020-09-03 2020-09-03 Telephone [facility] [id number] 00:00:00 00:00:00 Linnea S Health [id number] Surgical 4.2.7.2.686 Specialti [id number] es [address] [place] 2020-09-01 2020-09-01 Office [facility] 1.2.840.114 [id number] Univers 15:08:01 15:23:01 Visit Linnea S Health 350.1.13.10 it y of Surgical 4.2.7.2.686 [place]y as Specialti [id number] Vt dical es 198 [facility] 2020-09-01 2020-09-01 Office [facility] [id number] 15:08:01 15:23:01 Visit Linnea S Health 350.1.13.10 Surgical 4.2.7.2.686 Specialti [id number] es [address] [place] 2020-09-01 2020-09-01 [facility] [id number] Univers 15:00:00 15:00:00 [facility] 2020-09-01 2020-09-01 Telephone [facility] [id number] Univers 00:00:00 00:00:00 Linnea S Health 350.1.13.10 it y of Surgical 4.2.7.2.686 [place]y as Specialti [id number] Vt dical es 198 [facility] 2020-09-01 2020-09-01 [place] [facility] [id number] Univers 00:00:00 00:00:00 Linnea S Health 350.1.13.10 it y of Surgical 4.2.7.2.686 Corey as Specialti [id number] Vt dical es 198 [facility] 2020-09-01 2020-09-01 [place] [facility] [id number] 00:00:00 00:00:00 Linnea S Health 350.1.13.10 Surgical 4.2.7.2.686 Specialti [id number] es [address] [place] 2020-09-01 2020-09-01 [place] [facility] [id number] 00:00:00 00:00:00 Linnea S Health 350.1.13.10 Surgical 4.2.7.2.686 Specialti [id number] [address] [place] Results This patient has no known results.
[2022-11-26 11:52] LABS: Absolute Lymphocytes (CBC) 0.9 K/uL (0.7-4.9); Lymphocytes % 13.3 % (15.3-44.8); MCV 86.8 fL (80-100); MPV 7.4 fL (7.6-11.3); Platelets 143 thou/uL (152-406); RBC Red Blood Cell Count 4.38 M/uL (4.33-5.43)
[2022-11-26 11:58] LABS: Protime INR 1.04
[2022-11-26 12:12] LABS: Albumin 3.2 g/dL (3.4-5.0); Bilirubin Total 0.6 mg/dL (0.2-1.0); Potassium 3.9 mEq/L (3.5-5.1); Protein, Total 7.1 g/dL (6.4-8.2); Troponin High Sensitivity 19.1 pg/mL (<58.9)
[2022-11-26 12:14] LABS: Barbiturates NEGATIVE (NEGATIVE); Benzodiazepines NEGATIVE (NEGATIVE); Cocaine NEGATIVE (NEGATIVE); METHAMPHETAM NEGATIVE (NEGATIVE); Methadone NEGATIVE (NEGATIVE); Opiates POSITIVE (NEGATIVE); Phencyclidine NEGATIVE (NEGATIVE); Specific Gravity 1.025 (1.005-1.030); THC Cannibis NEGATIVE (NEGATIVE); Urine Bacteria None Seen /HPF (<20); Urine Bilirubin NEGATIVE (Negative); Urine Blood 1+ (Negative); Urine Clarity Clear (Clear); Urine Color Yellow (Yellow); Urine Glucose NEGATIVE (Negative); Urine Mucus Slight /HPF (None Seen); Urine Protein 1+ (Negative); Urine RBC 21-50 /HPF (None Seen); Urine Urobilinogen Normal (Normal)
[2022-11-26 12:29] LABS: Anisocytosis 1+; Blood Morphology Comment NOTED (NOT SEEN); Platelet Estimate ADEQ; White Blood Cell Scan OK (OK)
--- NOTE | 2022-11-26 13:14 | RAD REPORT ---
EXAM DESCRIPTION: CT - Head C Spine Cap W Con - 11/26/2022 12:30 pm CLINICAL HISTORY: fall, AMS COMPARISON: Abdomen Pelvis W Contrast dated 07/13/2021; Chest Pa And Lat (2 Views) dated 10/07/2022; Chest For Pe Angio dated 06/03/2019 TECHNIQUE: Head and cervical spine CT images were obtained without IV contrast. Chest, abdomen, and pelvis CT images were obtained following intravenous administration of 90 mL Isovue-300. Multiplanar reformats were generated and reviewed. All CT scans are performed using dose optimization technique as appropriate and may include automated exposure control or mA/KV adjustment according to patient size. FINDINGS: CT HEAD: No intracranial hemorrhage, mass effect, or edema. No evidence of acute territorial infarct. No midli ne shift or abnormal fluid collection. The ventricles are normal in caliber and configuration for age . Basal cisterns are patent. Mastoid aircells and paranasal sinuses are clear. No acute skull fractur e. CT CERVICAL SPINE: No acute cervical spine fracture or subluxation. Vertebral body heights are well maintained. Mild sca ttered degenerative changes. No hyperattenuating canal hematoma. Prevertebral and paraspinous soft ti ssues are unremarkable. CT CHEST: No pneumothorax, pulmonary contusion or localized collection. No mediastinal hematoma and the aorta a nd pulmonary arteries are unremarkable. No chest will mass or abnormal axillary finding. Multiple hea ling right rib fractures. Chronic appearing scarring in the dependent right upper lobe near the apex. Additional segmental airspace opacification with volume loss involving most of the right lower lobe. The volume loss appears progressive since the CT chest. Trace bilateral pleural effusions. CT ABDOMEN/ PELVIS: No evidence of traumatic injury to solid abdominal viscera. Gallbladder and biliary tree are unremark able. No bowel injury or significant finding. No free air, free fluid or abnormal fat stranding. Righ t inguinal hernia with surgical clips along the hernia tract again seen. There is soft tissue density opacification along the hernia, whereas previously is demonstrated fat content. This could relate to presence of a nondistended bowel loop or fluid within the hernia sac. Incidentally noted small calci fied granulomas of the liver and spleen. No urinary bladder abnormality. No significant bony finding. IMPRESSION: Multiple healing right rib fractures, likely subacute or chronic in nature. No other acute traumatic findings. Soft tissue opacification along the previously visualized right inguinal hernia, could relate to pres ence of a nondistended bowel loop or fluid within the hernia sac. Trace bilateral pleural effusions. Dependent airspace opacification in the right lung, suggestive of atelectasis, with some scarring near the apex.
--- NOTE | 2022-11-26 13:24 | RAD REPORT ---
EXAM DESCRIPTION: RAD - Femur Left - 11/26/2022 12:50 pm CLINICAL HISTORY: PAIN COMPARISON: No comparisons TECHNIQUE: Left femur, 2 views. FINDINGS: No fracture is identified. Left total hip arthroplasty in place. No evidence of complicati ons. Mild tricompartmental knee osteoarthritic changes, most notably with marginal patellar spurring. There is no dislocation or periosteal reaction noted. No acute or suspicious bony finding. Vascular calcifications. IMPRESSION: No acute osseus abnormality. Uncomplicated appearance of left total hip arthroplasty. Francoise orlando tricompartmental knee osteoarthritic changes.
--- NOTE | 2022-11-26 14:55 | RAD REPORT ---
EXAM DESCRIPTION: RAD - Femur Right - 11/26/2022 12:50 pm CLINICAL HISTORY: shortened;Pain COMPARISON: Femur Left dated 11/26/2022; Head C Spine Cap W Con dated 11/26/2022 TECHNIQUE: Right femur, 2 views. FINDINGS: Right total hip and total knee arthroplasties. Periprosthetic fracture involving the righ t greater trochanter. This demonstrates predominantly corticated margins on CT, and is favored to be chronic. There is no dislocation or periosteal reaction noted. No acute or suspicious bony finding. 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
--- NOTE | 2022-11-26 17:28 | EDPHYS ---
Physician Documentation [facility] Name: Vikas Sharma Age: 66 yrs Sex: Male : 1955 Arrival Date: 11/26/2022 Time: 11:24 Bed 5 Private MD: ED Physician Christopher Martínez HPI: 11/26 11:38 This 66 yrs old Male presents to ER via EMS with complaints of Altered Mental Status, rn Fall Injury. 11:38 Details of fall: The patient fell from an upright position. Onset: The symptoms/episode rn began/occurred at an unknown time. Associated injuries: The patient sustained no obvious injury. Severity of symptoms: At their worst the symptoms were mild, in the emergency department the symptoms are unchanged. The patient has experienced similar episodes in the past. EMS reports called out for uncomplicated fall "without injury". reports frequent falls, but patient could not get up. told EMS that he was feeling tired yesterday, but no fever or infectious symptoms. Pt initially was going to refuses transport after helped up, but became combative and given 2mg ativan by EMS. Pt now sedated, groans to painful stimulation. . Historical: - Allergies: 11:30 No Known Allergies; ld1 - PMHx: 11:30 Psoriatic Arthritis; Hypertension; High Cholesterol; COPD; ld1 - Immunization history:: Adult Immunizations up to date. - Social history:: Smoking status: Patient reports the use of cigarette tobacco products, smokes one-half pack cigarettes per day. - Family history:: not pertinent. - Hospitalizations: : No recent hospitalization is reported. ROS: 11:38 Unable to obtain ROS due to sedated after ativan administration by EMS. rn Exam: 11:38 Constitutional: This is a well developed, well nourished patient who is somnolent, rn grimaces and groans to sternal rub Head/Face: Normocephalic, atraumatic. ENT: No oral trauma noted Cardiovascular: Regular rate and rhythm. No pulse deficits. Respiratory: No increased work of breathing, no retractions or nasal flaring. Abdomen/GI: Soft, non-tender Back: No spinal tenderness. No open wounds Skin: Warm, dry MS/ Extremity: Pulses equal, no cyanosis. Right leg a little shortened and externally rotated Neuro: Somnolent and sedated Vital Signs: 11:31 BP 104 / 70; Pulse 77; Resp 15; Temp 97.8; Pulse Ox 98% on R/A; Weight 99.79 kg; Height ld1 6 ft. 0 in. ; 12:53 BP 106 / 65; Pulse 85; Resp 17; Pulse Ox 95% on R/A; hb 14:07 BP 108 / 72; Pulse 87; Resp 17; Pulse Ox 94% on R/A; hb 14:30 Pulse Ox 86% on R/A; hb 14:47 BP 115 / 73; Pulse 86; Resp 16; Pulse Ox 97% on 4 lpm NC; ld1 15:39 BP 127 / 75; Pulse 87; Resp 15; Pulse Ox 94% 4 lpm ; hb 16:16 BP 125 / 74; Pulse 88; Resp 15; Pulse Ox 95% on 4 lpm NC; hb 17:28 BP 122 / 75; Pulse 88; Resp 19; Pulse Ox 99% on R/A; ld1 18:01 Pulse Ox 97% ; hb 18:42 BP 131 / 74; Pulse 74; Resp 18; Pulse Ox 100% on BiPAP; hb 20:00 BP 137 / 87; Pulse 81; Resp 24; Pulse Ox 100% on BiPAP; jb4 21:11 BP 123 / 75; Pulse 85; Resp 23 S; Pulse Ox 100% on 45 lpm BiPAP; as6 11:31 Body Mass Index 29.84 (99.79 kg, 182.88 cm) ld1 18:01 BIPAP 18/6, R18, 45% hb 18:42 45% hb MDM: 11:29 Patient medically screened. rn 16:55 ED course: Pt more alert now but still somnolent. ABG ordered. rn 17:24 Differential diagnosis: closed head injury, contusion, fracture, over medicated, CO2 rn retention, dehydration, COPD exacerbation. Data reviewed: vital signs, nurses notes, lab test result(s), radiologic studies, CT scan, and as a result, I will admit patient. Consideration of Admission/Observation Patient was admitted/placed on observation. Escalation of care including admission/observation considered. Counseling: I had a detailed discussion with the patient and/or guardian regarding the historical points, exam findings, and any diagnostic results supporting the discharge/admit diagnosis, lab results, radiology results, the need for further work-up and treatment in the hospital. ED course: Pt with respiratory acidosis, CO2 98, awakens to voice and tactile stimulation, will try bipap to see if able to blow off CO2 and improve mental status, if not will have to intubate. Pt with COPD at baseline with hypercarbia and given too much sedation by EMS. Will admit to hospitalist for further care and management. . 11/26 11:30 Order name: CBC with Diff; Complete Time: 12:52 11/26 11:30 Order name: Urinalysis w/ reflexes; Complete Time: 12:18 11/26 11:30 Order name: Protime (+inr); Complete Time: 12:18 11/26 11:30 Order name: Ptt, Activated; Complete Time: 12:18 11/26 11:30 Order name: CMP; Complete Time: 12:18 11/26 11:30 Order name: Troponin High Sensitivity; Complete Time: 12:18 11/26 11:30 Order name: BNP; Complete Time: 12:18 11/26 11:47 Order name: Urine Drug Screen; Complete Time: 12:18 [facility] 11/26 11:56 Order name: CBC Smear Scan; Complete Time: 12:52 EDUT 11/26 16:54 Order name: ABG; Complete Time: 18:27 11/26 19:54 Order name: ABG Arterial Blood Gas [facility] 11/26 11:30 Order name: CT Traumagram (Head C Spine CAP W Con); Complete Time: 13:48 11/26 11:30 Order name: XRAY Femur RIGHT; Complete Time: 14:56 11/26 11:30 Order name: XRAY Femur LEFT; Complete Time: 13:48 11/26 17:24 Order name: BIPAP 11/26 11:30 Order name: EKG; Complete Time: 11:31 11/26 13:04 Order name: Diet Regular; Complete Time: 13:04 [facility] 11/26 11:30 Order name: Labs collected and sent; Complete Time: 11:46 11/26 11:30 Order name: EKG - Nurse/Tech; Complete Time: 11:35 11/26 11:30 Order name: Cardiac monitoring; Complete Time: 11:35 11/26 11:30 Order name: O2 Sat Monitoring; Complete Time: 11:35 rn Administered Medications: No medications were administered Disposition Summary: 11/26/22 17:28 Hospitalization Ordered Hospitalization Status: Inpatient Admission rn Condition: Stable rn Problem: new rn Symptoms: have worsened rn Bed/Room Type: Standard rn Provider: Arsen Chauhan(11/26/22 18:31) la1 Location: Telemetry/MedSurg (Inpatient)(11/26/22 20:10) cg Room Assignment: Formerly named [facility](11/26/22 21:19) as6 Diagnosis - Altered mental status, unspecified rn - Fall on same level, unspecified rn - Acute respiratory failure with hypercapnia rn Forms: - Medication Reconciliation Form rn - SBAR form rn - 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 Total time: 35 minutes rn Signatures: Dispatcher [employer] EDMS Christopher Martínez MD MD rn Attema, Lee, COSTUME MAKER-C COSTUME MAKER-Cla1 Kenisha Osorio RN RN Nuzhat Coley RN RN ld1 Woo Delgadillo RN RN as6 Corrections: (The following items were deleted from the chart) 18:07 17:28 Arsen Chauhan rn la1 18:31 18:07 Andrei Sanchez la1 la1 18:38 17:28 Telemetry/MedSurg (Inpatient) rn la1 18:38 17:28 rn la1 20:10 18:38 Intensive Care Unit la1 cg 20:10 18:38 la1 cg 21:19 20:10 213 cg as6
--- NOTE | 2022-11-26 17:28 | ER ---
Nurse's Notes [facility] Name: Vikas Sharma Age: 66 yrs Sex: Male : 1955 Arrival Date: 11/26/2022 Time: 11:24 Bed 5 Private MD: Diagnosis: Altered mental status, unspecified;Fall on same level, unspecified;Acute respiratory failure with hypercapnia Presentation: 11/26 11:31 Chief complaint: EMS states: Toned out to patient home for a fall without injury - pt ld1 unable to get up by himself, unwitnessed fall, Negative LOC. EMS reports pt "not acting himself.". Coronavirus screen: At this time, the client does not indicate any symptoms associated with coronavirus-19. Ebola Screen: No symptoms or risks identified at this time. Initial Sepsis Screen: Does the patient meet any 2 criteria? No. Patient's initial sepsis screen is negative. Does the patient have a suspected source of infection? No. Patient's initial sepsis screen is negative. Risk Assessment: Do you want to hurt yourself or someone else? Patient reports no desire to harm self or others. Onset of symptoms was November 26, 2022. 11:31 Method Of Arrival: EMS: [facility] ld1 11:31 Acuity: DAPHNE 2 hb Triage Assessment: 11:31 General: Appears in no apparent distress. comfortable, Behavior is calm, cooperative, ld1 appropriate for age. Pain: Unable to use pain scale. Patient is disoriented. EENT: No signs and/or symptoms were reported regarding the EENT system. Neuro: Level of Consciousness is awake, alert, obeys commands, Oriented to person, place, time, situation. Cardiovascular: Capillary refill < 3 seconds Patient's skin is warm and dry. Rhythm is sinus rhythm. Respiratory: Airway is patent Respiratory effort is even, unlabored. GI: Abdomen is round non-distended. : No signs and/or symptoms were reported regarding the genitourinary system. Derm: No signs and/or symptoms reported regarding the dermatologic system. Musculoskeletal: No signs and/or symptoms reported regarding the musculoskeletal system. Historical: - Allergies: 11:30 No Known Allergies; ld1 - PMHx: 11:30 Psoriatic Arthritis; Hypertension; High Cholesterol; COPD; ld1 - Immunization history:: Adult Immunizations up to date. - Social history:: Smoking status: Patient reports the use of cigarette tobacco products, smokes one-half pack cigarettes per day. - Family history:: not pertinent. - Hospitalizations: : No recent hospitalization is reported. Screenin:34 [facility] ED Fall Risk Assessment (Adult) History of falling in the last 3 months, ld1 including since admission Yes- single mechanical fall (1 pt) Confusion or Disorientation Yes (5 pts) Impaired Gait Yes (1 pt) Score/Fall Risk Level 3 or more points = High Risk Oriented to surroundings, Maintained a safe environment, Educated pt \\T\\ family on fall prevention, incl call for assistance when getting out of bed, Assessed \\T\\ reinforced patient's understanding of fall precautions, Provided non-skid footwear, Hourly rounding (assess needs \\T\\ fall precautionary measures) done, Used ambulatory aids as needed (educated on \\T\\ assisted with), Used gait belt as appropriate. Abuse screen: Denies threats or abuse. Denies injuries from another. Nutritional screening: No deficits noted. Tuberculosis screening: No symptoms or risk factors identified. Assessment: 11:34 Reassessment: See triage assessment. ld1 12:53 Reassessment: Patient appears in no apparent distress at this time. No changes from hb previously documented assessment. Patient and/or family updated on plan of care and expected duration. Pain level reassessed. 14:07 Reassessment: Patient appears in no apparent distress at this time. No changes from hb previously documented assessment. Patient and/or family updated on plan of care and expected duration. Pain level reassessed. 14:47 Reassessment: Patient appears in no apparent distress at this time. No changes from ld1 previously documented assessment. Patient and/or family updated on plan of care and expected duration. Pain level reassessed. 15:38 Reassessment: Patient appears in no apparent distress at this time. Patient and/or hb family updated on plan of care and expected duration. Pain level reassessed. 16:16 Reassessment: Patient appears in no apparent distress at this time. No changes from hb previously documented assessment. Patient and/or family updated on plan of care and expected duration. Pain level reassessed. 17:48 Reassessment: ERP aware of lab results. Respiratory at bedside - pt being placed on ld1 BIPAP. Pt still drowsy., unable to stay awake - unaware of where he is. Patient denies pain at this time. 18:01 Reassessment: BIPAP 18/6, R18, 45%. hb 18:29 Reassessment: phone number - [phone] Claudia Norton. ld1 18:44 Reassessment: Patient appears in no apparent distress at this time. No changes from hb previously documented assessment. 19:15 Reassessment: Pt resting in bed with eyes closed, respirations are even and unlabored. jb4 Remains on bi-pap. 20:15 Reassessment: Patient appears in no apparent distress at this time. No changes from jb4 previously documented assessment. Patient and/or family updated on plan of care and expected duration. Pain level reassessed. 21:15 Reassessment: Patient appears in no apparent distress at this time. No changes from jb4 previously documented assessment. Patient and/or family updated on plan of care and expected duration. Pain level reassessed. Vital Signs: 11:31 BP 104 / 70; Pulse 77; Resp 15; Temp 97.8; Pulse Ox 98% on R/A; Weight 99.79 kg; Height ld1 6 ft. 0 in. ; 12:53 BP 106 / 65; Pulse 85; Resp 17; Pulse Ox 95% on R/A; hb 14:07 BP 108 / 72; Pulse 87; Resp 17; Pulse Ox 94% on R/A; hb 14:30 Pulse Ox 86% on R/A; hb 14:47 BP 115 / 73; Pulse 86; Resp 16; Pulse Ox 97% on 4 lpm NC; ld1 15:39 BP 127 / 75; Pulse 87; Resp 15; Pulse Ox 94% 4 lpm ; hb 16:16 BP 125 / 74; Pulse 88; Resp 15; Pulse Ox 95% on 4 lpm NC; hb 17:28 BP 122 / 75; Pulse 88; Resp 19; Pulse Ox 99% on R/A; ld1 18:01 Pulse Ox 97% ; hb 18:42 BP 131 / 74; Pulse 74; Resp 18; Pulse Ox 100% on BiPAP; hb 20:00 BP 137 / 87; Pulse 81; Resp 24; Pulse Ox 100% on BiPAP; jb4 21:11 BP 123 / 75; Pulse 85; Resp 23 S; Pulse Ox 100% on 45 lpm BiPAP; as6 11:31 Body Mass Index 29.84 (99.79 kg, 182.88 cm) ld1 18:01 BIPAP 18/6, R18, 45% hb 18:42 45% hb ED Course: 11:28 Patient arrived in ED. rn 11:29 Christopher Martínez MD is Attending Physician. rn 11:30 Nuzhat Coley, EVELINA is Primary Nurse. ld1 11:31 Arm band placed on right wrist. ld1 11:33 Triage completed. ld1 11:34 Patient has correct armband on for positive identification. Placed in gown. Bed in low ld1 position. Call light in reach. Side rails up X2. traffic monitor specialist on. Pulse ox on. NIBP on. Door closed. Noise minimized. Warm blanket given. 11:34 No provider procedures requiring assistance completed. Maintain EMS IV. Dressing ld1 intact. Good blood return noted. Site clean \\T\\ dry. Gauge \\T\\ site: 20G RFA. 11:47 Urinalysis w/ reflexes Sent. ld1 12:32 CT Traumagram (Head C Spine CAP W Con) In Process Unspecified. EDMS 12:51 XRAY Femur RIGHT In Process Unspecified. EDMS 12:51 XRAY Femur LEFT In Process Unspecified. EDMS 17:27 Arsen Chauhan MD is Hospitalizing Provider. rn 18:07 Andrei Sanchez MD is Hospitalizing Provider. la1 18:31 Arsen Chauhan MD is Hospitalizing Provider. la1 21:39 Patient admitted, IV remains in place. jb4 Administered Medications: No medications were administered Medication: 11:34 VIS not applicable for this client. ld1 Outcome: 17:28 Decision to Hospitalize by Provider. rn 21:38 Admitted to Med/surg accompanied by tech, via wheelchair, room 201, with oxygen, with jb4 chart. 21:38 Condition: stable 21:38 Discharge instructions given to patient, family, Instructed on the need for admit, Demonstrated understanding of instructions. 21:39 Patient left the ED. jb4 Signatures: Dispatcher [employer] EDMS Christopher Martínez MD MD rn Attema, Lee, AUTO BODY REPAIR TEACHER-C AUTO BODY REPAIR TEACHER-Cla1 Michelle Camacho RN RN Federico Couch RN RN jb4 Nuzhat Coley RN RN ld1 Woo Delgadillo RN RN as6 Corrections: (The following items were deleted from the chart) 11:46 11:31 Acuity: DAPHNE 3 ld1 hb
[2022-11-26 18:07] LABS: Arterial Blood Carboxyhemoglob 2.7 % (0-1.5); Blood Gas Oxyhemoglobin 11.3 % (94-97)
--- NOTE | 2022-11-26 19:19 | P.HP ---
Certification for Inpatient Patient admitted to: Observation With expected LOS: <2 Midnights Patient will require the following post-hospital care: None Practitioner: I am a practitioner with admitting privileges, knowledge of patient current condition, hospital course, and medical plan of care. Services: Services provided to patient in accordance with Admission requirements found in Title 42 Section 412.3 of the Code of Federal Regulations Patient History Date of Service: 11/26/22 Reason for admission: Respiratory failure History of Present Illness: 66-year-old male with history of COPD, hypertension, hyperlipidemia presents to the emergency department with chief complaint of fall. He had fallen at home and EMS came to arrive home, he initially refused transport and became combative, he was sedated with 2 mg of Ativan given IM and has since been very drowsy. During his stay in the emergency department he was becoming obtunded, ABG was obtained which revealed the patient was in hypercapnic respiratory failure, he was placed on BiPAP and has had slow, steady improvement although he was still requiring BiPAP. He need to be admitted under observation for acute hypercapnic respiratory failure likely secondary to benzodiazepine. Allergies No Known Allergies Allergy (Verified 10/07/22 15:14) Home Medications: Adalimumab [Humira 40 MG/0.8 ML*] 40 mg SQ SEECOM 05/27/19 Gabapentin [Neurontin] 800 mg PO TID 05/27/19 Hydrocodone Bit/Acetaminophen [Hydrocodon-Acetaminophn 10-325] 1 each PO QIDP PRN 05/27/19 Pravastatin Sodium [Pravachol] 40 mg PO BEDTIME 05/27/19 Levofloxacin [Levaquin] 500 mg PO DAILY #14 tablet 07/14/21 levoFLOXacin [Levaquin] 500 mg PO DAILY #10 tab 10/08/22 - Past Medical/Surgical History Diabetic: No -: Htn -: high Cholesterol -: psoriatic arthritis -: COPD -: R Knee Surgery -: Gideon Hip repalcement -: Hernia Repair x2 Psychosocial/ Personal History: Patient lives at home with his - Family History Family History: Reviewed- Non-Contributory - Social History Alcohol use: No CD- Drugs: No Caffeine use: Yes Place of Residence: Home Review of Systems 10-point ROS is otherwise unremarkable Respiratory: Shortness of Breath Physical Examination - Vital Signs Pulse: 78 Pulse Ox (%): 98 - Physical Exam General: Alert, In no apparent distress, Oriented x3 HEENT: Atraumatic, PERRLA, Mucous membr. moist/pink, EOMI, Sclerae nonicteric Neck: Supple, 2+ carotid pulse no bruit, No LAD, Without JVD or thyroid abnormality Respiratory: Diminished, Other (On BiPAP) Cardiovascular: No edema, Regular rate/rhythm, Normal S1 S2 Capillary refill: <2 Seconds Gastrointestinal: Normal bowel sounds, No tenderness Musculoskeletal: No tenderness Integumentary: No rashes Neurological: Normal gait, Normal speech, Normal strength at 5/5 x4 extr, Normal tone, Normal affect - Studies Laboratory Data (last 24 hrs) 11/26/22 11/26/22 11/26/22 11:41 11:41 11:41 WBC 6.70 Hgb 11.9 L Hct 38.0 L Plt Count 143 L PT 11.4 INR 1.04 APTT 29.9 Sodium 139 Potassium 3.9 BUN 18 Creatinine 0.65 L Glucose 97 Total Bilirubin 0.6 AST 23 ALT 22 Alkaline Phosphatase 133 H Assessment and Plan - Plan Assessment: Acute hypercapnic respiratory failure COPD Hypertension Hyperlipidemia Multiple falls Plan: Acute hypercapnic respiratory failure Likely secondary to benzodiazepine effects, continue BiPAP, repeat ABG to check for improvement. Patient mental status is improved. Will monitor oversight. Pulmonology consult. COPD As needed nebulizer treatments. Hypertension Hyperlipidemia Continue home medications Multiple falls PT consult DVT PPX: Lovenox Code status: Full Discharge Plan: Home Plan to discharge in: 24 Hours - Advance Directives Does patient have a Living Will: No Does patient have a Durable POA for Healthcare: No - Code Status/Comfort Care Code Status Assessed: Yes (Full code) Critical Care: No Time Spent Managing Pts Care (In Minutes): 55
[2022-11-26 19:52] LABS: Blood O2 Saturation 98.7 % (92-98.5)
[2022-11-26 19:53] LABS: Arterial Blood Carboxyhemoglob 2.5 % (0-1.5); Blood Gas Oxyhemoglobin 94.9 % (94-97)
[2022-11-26] MEDS ORDERED: IPRATROPIUM BROM 0.5MG/2.5ML NEB PRN (21:51)
[2022-11-26] MEDS ORDERED: ALBUTEROL 2.5 MG/3 ML NEB SOL NEB PRN (21:51)
[2022-11-26] MEDS ORDERED: ONDANSETRON 4 MG/2 ML VIAL IV PRN (21:51)
[2022-11-26 21:52] VITALS: BMI 23.5
[2022-11-26] MEDS: NA CHLORIDE 0.9% 1,000 ML IV SCH (22:18)
[2022-11-27] MEDS ORDERED: HALOPERIDOL LACT 5 MG/ML INJ IV ONE ×2 (03:29→04:49)
[2022-11-27] MEDS ORDERED: HALOPERIDOL LACT 5 MG/ML INJ ONE (04:00)
[2022-11-27 05:21] LABS: Blood Gas Oxyhemoglobin 92.9 % (94-97); Blood O2 Saturation 96.2 % (92-98.5)
[2022-11-27 05:22] LABS: Arterial Blood Carboxyhemoglob 2.2 % (0-1.5)
[2022-11-27 05:47] LABS: Absolute Lymphocytes (CBC) 0.8 K/uL (0.7-4.9); MCV 85.6 fL (80-100); MPV 7.4 fL (7.6-11.3); Platelets 159 thou/uL (152-406)
[2022-11-27 06:11] LABS: Potassium 4.2 mEq/L (3.5-5.1); Thyroid Stimulating Hormone 0.148 uIU/mL (0.358-3.740)
[2022-11-27] MEDS: ENOXAPARIN 40 MG/0.4 ML SQ SCH (08:03)
--- NOTE | 2022-11-27 08:11 | P.PN ---
Subjective Date of Service: 11/27/22 Chief Complaint: Respiratory failure Subjective: No new changes, Improving Physical Examination - Vital Signs Temperature: 97.9 F Blood Pressure: 139/87 Pulse: 87 Respirations: 25 Pulse Ox (%): 99 - Physical Exam General: Alert HEENT: Atraumatic, Normocephalic Neck: Supple Cardiovascular: Regular rate/rhythm, Normal S1 S2 Gastrointestinal: Soft and benign Neurological: Normal speech, Normal strength at 5/5 x4 extr - Studies Laboratory Data (last 24 hrs) 11/26/22 11/26/22 11/26/22 11:41 11:41 11:41 WBC 6.70 Hgb 11.9 L Hct 38.0 L Plt Count 143 L PT 11.4 INR 1.04 APTT 29.9 Sodium 139 Potassium 3.9 BUN 18 Creatinine 0.65 L Glucose 97 Total Bilirubin 0.6 AST 23 ALT 22 Alkaline Phosphatase 133 H Assessment And Plan - Plan Acute hypercapnic respiratory failure Likely secondary to benzodiazepine effects. Bipap effective for control of hypercapnia we will follow clinical symptoms closely. COPD Improved on present care. we will continue as needed nebulizer treatments. Hypertension We will continue antihypertensive meds and follow vitals per unit protocol. Hyperlipidemia Continue home medications Multiple falls PT consulted for recs. DVT PPX: Lovenox Code status: Full code. Discharge Plan: Home in next 24 to 48 Hours
[2022-11-27] MEDS: NA CHLORIDE 0.9% 1,000 ML IV SCH (11:16)
--- NOTE | 2022-11-27 17:27 | P.PN ---
Subjective Date of Service: 11/28/22 Chief Complaint: Respiratory failure No acute events overnight. He remains on 3.5 L nasal cannula. He does not know his baseline home oxygen requirements, but believes it to be 2 L. He reports shortness of breath and cough. He denies any chest pain or palpitations. Review of Systems 10-point ROS is otherwise unremarkable Respiratory: Cough, Shortness of Breath Physical Examination - Vital Signs Temperature: 97.8 F Blood Pressure: 178/97 Pulse: 105 Respirations: 20 Pulse Ox (%): 95 - Physical Exam General: Alert, In no apparent distress, Oriented x3 HEENT: Atraumatic, Mucous membr. moist/pink, Sclerae nonicteric Neck: JVD not distended Respiratory: Diminished, Expiratory wheezes Cardiovascular: No edema, Regular rate/rhythm, Normal S1 S2, No gallops, No rubs, No murmurs Gastrointestinal: Normal bowel sounds, Soft and benign, Non-distended, No tenderness, No rebound, No guarding Musculoskeletal: No clubbing Integumentary: No rashes Neurological: Normal speech, Normal affect - Studies Laboratory Data (last 24 hrs) 11/27/22 11/27/22 05:35 05:35 WBC 7.20 Hgb 11.5 L Hct 36.0 L Plt Count 159 Sodium 134 L D Potassium 4.2 BUN 15 Creatinine 0.54 L Glucose 85 Assessment And Plan - Plan # Acute on Chronic Hypercapnic, Hypoxic Respiratory Failure - likely secondary to Acute COPD Exacerbation - Evaluation thus far: - SpO2 dropped to 86 % early in admission - Initial ABG = pH 7.26, PCO2 98.7, PO2 103.0 - CT head/cervical spine/chest/abdomen/pelvis = "multiple healing right rib fractures, likely subacute or chronic in nature. No other acute traumatic findings. Soft tissue opacification along the previously visualized right inguinal hernia, could relate to presence of a nondistended bowel loop or fluid within the hernia sac. Trace bilateral pleural effusions. Dependent airspace opacification in the right lung, suggestive of atelectasis, with some scarring n ear the apex." - Management plan: - Consulted Pulmonary Medicine - recommendations appreciated - Bronchodilators and steroids per Pulm - Consulted Respiratory Therapy - Supplemental oxygen to maintain SpO2 > 92% - Encouraged incentive spirometry # Multiple Traumatic Ground-Level Falls complicated by Mulitple Right Rib Fractures and Chronic Right Hip Periprosthetic Fracture - Right femur x-ray = "likely chronic right hip periprosthetic fracture." - Orthopedic Surgery consulted and spoke with Dr. Scherer - recommendations appreciated - He reviewed films and stated that this is a chronic fracture, and he is okay to ambulate as tolerated with PT - Consulted PT # Hypertension - Reconcile home medications once verified # Hyperlipidemia - Continue home pravastatin # Subclinical Hyperthyroidism - TSH 0.148, Free T4 1.11 - Outpatient follow-up # Microscopic Hematuria - Advised to follow-up with PCP for further evaluation to exclude urologic malignancy Andrei Sanchez M.D.
[2022-11-27] MEDS: HYDROCODONE/APAP 7.5/325 MG TAB PO PRN (18:22)
[2022-11-27] MEDS ORDERED: GABAPENTIN 100 MG CAP PO SCH (21:00)
[2022-11-28] MEDS: HYDROCODONE/APAP 7.5/325 MG TAB PO PRN ×4 (00:14→18:10)
[2022-11-28] MEDS: NA CHLORIDE 0.9% 1,000 ML IV SCH (00:15)
[2022-11-28 03:17] LABS: Absolute Lymphocytes (CBC) 1.1 K/uL (0.7-4.9); Hematocrit 33.2 % (39.6-49.0); Lymphocytes % 16.2 % (15.3-44.8); MCV 83.9 fL (80-100); MPV 7.7 fL (7.6-11.3); Platelets 160 thou/uL (152-406); RBC Red Blood Cell Count 3.95 M/uL (4.33-5.43)
[2022-11-28 03:33] LABS: Potassium 3.2 mEq/L (3.5-5.1)
[2022-11-28] MEDS: ENOXAPARIN 40 MG/0.4 ML SQ SCH (07:21)
--- NOTE | 2022-11-28 09:37 | P.CNS ---
Date of Consult: 11/28/22 Reason for Consult: COPD exacerbation Chief Complaint: Respiratory failure History of Present Illness: Patient is 66 years of age history of COPD heavy smoker. With worsening dyspnea for the past 2-month using home oxygen at home is not using any bronchodilators patient is in distress short of breath prior history of there are other history of cardiopulmonary problem is any cough sputum hemoptysis Allergies No Known Allergies Allergy (Verified 10/07/22 15:14) Home Medications: Adalimumab [Humira 40 MG/0.8 ML*] 40 mg SQ SEECOM 05/27/19 Gabapentin [Neurontin] 800 mg PO TID 05/27/19 Hydrocodone Bit/Acetaminophen [Hydrocodon-Acetaminophn 10-325] 1 each PO QIDP PRN 05/27/19 Pravastatin Sodium [Pravachol] 40 mg PO BEDTIME 05/27/19 Levofloxacin [Levaquin] 500 mg PO DAILY #14 tablet 07/14/21 levoFLOXacin [Levaquin] 500 mg PO DAILY #10 tab 10/08/22 - Past Medical/Surgical History Diabetic: No -: Htn -: high Cholesterol -: psoriatic arthritis -: COPD -: R Knee Surgery -: Gideon Hip repalcement -: Hernia Repair x2 Psychosocial/ Personal History: Patient lives at home with his - Social History Smoking Status: Current every day smoker Alcohol use: No CD- Drugs: No Caffeine use: Yes Place of Residence: Home Review of Systems 10-point ROS is otherwise unremarkable Respiratory: Cough, Shortness of Breath Physical Examination Temp Pulse Resp BP Pulse Ox 98.1 F 70 16 140/82 93 11/28/22 08:00 11/28/22 08:00 11/28/22 08:00 11/28/22 08:00 11/28/22 08:00 General: Alert, Oriented x3, Moderate distress Respiratory: Clear to auscultation bilaterally, Expiratory wheezes Cardiovascular: No edema, Normal pulses, Regular rate/rhythm, Normal S1 S2 - Problems (1) COPD exacerbation Current Visit: Yes Status: Acute Plan: Patient is 66 years of age heavy smoker admitted with COPD exacerbation scheduled bronchodilators including steroid he does not use any scheduled bronchodilators at home patient came in with hypercapnic hypoxic respiratory failure right lower lobe is abnormal atelectasis versus an infection I will also added bronchodilators most likely has severe obstructive disease need follow-up chest x-rays pulmonary function test scheduled bronchodilators at home in addition to steroids the time of discharge
[2022-11-28] MEDS: IPRATROPIUM BROM 0.5MG/2.5ML NEB SCH ×3 (09:55→19:20)
[2022-11-28] MEDS: ALBUTEROL 2.5 MG/3 ML NEB SOL NEB SCH ×3 (09:55→19:20)
[2022-11-28] MEDS: levoFLOXacin 750 MG TAB PO SCH (11:22)
[2022-11-28] MEDS: DULERA 200/5 (MOMETASONE/FORMOTEROL) INHALER IH SCH ×2 (11:22→21:38)
[2022-11-28] MEDS: GABAPENTIN 100 MG CAP PO SCH ×2 (14:02→21:36)
--- NOTE | 2022-11-28 17:06 | CON ---
Reason For Consultation: Right hip pain. History Of Present Illness: Mr. Dempsey is well known to me. We have done a series of total joints over him in the last 30 years. This right hip was probably done 25 years prior. He sustained a gre ater trochanter fracture, but has not migrated and has been stented in at least 6 or 7 years. The fr acture line distally is still visible, but the greater trochanter is well attached and the joint is s table. It does not need any intervention at this time. Hopefully, his pulmonary congestion will res olve. CM/MODL Voice ID: [id number] Report ID: [id number]
[2022-11-28] MEDS: METHYLPREDNISOLONE 40 MG INJ IV SCH (18:08)
[2022-11-28] MEDS ORDERED: ATORVASTATIN 10 MG TAB PO SCH (21:00)
[2022-11-29] MEDS: METHYLPREDNISOLONE 40 MG INJ IV SCH ×2 (00:05→08:27)
[2022-11-29] MEDS: HYDROCODONE/APAP 7.5/325 MG TAB PO PRN ×3 (00:07→11:29)
[2022-11-29] MEDS: ALBUTEROL 2.5 MG/3 ML NEB SOL NEB SCH ×3 (01:05→13:45)
[2022-11-29] MEDS: IPRATROPIUM BROM 0.5MG/2.5ML NEB SCH ×3 (01:05→13:45)
[2022-11-29 03:30] LABS: Absolute Lymphocytes (CBC) 0.2 K/uL (0.7-4.9); Hematocrit 36.7 % (39.6-49.0); MCV 84.4 fL (80-100); MPV 8.2 fL (7.6-11.3); Platelets 168 thou/uL (152-406); RBC Red Blood Cell Count 4.34 M/uL (4.33-5.43)
[2022-11-29 03:39] LABS: Potassium 3.1 mEq/L (3.5-5.1)
[2022-11-29 03:59] LABS: Phosphorus 1.1 mg/dL (2.5-4.9)
[2022-11-29] MEDS: POTASS/SODIUM PHOSPHATE 1 PKT POWD.PACK PO SCH ×6 (05:08→11:00)
[2022-11-29 05:31] LABS: Anisocytosis 1+; Blood Morphology Comment NOTED (NOT SEEN); Platelet Estimate ADEQ; Teardrop Cell 1+
[2022-11-29] MEDS: ENOXAPARIN 40 MG/0.4 ML SQ SCH (08:19)
[2022-11-29] MEDS: GABAPENTIN 100 MG CAP PO SCH ×2 (08:20→13:31)
[2022-11-29] MEDS: levoFLOXacin 750 MG TAB PO SCH (08:20)
[2022-11-29] MEDS: DULERA 200/5 (MOMETASONE/FORMOTEROL) INHALER IH SCH (08:20)
[2022-11-29] MEDS ORDERED: POTASSIUM CL SA 10 MEQ TAB PO ONE (09:00)
--- NOTE | 2022-11-29 12:33 | P.PN ---
Subjective Date of Service: 11/29/22 Chief Complaint: COPD exacerbation Subjective: Improving (Patient is improving doing much better little short of breath) Review of Systems General: Weakness Respiratory: Shortness of Breath Physical Examination - Vital Signs Temperature: 97.3 F Blood Pressure: 167/81 Pulse: 85 Respirations: 20 Pulse Ox (%): 99 - Physical Exam General: Alert, Oriented x3 Respiratory: Clear to auscultation bilaterally, Diminished Cardiovascular: No edema, Regular rate/rhythm, Normal S1 S2 Assessment And Plan - Current Problems (Diagnosis) (1) COPD exacerbation Current Visit: Yes Status: Acute Plan: Patient is 66 years of age admitted with COPD exacerbation doing better he however patient has hypophosphatemia hypokalemia patient can be discharged home on Dulera and prednisone least 10 days the Dulera from the hospital he will need a long-acting bronchodilator check room air pulse ox need outpatient pulmonary function testing
[2022-11-29] MEDS ORDERED: POTASSIUM PHOS 44 MEQ in NA CHLORIDE 0.9% 500 ML IV ONE (13:00)
[2022-11-29 13:49] VITALS: O2SAT 95
[2022-11-29 17:03] VITALS: TEMP 98.5
[2022-11-29 17:04] VITALS: BP 144/74
--- NOTE | 2022-11-29 17:53 | P.DS ---
Admission Date: 11/27/22 Discharge Date: 11/29/22 Disposition: ROUTINE DISCHARGE Discharge Condition: SERIOUS Reason for Admission: COPD exacerbation Hospital Course: CESAR IS A COPD PATIENT WHO IS OXYGEN DEPENDENT. HE COMES WITH DYSPNEA, COUGH AND IMPROVES SOME WITH THERAPY. HE WANTS TO GO HOME. I SENT RX FOR MEDROL AND NEUTROPHOS FROM OFFICE. HE DOES NOT WANT TO GET IV KPHOS HERE. HE IS STABLE WITH OVERALL POOR PROGNOSIS HE CONTINUES TO SMOKE. HIS GROIN SWELLING FROM HERNIA HAS SUBSIDED FOR NOW. Vital Signs/Physical Exam: Temp Pulse Resp BP Pulse Ox 98.5 F 102 H 20 144/74 H 96 11/29/22 16:35 11/29/22 16:35 11/29/22 16:35 11/29/22 16:35 11/29/22 16:35 Laboratory Data at Discharge: WBC 4.10 thou/uL (4.3-10.9) L 11/29/22 02:22 Hgb 11.8 g/dL (13.6-17.9) L 11/29/22 02:22 Hct 36.7 % (39.6-49.0) L 11/29/22 02:22 Plt Count 168 thou/uL (152-406) 11/29/22 02:22 PT 11.4 SECONDS (9.5-12.5) 11/26/22 11:41 INR 1.04 11/26/22 11:41 APTT 29.9 SECONDS (24.3-36.9) 11/26/22 11:41 Sodium 134 mEq/L (136-145) L 11/29/22 02:22 Potassium 3.1 mEq/L (3.5-5.1) L 11/29/22 02:22 BUN 9 mg/dL (7-18) 11/29/22 02:22 Creatinine 0.82 mg/dL (0.70-1.30) 11/29/22 02:22 Glucose 274 mg/dL (74-106) H 11/29/22 02:22 Phosphorus 1.1 mg/dL (2.5-4.9) L* 11/29/22 02:22 Magnesium 2.0 mg/dL (1.6-2.4) 11/29/22 02:22 Total Bilirubin 0.6 mg/dL (0.2-1.0) 11/26/22 11:41 AST 23 U/L (15-37) 11/26/22 11:41 ALT 22 U/L (16-61) 11/26/22 11:41 Alkaline Phosphatase 133 U/L (45-117) H 11/26/22 11:41 Home Medications: Adalimumab [Humira 40 MG/0.8 ML*] 40 mg SQ SEECOM 05/27/19 Gabapentin [Neurontin] 800 mg PO TID 05/27/19 Hydrocodone Bit/Acetaminophen [Hydrocodon-Acetaminophn 10-325] 1 each PO QIDP PRN 05/27/19 Pravastatin Sodium [Pravachol] 40 mg PO BEDTIME 05/27/19 Levofloxacin [Levaquin] 500 mg PO DAILY #14 tablet 07/14/21 levoFLOXacin [Levaquin*] 500 mg PO DAILY #10 tab 10/08/22 Ipratropium/Albuterol Sulfate [Combivent Respimat Inhal [place]] 4 gm IH TID #1 11/29/22 New Medications: Ipratropium/Albuterol Sulfate [Combivent Respimat Inhal [place]] 4 gm IH TID #1 Followup: Joel Manzano MD [Primary Care Provider] -
--- NOTE | 2022-11-29 18:08 | EKG ---
Test Date: 2022-11-26 Test Time: 11:33:45 Hemodialysis Patient Care Specialist: CARLOS MEASUREMENT RESULTS: Intervals: Rate: 77 VA: 174 QRSD: 114 QT: 442 QTc: 500 [place]: P: 59 VA: 174 QRS: -20 T: 85 INTERPRETIVE STATEMENTS: Normal sinus rhythm T wave abnormality, consider lateral ischemia Prolonged QT Abnormal ECG Compared to ECG 10/07/2022 16:12:08 T-wave abnormality now present Possible ischemia now present Myocardial infarct finding no longer present Electronically Signed On 11-29-22 18:00:09 CDT by Haider Pereira
[2022-11-29] MEDS ORDERED: predniSONE 20 MG TAB PO SCH (21:00)
== END 2022-11-29 16:58 | disposition home or self-care (01) | DRG 189 ==
LOC: ER 11:24 → ERHOLD 18:32 → 2ND 20:44 → OBSVTOIN 11-27 14:06
PROVIDERS: ADMIT Internal Medicine; ATTEND Internal Medicine
PROC: 5A09457 Assistance with Respiratory Ventilation, 24-96 Consecutive Hours, Continuous Positive Airway Pressure (ICD-10-PCS; principal; 2022-11-27)
DX: J96.21 Acute and chronic respiratory failure with hypoxia (principal); E87.29 Other acidosis; J44.1 Chronic obstructive pulmonary disease with (acute) exacerbation; J96.22 Acute and chronic respiratory failure with hypercapnia; E78.00 Pure hypercholesterolemia, unspecified; I10 Essential (primary) hypertension; E87.6 Hypokalemia; E83.39 Other disorders of phosphorus metabolism; E05.80 Other thyrotoxicosis without thyrotoxic crisis or storm; K46.9 Unspecified abdominal hernia without obstruction or gangrene; L40.50 Arthropathic psoriasis, unspecified; S22.41XD Multiple fractures of ribs, right side, subsequent encounter for fracture with routine healing; S72.001D Fracture of unspecified part of neck of right femur, subsequent encounter for closed fracture with routine healing; M97.01XD Periprosthetic fracture around internal prosthetic right hip joint, subsequent encounter; F17.210 Nicotine dependence, cigarettes, uncomplicated; R31.29 Other microscopic hematuria; R29.6 Repeated falls; Z91.81 History of falling; Z79.899 Other long term (current) drug therapy; Z96.643 Presence of artificial hip joint, bilateral; W18.30XA Fall on same level, unspecified, initial encounter; Y92.019 Unspecified place in single-family (private) house as the place of occurrence of the external cause
CPT/HCPCS: 36415; 36600; 70450; 71260; 72125; 74177; 80048; 80053; 80307; 81001; 82805; 83735; 83880; 84100; 84439; 84443; 84484; 85025; 85610; 85730; 93005; 94640; 94660; 94760; 97116; 97161; 97530; 99285; G0378; J1630; J1650; J2920; J3535; J7030; J7040; J7613; J7644; Q9967